=== PATIENT | female | born 1945 | race Two or more races ===

== ENCOUNTER 2019-12-07 18:10 | Outpatient (REF) | payer MEDICARE, SELFPAY | END 2019-12-07 18:11 | disposition home or self-care (01) | LOC: HO.LAB 18:10 | PROVIDERS: PCP Internal Medicine; Visit Provider Internal Medicine | DX: Z20.828 Contact with and (suspected) exposure to other viral communicable diseases (principal) | CPT/HCPCS: 87635 ==

== ENCOUNTER → 2019-12-21 09:29 | Outpatient (BNVA) | payer MEDICARE, SELFPAY | PROVIDERS: PCP Internal Medicine; Referring Provider Internal Medicine; Visit Provider Student in an Organized Health Care Education/Training Program | DX: M65.341 Trigger finger, right ring finger (principal) | CPT/HCPCS: 20552; 99213 ==

== ENCOUNTER 2019-12-22 13:10 | Outpatient (REF) | payer MEDICARE, SELFPAY | END 2019-12-22 13:11 | disposition home or self-care (01) | LOC: HO.LAB 13:10 | PROVIDERS: PCP Internal Medicine; Visit Provider Internal Medicine | DX: Z20.828 Contact with and (suspected) exposure to other viral communicable diseases (principal) | CPT/HCPCS: 87635 ==

== ENCOUNTER 2020-01-01 11:49 | Emergency (ER) | payer MEDICARE, SELFPAY ==
[2020-01-01 11:56] VITALS: BP 151/71; PULSE 91; RESP 20; TEMP 36.9; O2SAT 98; BMI 24.2
--- NOTE | 2020-01-01 12:09 | CT_ITS ---
EXAMINATION: CT FACIAL BONES WITHOUT CONTRAST CLINICAL INFORMATION: Fall with right periorbital soft tissue swelling. Evaluate for fracture. COMPARISON: None TECHNIQUE: Multidetector CT imaging of the facial bones was performed without the use of intravenous contrast. Coronal and sagittal reformats are reviewed. This CT examination was performed using dose optimization techniques as appropriate, variously including the following: *Automated exposure control *Adjustment of mA and/or kV according to patient size (this includes techniques or standardized protocols for targeted exams where dose is matched to indication/reason for exam; i.e. extremities or head) *Use of iterative reconstruction technique DLP: 266 mGy-cm FINDINGS: Right periorbital soft tissue swelling. No post septal involvement. No retrobulbar hematoma. Orbits and globes are intact. There is no acute maxillofacial fracture. The pterygoid plates are intact. The zygomatic arches are intact. The lamina papyracea are intact. The orbital rims are intact. Small mucous retention cyst present within the inferior alveolar recess of the left maxillary sinus. Minimal mucosal thickening within the right maxillary inferior alveolar recess. Paranasal sinuses are otherwise well aerated. There is no deviation of the nasal septum. The ostiomeatal complexes are clear. The lamina papyracea are intact. The ethmoid roofs are symmetric. The carotid canals are normally covered by bone. No maxillary periapical disease is seen. The mastoid air cells and visualized middle ear cavities are well-aerated. The TMJs are unremarkable. The imaged portions of the brain demonstrate no acute abnormality. CT/CT facial bones wo con IMPRESSION: No acute facial bone fractures. Right periorbital soft tissue swelling.
--- NOTE | 2020-01-01 12:11 | ED_ITS ---
HPI - Fall General Chief Complaint: Eye Problems Stated Complaint: eye swelling, fall Time Seen by Provider: 01/01/20 12:01 Source: patient Mode of arrival: ambulatory Limitations: no limitations History of Present Illness HPI Narrative: 74 years old female who is in good health condition, was walking in the street yesterday tripped and fell forward could not catch her fall and fell landed on her face patient sustained black and blue around her right eye swelling, the falll has been 24 hours ago, no LOC, no headache, no nausea, no vomiting, no photophobia, no blurry vision, no vision change, Onset (ago): day(s) (1) Fall from: standing Fall witnessed: no Place fall occurred: street Loss of consciousness: none Symptoms prior to fall: none Context: tripped/slipped Location of injury: face Related Data Home Medications Medication Instructions Recorded Confirmed acetaminophen 325 mg capsule 325 mg PO QID PRN 12/21/19 atorvastatin 40 mg tablet 40 mg PO DAILY 12/21/19 cholecalciferol (vitamin D3) 25 25 mcg PO DAILY 12/21/19 mcg (1,000 unit) capsule hydroxyzine HCl 50 mg tablet 50 mg PO BID PRN 12/21/19 lisinopril 5 mg tablet 5 mg PO DAILY 12/21/19 metformin 500 mg tablet 500 mg PO BID 12/21/19 multivitamin 1 tab PO DAILY 12/21/19 Previous Rx's Medication Instructions Recorded metoprolol succinate 25 mg 25 mg PO DAILY #90 cap 12/30/19 tablet,extended release 24 hr Allergies Allergy/AdvReac Type Severity Reaction Status Date / Time Penicillins Allergy Mild NUMBNESS Verified 12/21/19 09:41 Review of Systems Review of Systems: All other systems are reviewed and are negative Constitutional: Reports as per HPI and Reports no additional constitutional complaints Eyes: Reports as per HPI and Reports no additional eye complaints Reports system reviewed and no additional complaints, except as documented Cardiovascular: Reports as per HPI and Reports no additional cardiovascular complaints Respiratory: Reports as per HPI and Reports no additional respiratory complaints Gastrointestinal: Reports as per HPI and Reports no additional gastrointestinal complaints Genitourinary: Reports no additional female genitourinary complaints Musculoskeletal: Reports no additional musculoskeletal complaints Skin/Breast: Reports system reviewed and no additional complaints, except as docu Psychiatric: Reports no additional psychiatric complaints Endocrine: Reports no additional endocrine complaints Hematologic/Lymphatic: Reports no additional hematologic/lymphatic complaints Allergic/Immunologic: Reports no additional allergic/immunologic complaints Reports system reviewed and no additional complaints, except as documented and Reports Abnormal speech present REPLACED BY [facility] Past Medical History Medical History Arthritis Diabetes mellitus, type 2 Hypertension Trigger finger Trigger ring finger of right hand Social History Social History Household Members: None Housing: Apartment Alcohol intake: never Smoking Status: Never smoker Smoked in Last 30 Days: No Use of substances other than those prescribed or required for medical reasons: No Advance Directives: No Advance Directives Information Provided: No Physical Exam Vital Signs: Vital Signs: Vital Signs Temp Pulse Resp BP Pulse Ox 01/01/20 11:56 98.4 F 91 20 151/71 H 98 Body Mass Index 24.2 vital signs have been reviewed as normal and appeared to be correct. Blood pressure In the high range. Heart rate normal. Respiration rate normal. Temperature normal. Oxygen saturation normal. Appearance: Alert. Oriented X3. No acute distress. Head: Normal external exam. Normocephalic. Atraumatic. No [place] signs noted. No raccoon eyes noted Eyes: PERRLA. EOMI. Conjunctiva and sclera normal. Eyelids normal. right periorbital swelling and ecchymosis. ENT: EAC normal. TM's Normal. Pharynx normal. Uvula midline. Moist mucous membranes. No trismus noted. No drooling noted. No muffled voice noted. Neck: Normal inspection. Neck supple. FROM. No adenopathy. Thyroid Normal. No meningeal signs. No neck mass noted. CVS: Normal heart rate and rhythm. Heart sound normal. No murmurs noted. Pulses normal throughout. Respiratory: No respiratory distress. Painless inspiration. Breath sounds normal. No wheezes/rales/rhonchi noted. Chest nontender. No accessory muscle usage noted or decreased air movement noted. Abdomen: Soft and nontender. Bowel sounds normal in all 4 quadrants. No distention noted. No organomegaly noted. No visible injury noted. Back: No CVA tenderness. Full range of motion noted. Skin: Skin warm and dry. Normal skin color. Normal skin turgor. No rashes/lesions/lacerations noted. Extremities: No lower extremity edema. Extremities exhibit normal range of motion. Extremities nontender. Neuro: Oriented X 3. No motor deficit. No sensory deficit. Reflexes normal. GCS 15 MDM - Fall MDM Narrative Medical decision making narrative: Assessment and plan. 74-year-old female tripped and fell yesterday hurt her right periorbital area, CT was unremarkable for acute fracture, GCS of 15, neuro exam is normal. Will discharge the patient. Imaging Data Facial CT: Radiologist's impression: No acute facial bone fractures. Right periorbital soft tissue swelling. Discharge Plan Discharge Clinical Impression: Accident due to mechanical fall without injury Qualifiers: Encounter type: initial encounter Qualified Code(s): W19.XXXA - Unspecified fall, initial encounter Facial contusion Qualifiers: Encounter type: initial encounter Qualified Code(s): S00.83XA - Contusion of other part of head, initial encounter Patient Disposition: Home, Self-Care Instructions: Facial Contusion (ED) Prescriptions: No Action metoprolol succinate 25 mg tablet extended release 24 hr 25 mg PO DAILY Qty: 90 RF: 3 lisinopril 5 mg tablet 5 mg PO DAILY RF: 0 metformin 500 mg tablet 500 mg PO BID RF: 0 atorvastatin 40 mg tablet 40 mg PO DAILY RF: 0 cholecalciferol (vitamin D3) 25 mcg (1,000 unit) capsule 25 mcg PO DAILY RF: 0 acetaminophen 325 mg capsule 325 mg PO QID PRNRF: 0 hydroxyzine HCl 50 mg tablet 50 mg PO BID PRNRF: 0 multivitamin [One Daily Multivitamin] Tablet 1 tab PO DAILY RF: 0 Referrals: Maxx Prieto MD [Primary Care Provider] - 2 days
[2020-01-01 14:08] VITALS: BP 142/65; PULSE 70; RESP 18; TEMP 36.9; O2SAT 98
== END 2020-01-01 19:37 | disposition home or self-care (01) ==
PROVIDERS: Emergency Provider Emergency Medicine; PCP Internal Medicine
DX: S00.93XA Contusion of unspecified part of head, initial encounter (principal); G44.309 Post-traumatic headache, unspecified, not intractable; W01.10XA Fall on same level from slipping, tripping and stumbling with subsequent striking against unspecified object, initial encounter; Y93.01 Activity, walking, marching and hiking; Y92.480 Sidewalk as the place of occurrence of the external cause; Y99.9 Unspecified external cause status; Z79.899 Other long term (current) drug therapy
CPT/HCPCS: 70486; 99284

== ENCOUNTER 2020-01-30 09:01 | Outpatient (REF) | payer MEDICARE, SELFPAY ==
[2020-01-30 10:21] LABS: MANUAL DIFF FLAG NO
[2020-01-30 10:33] LABS: Basophils Percent Auto 0.3 % (0-2); Eosinophils Absolute Auto 0.1 X10*3/uL (0.0-0.4); Eosinophils Percent Auto 0.8 % (0-4); Hematocrit 37.7 % (37-47); Hemoglobin 12.3 g/dl (12.0-16.0); Imm Gran Abs Auto 0.01 X10*3/uL (0.00-0.03); Imm Gran Pct Auto 0.2 % (0.0-0.4); Lymphocytes Absolute Auto 1.6 X10*3/uL (1.2-4.9); Lymphocytes Percent Auto 24.5 % (20-40); Mean Corpuscular HGB Conc 32.6 g/dl (31.0-35.0); Mean Corpuscular Hemoglobin 29.8 pg (27.0-33.0); Mean Corpuscular Volume 91.3 fL (80-98); Mean Platelet Volume 10.3 fL (9.4-12.3); Monocytes Absolute Auto 0.4 X10*3/uL (0.1-1.2); Monocytes Percent Auto 6.2 % (2-11); Neutrophils Absolute Auto 4.4 X10*3/uL (2.0-8.3); Platelet Count 280 X10*3/uL (160-400); Red Blood Count 4.13 X10*6/uL (4.20-5.50); Red Cell Distribution Width 13.8 % (11.0-16.0); White Blood Count 6.4 X10*3/uL (4.8-10.8)
[2020-01-30 10:49] LABS: Glucose Urine UA NEG (NEG); Leukocyte Esterase Urine 2+ (NEG); Nitrite Urine NEG (NEG); Specific Gravity - Urine <= 1.005 (1.005-1.025); Urine Blood NEG (NEG); Urine Ketones NEG (NEG); Urine Protein NEG (NEG-TRACE)
[2020-01-30 10:50] LABS: Estimated Average Glucose 117 mg/dL; Hemoglobin A1c % 5.7 %
[2020-01-30 10:51] LABS: Appearance Urine CLEAR; Color Urine YELLOW
[2020-01-30 11:06] LABS: Bacteria Urine TRACE /LPF; RBC Urine 0 /HPF (0); Renal Epithelial Cells Urine 1+ /LPF; Squamous Epithelial Cell Urine 1+ /LPF
[2020-01-30 11:08] LABS: Alanine Aminotransferase 33 U/L (0-31); Alkaline Phosphatase 67 U/L (39-117); Anion Gap 10 (12-20); Aspartate Amino Transferase 28 U/L (5-31); Bilirubin Total 0.6 mg/dL (0.0-1.0); Blood Urea Nitrogen 11 mg/dL (9-16); Calcium 9.1 mg/dL (8.4-10.2); Carbon Dioxide 31 mmol/L (22-29); Chloride 101 mmol/L (96-108); Cholesterol 166 mg/dL; Estimated Glomerular Filt Rate > 60; Glucose Fasting 96 mg/dL (60-99); HDL Cholesterol 63 mg/dL; LDL Cholesterol Calculated 88 mg/dl; Potassium 4.1 mmol/l (3.3-5.1); Sodium 138 mmol/L (135-145); Total Protein 7.1 g/dL (6.5-8.0); Triglycerides 78 mg/dL
[2020-01-30 11:30] LABS: TSH reflex Free T4 1.88 mIU/mL (0.32-4.0); Vitamin D 25-OH Total 28.4 ng/mL (>30)
[2020-01-30 11:41] LABS: Folate 14.7 ng/mL (> or = 4.0); Vitamin B12 490 pg/mL (200-900)
[2020-01-30 12:38] LABS: Creatinine Urine 28.18 mg/dL; Microalbum/Creatinine Ratio Ur 56.7 ug/mg cr
== END 2020-01-30 09:02 | disposition home or self-care (01) ==
LOC: HO.LAB 09:01
PROVIDERS: PCP Internal Medicine; Visit Provider Nurse Practitioner Family
DX: E11.9 Type 2 diabetes mellitus without complications (principal); E78.00 Pure hypercholesterolemia, unspecified; I10 Essential (primary) hypertension; E53.8 Deficiency of other specified B group vitamins; K21.9 Gastro-esophageal reflux disease without esophagitis; E55.9 Vitamin D deficiency, unspecified; E66.3 Overweight
CPT/HCPCS: 36415; 80053; 80061; 81001; 82043; 82306; 82607; 82746; 83036; 84443; 85025; 87086

== ENCOUNTER 2020-03-08 10:28 | Outpatient (REF) | payer MEDICARE, SELFPAY ==
--- NOTE | 2020-03-08 10:32 | MM_ITS ---
EXAMINATION: MM SCREENING DIGITAL BREAST TOMOSYNTHESIS, BILATERAL CLINICAL INFORMATION: Screening. Asymptomatic. The lifetime risk of breast cancer based on the Tyrer-Cuzick Model is 3%. COMPARISON: Mammography: 02/17/2019, 02/11/2018, 01/19/2017 TECHNIQUE: Digital breast tomosynthesis is performed in both the craniocaudal and mediolateral oblique views along with computer-aided detection (CAD). Synthesized 2D images are generated from the tomosynthesis. FINDINGS: There are scattered areas of fibroglandular density (ACR BI-RADS breast composition Category b). Breast tissue composition borders on predominantly fatty. There is no significant mass or architectural abnormality. There are scattered bilateral benign coarse calcifications again seen including small oil cyst with peripheral calcification anterior medial left breast. There are some grouped coarse calcifications mid 3:00 right breast and posterior 9:00 right breast. No significant changes. MM/MM tomosynthesis screening BI IMPRESSION: No significant changes from prior studies. ASSESSMENT: BI-RADS 2: Benign RECOMMENDATION: Routine annual mammography screening. This patient's information was entered into a reminder system with a target due date for their next mammogram.
== END 2020-03-08 10:29 | disposition home or self-care (01) ==
LOC: HO.MAMMO 10:28
PROVIDERS: Visit Provider Internal Medicine
DX: Z12.31 Encounter for screening mammogram for malignant neoplasm of breast (principal)
CPT/HCPCS: 77063; 77067

== ENCOUNTER 2020-04-26 08:45 | Outpatient (REF) | payer MEDICARE, SELFPAY ==
[2020-04-26 09:49] LABS: MANUAL DIFF FLAG NO
[2020-04-26 09:59] LABS: Glucose Urine UA NEG (NEG); Leukocyte Esterase Urine 1+ (NEG); Nitrite Urine NEG (NEG); PH 5.5 (5.0-8.0); Specific Gravity - Urine 1.025 (1.005-1.025); UACC Culture Trigger YES; Urine Blood NEG (NEG); Urine Ketones NEG (NEG); Urine Protein NEG (NEG-TRACE)
[2020-04-26 10:00] LABS: Basophils Percent Auto 0.4 % (0-2); Eosinophils Absolute Auto 0.1 X10*3/uL (0.0-0.4); Eosinophils Percent Auto 1.8 % (0-4); Hematocrit 40.2 % (37-47); Hemoglobin 13.1 g/dl (12.0-16.0); Imm Gran Abs Auto 0.01 X10*3/uL (0.00-0.03); Imm Gran Pct Auto 0.2 % (0.0-0.4); Lymphocytes Absolute Auto 1.8 X10*3/uL (1.2-4.9); Lymphocytes Percent Auto 31.5 % (20-40); Mean Corpuscular HGB Conc 32.6 g/dl (31.0-35.0); Mean Corpuscular Hemoglobin 29.7 pg (27.0-33.0); Mean Corpuscular Volume 91.2 fL (80-98); Mean Platelet Volume 10.3 fL (9.4-12.3); Monocytes Absolute Auto 0.4 X10*3/uL (0.1-1.2); Monocytes Percent Auto 6.3 % (2-11); Neutrophils Absolute Auto 3.4 X10*3/uL (2.0-8.3); Neutrophils Percent Auto 59.8 % (45-73); Platelet Count 286 X10*3/uL (160-400); Red Blood Count 4.41 X10*6/uL (4.20-5.50); Red Cell Distribution Width 12.8 % (11.0-16.0); White Blood Count 5.6 X10*3/uL (4.8-10.8)
[2020-04-26 10:07] LABS: Appearance Urine CLEAR; Color Urine YELLOW
[2020-04-26 10:21] LABS: Alanine Aminotransferase 42 U/L (0-31); Albumin Level 4.1 g/dL (3.5-5.0); Alkaline Phosphatase 71 U/L (39-117); Anion Gap 13 (12-20); Aspartate Amino Transferase 32 U/L (5-31); Bilirubin Total 0.5 mg/dL (0.0-1.0); Blood Urea Nitrogen 13 mg/dL (9-16); Calcium 9.6 mg/dL (8.4-10.2); Carbon Dioxide 30 mmol/L (22-29); Chloride 104 mmol/L (96-108); Cholesterol 186 mg/dL; Estimated Glomerular Filt Rate > 60; Glucose Fasting 108 mg/dL (60-99); HDL Cholesterol 72 mg/dL; LDL Cholesterol Calculated 99 mg/dl; Sodium 142 mmol/L (135-145); Total Protein 7.3 g/dL (6.5-8.0); Triglycerides 75 mg/dL
[2020-04-26 10:22] LABS: Mucus Urine 1+ /LPF; RBC Urine 0 /HPF (0); Squamous Epithelial Cell Urine 1+ /LPF
[2020-04-26 10:24] LABS: Estimated Average Glucose 120 mg/dL; Hemoglobin A1c % 5.8 %
[2020-04-26 10:26] LABS: Creatinine Urine 106.18 mg/dL; Microalbum/Creatinine Ratio Ur 13.1 ug/mg cr
[2020-04-26 10:45] LABS: TSH reflex Free T4 2.56 uIU/mL (0.32-4.0); Vitamin D 25-OH Total 29.3 ng/mL (>30)
[2020-04-26 17:48] LABS: Folate 15.1 ng/mL (> or = 4.0); Vitamin B12 561 pg/mL (200-900)
== END 2020-04-26 08:46 | disposition home or self-care (01) ==
LOC: HO.LAB 08:45
PROVIDERS: Visit Provider Internal Medicine
DX: I10 Essential (primary) hypertension (principal); K21.9 Gastro-esophageal reflux disease without esophagitis; E53.8 Deficiency of other specified B group vitamins; E78.00 Pure hypercholesterolemia, unspecified; E11.9 Type 2 diabetes mellitus without complications; R00.2 Palpitations; E66.3 Overweight; E55.9 Vitamin D deficiency, unspecified
CPT/HCPCS: 36415; 80053; 80061; 81001; 81003; 82043; 82306; 82607; 82746; 83036; 84443; 85025; 87086

== ENCOUNTER 2020-06-20 08:24 | Outpatient (REF) | payer MEDICARE, SELFPAY ==
--- NOTE | ~2020-06-20 | MM_ITS ---
EXAMINATION: BONE DENSITOMETRY CLINICAL INDICATION: Asymptomatic menopausal state. COMPARISON: Previous BD dated 08/24/2015 and baseline BD dated 01/25/2007. TECHNIQUE: Using a flux - neutrinity DXA System (software version: 13.1) manufactured by [employer], dual-energy x-ray absorptiometry was performed of the lumbar spine and left hip. The images are of good technical quality. Summary results are attached. FINDINGS: AP SPINE L1-L4: Current: BMD 1.193 g/cm2, Z-score 1.9, T-score 0.1, normal, 0.4% increase from previous, 3.0% decrease from baseline (<5% change is not significant). Prior: BMD 1.188 g/cm2. Baseline: BMD 1.230 g/cm2. LEFT FEMUR, NECK: Current: BMD 0.968 g/cm2, Z-score 1.4, T-score -0.5, normal. Prior: BMD 0.959 g/cm2. Baseline: BMD 1.058 g/cm2. LEFT FEMUR, TOTAL: Current: BMD 1.003 g/cm2, Z-score 1.6, T-score 0.0, normal, 2.1% decrease from previous, 11.1% decrease from baseline (<5% change is not significant). Prior: BMD 1.025 g/cm2. Baseline: BMD 1.128 g/cm2. IDENTIFIED RISK FACTORS: Rheumatoid arthritis, recurrent falls, menopause. HISTORY OF FRACTURE: None listed. MEDICATIONS: Calcium supplements or multivitamin, vitamin D. MM/XR DEXA axial skeleton IMPRESSION: 1. DIAGNOSIS: Normal bone density based on the lowest T-score value of -0.5 in the femoral neck applying World Health Organization criteria. 2. 10-YEAR FRACTURE RISK PREDICTION, FRAX: Major osteoporotic fracture (clinical spine, forearm, hip or shoulder) 6.1%. Hip fracture 0.7%. 3. Treatment Recommendations: NOF guidelines recommend consideration for treatment in postmenopausal women and men age 50 and older presenting with the following: -A hip or vertebral (clinical or morphometric) fracture. -T-score less than or equal to -2.5 at the femoral neck or spine after appropriate evaluation to exclude secondary causes. -Low bone mass at the hip or spine and a 10-year fracture probability by FRAX of greater than or equal to 3% for hip fracture or greater than or equal to 20% for major osteoporotic fracture based on the [place] adapted WHO algorithm. 4. Other Recommendations: All treatment decisions require clinical judgment and consideration of individual patient factors, including patient preferences, comorbidities, previous drug use, risk factors not captured in the FRAX model (e.g. frailty, falls, vitamin D deficiency, increased bone turnover, interval significant decline in bone density) and possible under or overestimation of fracture risk by FRAX. FUTURE SCAN RECOMMENDATION: People with diagnosed cases of osteoporosis or at high risk for fracture should have regular bone mineral density tests. For patients eligible for Medicare, routine testing is allowed once every 2 years. The testing frequency can be increased to one year for patients who have rapidly progressing disease, those who are receiving or discontinuing medical therapy to restore bone mass, or have additional risk factors.
== END 2020-06-20 08:25 | disposition home or self-care (01) ==
LOC: HO.MAMMO 08:24
PROVIDERS: Visit Provider Internal Medicine
DX: Z13.820 Encounter for screening for osteoporosis (principal); M06.9 Rheumatoid arthritis, unspecified; Z78.0 Asymptomatic menopausal state; Z91.81 History of falling
CPT/HCPCS: 77080

== ENCOUNTER → 2020-09-04 08:25 | Outpatient (BNVA) | payer MEDICARE, SELFPAY | PROVIDERS: PCP Internal Medicine; Visit Provider Surgery Vascular Surgery | DX: I83.12 Varicose veins of left lower extremity with inflammation (principal) | CPT/HCPCS: 99202 ==

== ENCOUNTER 2020-09-25 12:39 | Outpatient (REF) | payer MEDICARE, SELFPAY ==
--- NOTE | ~2020-09-25 | US_ITS ---
EXAMINATION: RIGHT AND LEFT LOWER EXTREMITY VENOUS ULTRASOUND (REFLUX EXAM) CLINICAL INDICATION: Varicose veins of left lower extremity with inflammation. Patient gives history of bilateral lower extremity venous procedures but she does not remember what type. COMPARISON: None. TECHNIQUE: Color flow triplex imaging and compression Doppler was performed to evaluate both the deep and the superficial systems bilaterally. To evaluate the superficial system, the examination was performed in the upright position. Color-flow Doppler ultrasound and compression ultrasound were utilized. In addition, maneuvers were utilized to demonstrate reflux. FINDINGS: 1. DEEP VENOUS ULTRASOUND OF THE RIGHT LOWER EXTREMITY: Respiratory variation, normal compression and augmented flow are noted in the right common femoral vein as well as the right popliteal vein and there is no evidence of deep venous thrombosis at these locations. There is no reflux of contrast within the common femoral vein or at the greater saphenous vein junction. There is reflux of contrast within the mid superficial femoral vein of 1.2 seconds and in the popliteal vein at 1.6 seconds. There is no evidence of a popliteal fossa cyst. 2. SUPERFICIAL ULTRASOUND WITH DOPPLER OF RIGHT LOWER EXTREMITY: The right great saphenous vein remnant at the saphenofemoral junction measures 6 mm. There is no reflux seen at this level. The superficial femoral vein in the proximal thigh and midthigh as well as above the knee is not identified. The popliteal vein at the knee is not identified. Below the knee vein is not identified. Within the midcalf it measures 3 mm without reflux and at the ankle it measures 1 mm without reflux. The small saphenous vein at the saphenofemoral junction measures 7 mm in diameter and there is no reflux within the small saphenous vein down to the distal calf. There is a midcalf button riveter measuring 4 mm in diameter without reflux. There are varicosities seen off the greater saphenous vein remnant in the midthigh measuring 4 mm with reflux of 3 seconds duration and at the knee measuring 4 mm with reflux at 3.3 seconds duration. 3. DEEP VENOUS ULTRASOUND OF THE LEFT LOWER EXTREMITY: Respiratory variation, normal compression and augmented flow are noted in the left common femoral vein as well as the left popliteal vein and there is no evidence of deep venous thrombosis at these locations. There is no evidence of reflux in the deep system in either the common femoral vein or the popliteal vein. No popliteal fossa cyst is identified. There appears to be a small knee effusion. 4. SUPERFICIAL ULTRASOUND WITH DOPPLER OF LEFT LOWER EXTREMITY: Greater saphenous vein is not well identified to the level above the knee. There appears to be a few varices, studies present without reflux. At the level of the knee the vein measures 2 mm in diameter without reflux. At the level below the knee vessel measures 2 mm in diameter and has reflux up to 1.5 seconds. At the midcalf it measures 2 mm without reflux and at the left ankle it measures 1 mm without reflux. The small saphenous vein measures 4 mm in diameter at the saphenofemoral junction. No reflux is identified within the small saphenous vein down to the distal calf. US/US venous duplex LE BI IMPRESSION: No evidence of acute deep venous thrombosis within the deep system of the right and right lower extremity deep venous insufficiency from the mid femoral vein to the popliteal vein. Status post bilateral lower extremity venous procedures with appearance of ablation. No reflux is identified at either the right or left saphenofemoral junctions at the remnants. There is left lower extremity venous insufficiency below the knee up to 1.5 seconds in duration within greater saphenous vein. There are varicosities off the remnant within the right lower extremity at the distal thigh and knee.
== END 2020-09-25 12:40 | disposition home or self-care (01) ==
LOC: HO.US 12:39
PROVIDERS: Visit Provider Surgery Vascular Surgery
DX: I83.893 Varicose veins of bilateral lower extremities with other complications (principal); I83.12 Varicose veins of left lower extremity with inflammation
CPT/HCPCS: 93970

== ENCOUNTER → 2020-10-04 09:40 | Outpatient (BNVA) | payer MEDICARE, SELFPAY | PROVIDERS: PCP Internal Medicine; Visit Provider Surgery Vascular Surgery | DX: I83.12 Varicose veins of left lower extremity with inflammation (principal) | CPT/HCPCS: 99212 ==

== ENCOUNTER → 2020-11-02 09:22 | Outpatient (BNVA) | payer MEDICARE, SELFPAY | PROVIDERS: PCP Internal Medicine; Referring Provider Internal Medicine; Visit Provider Surgery Vascular Surgery | DX: I83.12 Varicose veins of left lower extremity with inflammation (principal); I87.8 Other specified disorders of veins | CPT/HCPCS: 36475 ==

== ENCOUNTER 2020-11-07 08:32 | Outpatient (REF) | payer MEDICARE, SELFPAY ==
[2020-11-07 09:27] LABS: MANUAL DIFF FLAG NO
[2020-11-07 09:39] LABS: Basophils Percent Auto 0.4 % (0-2); Eosinophils Absolute Auto 0.1 X10*3/uL (0.0-0.4); Eosinophils Percent Auto 1.6 % (0-4); Hematocrit 39.2 % (37-47); Hemoglobin 12.6 g/dl (12.0-16.0); Imm Gran Abs Auto 0.01 X10*3/uL (0.00-0.03); Imm Gran Pct Auto 0.2 % (0.0-0.4); Lymphocytes Absolute Auto 1.6 X10*3/uL (1.2-4.9); Lymphocytes Percent Auto 32.9 % (20-40); Mean Corpuscular HGB Conc 32.1 g/dl (31.0-35.0); Mean Corpuscular Hemoglobin 29.2 pg (27.0-33.0); Mean Corpuscular Volume 90.7 fL (80-98); Mean Platelet Volume 10.2 fL (9.4-12.3); Monocytes Absolute Auto 0.4 X10*3/uL (0.1-1.2); Monocytes Percent Auto 8.7 % (2-11); Neutrophils Absolute Auto 2.8 X10*3/uL (2.0-8.3); Neutrophils Percent Auto 56.2 % (45-73); Platelet Count 291 X10*3/uL (160-400); Red Blood Count 4.32 X10*6/uL (4.20-5.50); Red Cell Distribution Width 13.2 % (11.0-16.0); White Blood Count 4.9 X10*3/uL (4.8-10.8)
[2020-11-07 09:54] LABS: Appearance Urine CLEAR; Color Urine YELLOW; Glucose Urine UA NEG (NEG); Leukocyte Esterase Urine TRACE (NEG); Nitrite Urine NEG (NEG); UACC Culture Trigger YES; Urine Blood NEG (NEG); Urine Ketones NEG (NEG); Urine Protein NEG (NEG-TRACE)
[2020-11-07 10:13] LABS: Alanine Aminotransferase 23 U/L (0-31); Albumin Level 3.9 g/dL (3.5-5.0); Alkaline Phosphatase 69 U/L (39-117); Anion Gap 14 (12-20); Aspartate Amino Transferase 27 U/L (5-31); Bilirubin Total 0.4 mg/dL (0.0-1.0); Blood Urea Nitrogen 11 mg/dL (9-16); Calcium 9.9 mg/dL (8.4-10.2); Carbon Dioxide 29 mmol/L (22-29); Chloride 103 mmol/L (96-108); Cholesterol 157 mg/dL; Estimated Glomerular Filt Rate > 60; Glucose Fasting 101 mg/dL (60-99); HDL Cholesterol 60 mg/dL; LDL Cholesterol Calculated 84 mg/dl; Potassium 5.1 mmol/L (3.3-5.1); Sodium 141 mmol/L (135-145); Total Protein 6.8 g/dL (6.5-8.0); Triglycerides 69 mg/dL
[2020-11-07 10:32] LABS: Estimated Average Glucose 120 mg/dL; Hemoglobin A1c % 5.8 %
[2020-11-07 10:37] LABS: TSH reflex Free T4 2.78 uIU/mL (0.32-4.0); Vitamin D 25-OH Total 33.9 ng/mL (>30)
[2020-11-07 10:46] LABS: RBC Urine 0 /HPF (0); Squamous Epithelial Cell Urine 1+ /LPF; WBC Urine 0-2 /HPF (0-4)
[2020-11-07 10:51] LABS: Folate 19.5 ng/mL (> or = 4.0); Vitamin B12 405 pg/mL (200-900)
[2020-11-07 11:07] LABS: Creatinine Urine 53.63 mg/dL; Microalbum/Creatinine Ratio Ur 11.1 ug/mg cr
== END 2020-11-07 08:33 | disposition home or self-care (01) ==
LOC: HO.LAB 08:32
PROVIDERS: PCP Internal Medicine; Visit Provider Internal Medicine
DX: E11.9 Type 2 diabetes mellitus without complications (principal); E78.00 Pure hypercholesterolemia, unspecified; I10 Essential (primary) hypertension; E53.8 Deficiency of other specified B group vitamins; E55.9 Vitamin D deficiency, unspecified; K21.9 Gastro-esophageal reflux disease without esophagitis; E66.3 Overweight; R00.2 Palpitations
CPT/HCPCS: 36415; 80053; 80061; 81001; 81003; 82043; 82306; 82607; 82746; 83036; 84443; 85025; 87086

== ENCOUNTER 2020-11-15 09:25 | Outpatient (REF) | payer MEDICARE, SELFPAY ==
--- NOTE | ~2020-11-15 | XR_ITS ---
EXAMINATION: XR KNEE, LEFT CLINICAL INFORMATION: Left knee pain. History of fall last year. COMPARISON: None TECHNIQUE: Four views of the left knee. FINDINGS: There is tricompartmental osteophyte formation. The joint spaces are maintained. No acute fracture or subluxation. No overt knee joint effusion. No chondrocalcinosis. 0.3 cm osteochondral body is present within the posterior knee joint. XR/XR knee LT 4V IMPRESSION: * No acute fracture or malalignment at the left knee. * Mild tricompartment osteoarthritis. A small intra-articular osteochondral body is present within the posterior knee joint.
== END 2020-11-15 09:26 | disposition home or self-care (01) ==
LOC: HO.XRAY 09:25
PROVIDERS: PCP Internal Medicine; Visit Provider Internal Medicine
DX: M25.562 Pain in left knee (principal)
CPT/HCPCS: 73564

== ENCOUNTER → 2021-01-18 10:36 | Outpatient (BNVA) | payer MEDICARE, SELFPAY | PROVIDERS: PCP Internal Medicine; Visit Provider Physician Assistant | DX: M17.12 Unilateral primary osteoarthritis, left knee (principal) | CPT/HCPCS: 20610; 99212; J1040 ==

== ENCOUNTER 2021-02-12 08:28 | Outpatient (REF) | payer MEDICARE, SELFPAY ==
[2021-02-12 08:57] LABS: MANUAL DIFF FLAG NO
[2021-02-12 09:31] LABS: Basophils Percent Auto 0.3 % (0-2); Eosinophils Absolute Auto 0.1 X10*3/uL (0.0-0.4); Eosinophils Percent Auto 1.2 % (0-4); Hematocrit 38.5 % (37.0-47.0); Hemoglobin 12.5 g/dl (12.0-16.0); Imm Gran Abs Auto 0.02 X10*3/uL (0.00-0.03); Imm Gran Pct Auto 0.3 % (0.0-0.4); Lymphocytes Absolute Auto 2.1 X10*3/uL (1.2-4.9); Mean Corpuscular HGB Conc 32.5 g/dl (31.0-35.0); Mean Corpuscular Hemoglobin 29.6 pg (27.0-33.0); Mean Platelet Volume 10.1 fL (9.4-12.3); Monocytes Absolute Auto 0.4 X10*3/uL (0.1-1.2); Monocytes Percent Auto 6.9 % (2-11); Neutrophils Absolute Auto 3.3 x10*3/uL (2.0-8.3); Neutrophils Percent Auto 56.3 % (45-73); Platelet Count 316 X10*3/uL (160-400); Red Blood Count 4.23 X10*6/uL (4.20-5.50); Red Cell Distribution Width 13.3 % (11.0-16.0); White Blood Count 5.9 X10*3/uL (4.8-10.8)
[2021-02-12 09:40] LABS: Estimated Average Glucose 123 mg/dL; Hemoglobin A1c % 5.9 %
[2021-02-12 10:06] LABS: Alanine Aminotransferase 26 U/L (0-31); Alkaline Phosphatase 69 U/L (39-117); Anion Gap 13 (12-20); Aspartate Amino Transferase 26 U/L (5-31); Bilirubin Total 0.4 mg/dL (0.0-1.0); Blood Urea Nitrogen 10 mg/dL (9-16); Carbon Dioxide 28 mmol/L (22-29); Chloride 104 mmol/L (96-108); Cholesterol 178 mg/dL; Estimated Glomerular Filt Rate > 60; Glucose Fasting 101 mg/dL (60-99); HDL Cholesterol 64 mg/dL; LDL Cholesterol Calculated 100 mg/dl; Potassium 4.6 mmol/L (3.3-5.1); Sodium 140 mmol/L (135-145); Triglycerides 70 mg/dL
[2021-02-12 10:08] LABS: Appearance Urine CLEAR; Color Urine YELLOW; Glucose Urine UA NEG (NEG); Leukocyte Esterase Urine 1+ (NEG); Nitrite Urine NEG (NEG); PH 5.5 (5.0-8.0); Specific Gravity - Urine 1.015 (1.005-1.025); UACC Culture Trigger YES; Urine Blood NEG (NEG); Urine Ketones NEG (NEG); Urine Protein NEG (NEG-TRACE)
[2021-02-12 10:15] LABS: TSH reflex Free T4 3.09 uIU/mL (0.32-4.0)
[2021-02-12 10:32] LABS: Creatinine Urine 79.05 mg/dL; Microalbum/Creatinine Ratio Ur 10.1 ug/mg cr
[2021-02-12 10:41] LABS: RBC Urine 0 /HPF (0)
[2021-02-12 10:42] LABS: Mucus Urine 2+ /LPF; Renal Epithelial Cells Urine TRACE /LPF; Squamous Epithelial Cell Urine 1+ /LPF
[2021-02-12 11:23] LABS: Folate 19.5 ng/mL (> or = 4.0); Vitamin B12 480 pg/mL (200-900)
== END 2021-02-12 08:29 | disposition home or self-care (01) ==
LOC: HO.LAB 08:28
PROVIDERS: PCP Internal Medicine; Visit Provider Internal Medicine
DX: E53.8 Deficiency of other specified B group vitamins (principal); I10 Essential (primary) hypertension; E55.9 Vitamin D deficiency, unspecified; E11.9 Type 2 diabetes mellitus without complications; E78.00 Pure hypercholesterolemia, unspecified
CPT/HCPCS: 36415; 80053; 80061; 81001; 81003; 82043; 82306; 82607; 82746; 83036; 84443; 85025; 87086

== ENCOUNTER 2021-03-21 08:24 | Outpatient (REF) | payer MEDICARE, SELFPAY ==
--- NOTE | ~2021-03-21 | MM_ITS ---
EXAMINATION: MM SCREENING DIGITAL BREAST TOMOSYNTHESIS, BILATERAL CLINICAL INFORMATION: Screening. Asymptomatic. The lifetime risk of breast cancer based on the Tyrer-Cuzick Model is 3%. COMPARISON: Mammography: 03/08/2020, 02/17/2019, 02/11/2018 TECHNIQUE: Digital breast tomosynthesis is performed in both the craniocaudal and mediolateral oblique views along with computer-aided detection (CAD). Synthesized 2D images are generated from the tomosynthesis. FINDINGS: There are scattered areas of fibroglandular density (ACR BI-RADS breast composition Category b). There are no significant masses, abnormal calcifications, or other abnormalities. Breast tissue composition borders on predominantly fatty. There is no developing density or interval architectural abnormality. No significant changes from prior studies. MM/MM tomosynthesis screening BI IMPRESSION: No mammographic evidence of malignancy. ASSESSMENT: BI-RADS 2: Benign RECOMMENDATION: Routine annual mammography screening. This patient's information was entered into a reminder system with a target due date for their next mammogram.
== END 2021-03-21 08:25 | disposition home or self-care (01) ==
LOC: HO.MAMMO 08:24
PROVIDERS: Visit Provider Internal Medicine
DX: Z12.31 Encounter for screening mammogram for malignant neoplasm of breast (principal)
CPT/HCPCS: 77063; 77067

== ENCOUNTER 2021-10-30 09:24 | Outpatient (REF) | payer MEDICARE, SELFPAY ==
--- NOTE | ~2021-10-30 | XR_ITS ---
EXAMINATION: XR HIP, RIGHT CLINICAL INFORMATION: Right hip pain COMPARISON: None TECHNIQUE: Two views of the right hip. FINDINGS: No fracture or dislocation. The right hip is well aligned. The joint space is maintained. Mild subchondral sclerosis. The right hemipelvis is intact. Soft tissues appear unremarkable. XR/XR hip RT min 2V IMPRESSION: Mild degenerative change of the right hip.
== END 2021-10-30 09:25 | disposition home or self-care (01) ==
LOC: HO.XRAY 09:24
PROVIDERS: PCP Internal Medicine; Visit Provider Internal Medicine
DX: M25.551 Pain in right hip (principal)
CPT/HCPCS: 73502

== ENCOUNTER 2021-11-13 09:55 | Outpatient (REF) | payer MEDICARE, SELFPAY ==
[2021-11-13 10:28] LABS: MANUAL DIFF FLAG NO
[2021-11-13 11:23] LABS: Appearance Urine Clear; Color Urine Yellow; Glucose Urine UA Negative (Negative); Leukocyte Esterase Urine Moderate (2+) (Negative); Nitrite Urine Negative (Negative); Specific Gravity - Urine 1.015 (1.005-1.025); UMIC TRIGGER UACC YES; Urine Blood Negative (Negative); Urine Ketones Negative (Negative); Urine Protein Negative (Neg-Trace)
[2021-11-13 11:27] LABS: Basophils Percent Auto 0.3 % (0-2); Eosinophils Absolute Auto 0.1 X10*3/uL (0.0-0.4); Eosinophils Percent Auto 1.1 % (0-4); Hematocrit 40.3 % (37.0-47.0); Hemoglobin 12.9 g/dl (12.0-16.0); Imm Gran Abs Auto 0.02 X10*3/uL (0.00-0.03); Imm Gran Pct Auto 0.3 % (0.0-0.4); Lymphocytes Absolute Auto 2.1 X10*3/uL (1.2-4.9); Lymphocytes Percent Auto 31.7 % (20-40); Mean Corpuscular Hemoglobin 28.7 pg (27.0-33.0); Mean Corpuscular Volume 89.8 fL (80.0-98.0); Mean Platelet Volume 10.2 fL (9.4-12.3); Monocytes Absolute Auto 0.4 X10*3/uL (0.1-1.2); Monocytes Percent Auto 5.6 % (2-11); Platelet Count 328 X10*3/uL (160-400); Red Blood Count 4.49 X10*6/uL (4.20-5.50); Red Cell Distribution Width 13.3 % (11.0-16.0); White Blood Count 6.6 X10*3/uL (4.8-10.8)
[2021-11-13 11:43] LABS: Bacteria Urine None Seen (None Seen); Hyaline Casts Urine 0-2 /LPF (0-2); RBC Urine 0-2 /HPF (0-2); Squamous Epithelial Cell Urine 0-2 /HPF (0-2); WBC Urine 0-5 /HPF (0-5)
[2021-11-13 11:45] LABS: Estimated Average Glucose 117 mg/dL; Hemoglobin A1c % 5.7 %
[2021-11-13 11:46] LABS: Creatinine Urine 128.14 mg/dL; Microalbum/Creatinine Ratio Ur 10.1 ug/mg cr
[2021-11-13 11:57] LABS: UACC Culture Trigger YES
[2021-11-13 12:08] LABS: Alanine Aminotransferase 25 U/L (0-31); Albumin Level 4.2 g/dL (3.5-5.0); Alkaline Phosphatase 78 U/L (39-117); Anion Gap 14 (12-20); Aspartate Amino Transferase 25 U/L (5-31); Bilirubin Total 0.5 mg/dL (0.0-1.0); Blood Urea Nitrogen 11 mg/dL (9-16); Carbon Dioxide 30 mmol/L (22-29); Chloride 101 mmol/L (96-108); Cholesterol 157 mg/dL; Estimated Glomerular Filt Rate > 60; Glucose Fasting 96 mg/dL (60-99); HDL Cholesterol 62 mg/dL; LDL Cholesterol Calculated 83 mg/dl; Potassium 4.7 mmol/L (3.3-5.1); Sodium 140 mmol/L (135-145); Total Protein 7.3 g/dL (6.5-8.0); Triglycerides 64 mg/dL
== END 2021-11-13 09:56 | disposition home or self-care (01) ==
LOC: HO.LAB 09:55
PROVIDERS: PCP Internal Medicine; Visit Provider Internal Medicine
DX: E78.00 Pure hypercholesterolemia, unspecified (principal); E11.9 Type 2 diabetes mellitus without complications; E55.9 Vitamin D deficiency, unspecified; N18.30 Chronic kidney disease, stage 3 unspecified
CPT/HCPCS: 36415; 80053; 80061; 81001; 82043; 82306; 83036; 84443; 85025; 87086

== ENCOUNTER 2022-02-04 09:20 | Outpatient (REF) | payer MEDICARE, SELFPAY ==
[2022-02-04 09:32] LABS: MANUAL DIFF FLAG NO
[2022-02-04 09:58] LABS: Basophils Percent Auto 0.6 % (0-2); Eosinophils Absolute Auto 0.1 X10*3/uL (0.0-0.4); Eosinophils Percent Auto 0.9 % (0-4); Hematocrit 39.4 % (37.0-47.0); Hemoglobin 12.8 g/dl (12.0-16.0); Imm Gran Abs Auto 0.01 X10*3/uL (0.00-0.03); Imm Gran Pct Auto 0.2 % (0.0-0.4); Lymphocytes Absolute Auto 2.1 X10*3/uL (1.2-4.9); Lymphocytes Percent Auto 32.2 % (20-40); Mean Corpuscular HGB Conc 32.5 g/dl (31.0-35.0); Mean Corpuscular Hemoglobin 29.4 pg (27.0-33.0); Mean Corpuscular Volume 90.4 fL (80.0-98.0); Mean Platelet Volume 10.2 fL (9.4-12.3); Monocytes Absolute Auto 0.4 X10*3/uL (0.1-1.2); Monocytes Percent Auto 6.4 % (2-11); Neutrophils Absolute Auto 3.8 x10*3/uL (2.0-8.3); Neutrophils Percent Auto 59.7 % (45-73); Platelet Count 270 X10*3/uL (160-400); Red Blood Count 4.36 X10*6/uL (4.20-5.50); Red Cell Distribution Width 13.2 % (11.0-16.0); White Blood Count 6.4 X10*3/uL (4.8-10.8)
[2022-02-04 10:34] LABS: Estimated Average Glucose 120 mg/dL; Hemoglobin A1c % 5.8 %
[2022-02-04 11:41] LABS: Appearance Urine Clear; Color Urine Yellow; Glucose Urine UA Negative (Negative); Leukocyte Esterase Urine Trace (Negative); Nitrite Urine Negative (Negative); PH 5.5 (5.0-9.0); UMIC TRIGGER UACC YES; Urine Blood Negative (Negative); Urine Ketones Negative (Negative); Urine Protein Negative (Neg-Trace)
[2022-02-04 11:45] LABS: Bacteria Urine None Seen (None Seen); Hyaline Casts Urine 0-2 /LPF (0-2); RBC Urine 0-2 /HPF (0-2); Squamous Epithelial Cell Urine 0-2 /HPF (0-2); WBC Urine 0-5 /HPF (0-5)
[2022-02-04 12:09] LABS: Creatinine Urine 83.95 mg/dL; Microalbum/Creatinine Ratio Ur 8.3 ug/mg cr
[2022-02-04 13:45] LABS: Alanine Aminotransferase 19 U/L (0-31); Albumin Level 4.2 g/dL (3.5-5.0); Alkaline Phosphatase 76 U/L (39-117); Anion Gap 10 (12-20); Aspartate Amino Transferase 23 U/L (5-31); Bilirubin Total 0.5 mg/dL (0.0-1.0); Blood Urea Nitrogen 10 mg/dL (9-16); Calcium 9.5 mg/dL (8.4-10.2); Carbon Dioxide 32 mmol/L (22-29); Chloride 102 mmol/L (96-108); Cholesterol 149 mg/dL; Estimated Glomerular Filt Rate > 60; Glucose Fasting 102 mg/dL (60-99); HDL Cholesterol 63 mg/dL; LDL Cholesterol Calculated 74 mg/dl; Potassium 4.5 mmol/L (3.3-5.1); Sodium 139 mmol/L (135-145); Total Protein 7.2 g/dL (6.5-8.0); Triglycerides 60 mg/dL; Vitamin D 25-OH Total 45.8 ng/mL (>30)
== END 2022-02-04 09:21 | disposition home or self-care (01) ==
LOC: HO.LAB 09:20
PROVIDERS: PCP Internal Medicine; Visit Provider Internal Medicine
DX: E78.00 Pure hypercholesterolemia, unspecified (principal); E55.9 Vitamin D deficiency, unspecified; E11.9 Type 2 diabetes mellitus without complications; I10 Essential (primary) hypertension
CPT/HCPCS: 36415; 80053; 80061; 81001; 81003; 82043; 82306; 83036; 84443; 85025

== ENCOUNTER 2022-03-27 08:25 | Outpatient (REF) | payer MEDICARE, SELFPAY ==
--- NOTE | ~2022-03-27 | MM_ITS ---
EXAMINATION: MM SCREENING DIGITAL BREAST TOMOSYNTHESIS, BILATERAL CLINICAL INFORMATION: Screening. Asymptomatic. Prior reduction mammoplasty, 2007. The lifetime risk of breast cancer based on the Tyrer-Cuzick Model is 2%. COMPARISON: Mammography: 03/21/2021, 03/08/2020, 02/17/2019 TECHNIQUE: Digital breast tomosynthesis is performed in both the craniocaudal and mediolateral oblique views along with computer-aided detection (CAD). Synthesized 2D images are generated from the tomosynthesis. FINDINGS: There are scattered areas of fibroglandular density (ACR BI-RADS breast composition Category b). No significant changes from prior exams. There is minor scarring consistent with the remote reduction mammoplasty. There are no significant masses, abnormal calcifications, or other abnormalities. No developing density or architectural abnormality. There are scattered bilateral benign round and coarse calcifications. Incidental small oil cyst with rim calcification again seen anterior medial left breast. The axilla are unremarkable. MM/MM tomosynthesis screening BI IMPRESSION: No mammographic evidence of malignancy. ASSESSMENT: BI-RADS 2: Benign RECOMMENDATION: Routine annual mammography screening. This patient's information was entered into a reminder system with a target due date for their next mammogram.
== END 2022-03-27 08:26 | disposition home or self-care (01) ==
LOC: HO.MAMMO 08:25
PROVIDERS: PCP Internal Medicine; Visit Provider Internal Medicine
DX: Z12.31 Encounter for screening mammogram for malignant neoplasm of breast (principal)
CPT/HCPCS: 77063; 77067

== ENCOUNTER 2022-06-02 08:06 | Outpatient (REF) | payer OTHER, SELFPAY ==
[2022-06-02 08:21] LABS: MANUAL DIFF FLAG NO
[2022-06-02 09:05] LABS: Basophils Percent Auto 0.5 % (0-2); Eosinophils Absolute Auto 0.1 X10*3/uL (0.0-0.4); Eosinophils Percent Auto 1.1 % (0-4); Hemoglobin 12.1 g/dl (12.0-16.0); Imm Gran Abs Auto 0.01 X10*3/uL (0.00-0.03); Imm Gran Pct Auto 0.2 % (0.0-0.4); Lymphocytes Absolute Auto 2.5 X10*3/uL (1.2-4.9); Mean Corpuscular HGB Conc 31.8 g/dl (31.0-35.0); Mean Corpuscular Hemoglobin 29.2 pg (27.0-33.0); Mean Corpuscular Volume 91.6 fL (80.0-98.0); Mean Platelet Volume 10.5 fL (9.4-12.3); Monocytes Absolute Auto 0.5 X10*3/uL (0.1-1.2); Monocytes Percent Auto 7.2 % (2-11); Neutrophils Absolute Auto 3.3 x10*3/uL (2.0-8.3); Platelet Count 259 X10*3/uL (160-400); Red Blood Count 4.15 X10*6/uL (4.20-5.50); Red Cell Distribution Width 13.4 % (11.0-16.0); White Blood Count 6.3 X10*3/uL (4.8-10.8)
[2022-06-02 09:06] LABS: Appearance Urine Clear; Color Urine Yellow; Glucose Urine UA Negative (Negative); Leukocyte Esterase Urine Small (1+) (Negative); Nitrite Urine Negative (Negative); PH 5.5 (5.0-9.0); UMIC TRIGGER UACC YES; Urine Blood Negative (Negative); Urine Ketones Negative (Negative); Urine Protein Negative (Neg-Trace)
[2022-06-02 09:15] LABS: Bacteria Urine None Seen (None Seen); Hyaline Casts Urine 0-2 /LPF (0-2); RBC Urine 0-2 /HPF (0-2); Squamous Epithelial Cell Urine 0-2 /HPF (0-2); UACC Culture Trigger YES; WBC Urine 0-5 /HPF (0-5)
[2022-06-02 09:19] LABS: Estimated Average Glucose 117 mg/dL; Hemoglobin A1c % 5.7 %
[2022-06-02 09:57] LABS: Creatinine Urine 58.22 mg/dL; Microalbum/Creatinine Ratio Ur 10.3 ug/mg cr
[2022-06-02 09:58] LABS: Alanine Aminotransferase 22 U/L (0-31); Alkaline Phosphatase 69 U/L (39-117); Anion Gap 11 (12-20); Aspartate Amino Transferase 25 U/L (5-31); Bilirubin Total 0.8 mg/dL (0.0-1.0); Blood Urea Nitrogen 13 mg/dL (9-16); Calcium 9.4 mg/dL (8.4-10.2); Carbon Dioxide 29 mmol/L (22-29); Chloride 100 mmol/L (96-108); Cholesterol 161 mg/dL; Estimated Glomerular Filt Rate > 60; Glucose Fasting 103 mg/dL (60-99); HDL Cholesterol 67 mg/dL; LDL Cholesterol Calculated 84 mg/dl; Potassium 4.1 mmol/L (3.3-5.1); Sodium 136 mmol/L (135-145); Total Protein 6.7 g/dL (6.5-8.0); Triglycerides 51 mg/dL
[2022-06-02 10:15] LABS: Folate 17.4 ng/mL (> or = 4.0); TSH reflex Free T4 3.11 uIU/mL (0.32-4.0); Vitamin B12 387 pg/mL (200-900); Vitamin D 25-OH Total 43.1 ng/mL (>30)
== END 2022-06-02 08:07 | disposition home or self-care (01) ==
LOC: HO.LAB 08:06
PROVIDERS: PCP Internal Medicine; Visit Provider Internal Medicine
DX: E11.9 Type 2 diabetes mellitus without complications (principal); E55.9 Vitamin D deficiency, unspecified; I10 Essential (primary) hypertension; E53.8 Deficiency of other specified B group vitamins; E78.00 Pure hypercholesterolemia, unspecified; R82.90 Unspecified abnormal findings in urine
CPT/HCPCS: 36415; 80053; 80061; 81001; 81003; 82043; 82306; 82607; 82746; 83036; 84443; 85025; 87086

== ENCOUNTER 2022-06-11 11:12 | Outpatient (REF) | payer OTHER, SELFPAY ==
--- NOTE | ~2022-06-11 | XR_ITS ---
EXAMINATION: XR HAND, RIGHT CLINICAL INFORMATION: Pain COMPARISON: Hand radiographs 10/18/2018 TECHNIQUE: Three views of the right hand. FINDINGS: Osteopenia. Soft tissues are unremarkable.. No acute fracture or dislocation. Mild degenerative changes of the carpophalangeal, proximal and distal interphalangeal joints. XR/XR hand RT min 3V IMPRESSION: Mild degenerative changes of the hands. Osteopenia.
== END 2022-06-11 11:13 | disposition home or self-care (01) ==
LOC: HO.XRAY 11:12
PROVIDERS: PCP Internal Medicine; Visit Provider Internal Medicine
DX: M79.644 Pain in right finger(s) (principal)
CPT/HCPCS: 73130

== ENCOUNTER 2022-08-13 11:00 | Outpatient (RCR) | payer OTHER, SELFPAY ==
--- NOTE | 2022-07-16 09:56 | MHC.OT.EP ---
[address] [phone] Occupational Therapy Plan of Care Patient Name: Sophie Yuen Date of Evaluation: 07/16/22 Diagnosis: B/L hand pain and OA Pain Location: Pain free at rest 3/10 ache in base of right thumb/hand Pain Score: 3 Pain Scale Used: Numeric (0 - 10) Aggravating Factors: Opening a can or jar, hand writing Alleviating Factors: Ibuprophen Assessment: 76 yo female presents from PCP w/ c/o B/L hand pain and arthritis. She has hx of right trigger finger but received cortisone injection >5 years ago w/ good relief. On assessment today, she continues to report pain but primarily in right thumb base and at time radiating down radial wrist. 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 She will benefit from cont'd therapy services for joint protection, activity modification, HEP and use of modalities for comfort. 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 Thank you once again for your referral.
--- NOTE | 2022-08-13 11:35 | MHC.OT.DC ---
[address] [phone] F: [phone] Occupational Therapy Discharge Note Patient Name: Sophie Yuen Provider: Dr Maxx Prieto Diagnosis: B/L hand pain and OA Date of Evaluation: 07/16/22 Date of Discharge: 08/13/22 Treatments to Date: 6 Discharge Status: Achieved Goals Improved Function Independent with HEP Discharge Summary: Good follow through w/ joint protection and orthosis wear, now has glove for daytime and reports comfort. Pain free at rest during the daytime, some increased pain at night. Therapy goals met and pt Ind w/ HEP. Still with some pain over right radial wrist and may benefit from ortho assessment and possible cortisone injection for De Quervain's tendinopathy. Electronically Signed By: ROSLYN Huber/María CANDELARIOT Reviewed/agree with student documentation: Therapist: Please Sign and return to therapist, thank you for your referral.
== END 2022-08-13 11:36 | disposition home or self-care (01) ==
LOC: HO.OT 11:00
PROVIDERS: PCP Internal Medicine; Visit Provider Internal Medicine
DX: M19.041 Primary osteoarthritis, right hand (principal); M19.042 Primary osteoarthritis, left hand
CPT/HCPCS: 29125; 97110; 97140; 97165; 97760

== ENCOUNTER 2022-10-06 08:24 | Outpatient (REF) | payer OTHER, SELFPAY ==
[2022-10-06 08:50] LABS: MANUAL DIFF FLAG NO
[2022-10-06 09:17] LABS: Basophils Percent Auto 0.5 % (0-2); Eosinophils Absolute Auto 0.1 X10*3/uL (0.0-0.4); Eosinophils Percent Auto 1.2 % (0-4); Hematocrit 39.2 % (37.0-47.0); Hemoglobin 12.7 g/dl (12.0-16.0); Imm Gran Abs Auto 0.01 X10*3/uL (0.00-0.03); Imm Gran Pct Auto 0.2 % (0.0-0.4); Lymphocytes Absolute Auto 2.3 X10*3/uL (1.2-4.9); Lymphocytes Percent Auto 40.7 % (20-40); Mean Corpuscular HGB Conc 32.4 g/dl (31.0-35.0); Mean Corpuscular Hemoglobin 29.7 pg (27.0-33.0); Mean Corpuscular Volume 91.6 fL (80.0-98.0); Mean Platelet Volume 10.5 fL (9.4-12.3); Monocytes Absolute Auto 0.4 X10*3/uL (0.1-1.2); Monocytes Percent Auto 6.1 % (2-11); Neutrophils Absolute Auto 2.9 x10*3/uL (2.0-8.3); Neutrophils Percent Auto 51.3 % (45-73); Platelet Count 255 X10*3/uL (160-400); Red Blood Count 4.28 X10*6/uL (4.20-5.50); Red Cell Distribution Width 13.2 % (11.0-16.0); White Blood Count 5.7 X10*3/uL (4.8-10.8)
[2022-10-06 09:21] LABS: Appearance Urine Clear; Color Urine Yellow; Glucose Urine UA Negative (Negative); Leukocyte Esterase Urine Small (1+) (Negative); Nitrite Urine Negative (Negative); UMIC TRIGGER UACC YES; Urine Blood Negative (Negative); Urine Ketones Negative (Negative); Urine Protein Negative (Neg-Trace)
[2022-10-06 09:29] LABS: Bacteria Urine None Seen (None Seen); Hyaline Casts Urine 0-2 /LPF (0-2); RBC Urine 0-2 /HPF (0-2); Squamous Epithelial Cell Urine 0-2 /HPF (0-2); UACC Culture Trigger YES; WBC Urine 0-5 /HPF (0-5)
[2022-10-06 09:38] LABS: Estimated Average Glucose 114 mg/dL; Hemoglobin A1c % 5.6 %
[2022-10-06 10:38] LABS: Creatinine Urine 42.21 mg/dL; Microalbumin Urine < 5.0 mg/L
[2022-10-06 10:45] LABS: Alanine Aminotransferase 20 U/L (0-31); Albumin Level 4.1 g/dL (3.5-5.0); Alkaline Phosphatase 66 U/L (39-117); Anion Gap 15 (12-20); Aspartate Amino Transferase 25 U/L (5-31); Bilirubin Total 0.5 mg/dL (0.0-1.0); Blood Urea Nitrogen 13 mg/dL (9-16); Calcium 9.9 mg/dL (8.4-10.2); Carbon Dioxide 26 mmol/L (22-29); Chloride 102 mmol/L (96-108); Cholesterol 164 mg/dL; Estimated Glomerular Filt Rate > 60; Glucose Fasting 86 mg/dL (60-99); HDL Cholesterol 60 mg/dL; LDL Cholesterol Calculated 94 mg/dl; Potassium 3.7 mmol/L (3.3-5.1); Sodium 139 mmol/L (135-145); Total Protein 7.5 g/dL (6.5-8.0); Triglycerides 54 mg/dL
[2022-10-06 11:00] LABS: TSH reflex Free T4 3.13 uIU/mL (0.32-4.0); Vitamin D 25-OH Total 47.4 ng/mL (>30)
[2022-10-06 11:10] LABS: Folate 15.1 ng/mL (> or = 4.0); Vitamin B12 578 pg/mL (200-900)
== END 2022-10-06 08:25 | disposition home or self-care (01) ==
LOC: HO.LAB 08:24
PROVIDERS: PCP Internal Medicine; Visit Provider Internal Medicine
DX: E11.9 Type 2 diabetes mellitus without complications (principal); E55.9 Vitamin D deficiency, unspecified; E53.8 Deficiency of other specified B group vitamins; I10 Essential (primary) hypertension; E78.00 Pure hypercholesterolemia, unspecified; R30.0 Dysuria
CPT/HCPCS: 36415; 80053; 80061; 81001; 82043; 82306; 82607; 82746; 83036; 84443; 85025; 87086

== ENCOUNTER 2022-10-13 10:30 | Outpatient (AMB) | payer MEDICARE, SELFPAY ==
[2022-10-13 10:35] VITALS: BP 122/64; PULSE 77; O2SAT 98; BMI 22.6
--- NOTE | 2022-10-13 10:35 | A.OFFPC_ITS ---
Vital Signs 10/13/22 10:35 Height 5 ft 1 in Weight 119 lb 8 oz BMI 22.6 BP 122/64 Blood Pressure Location Lt brachial Position Sitting Pulse 77 Pulse Source Pulse Oximeter Pulse Oximetry (%) 98 Oxygen Delivery Method Room Air Intake Visit Reasons: hyperlipidemia, DM, HTN Compound Specialist Required: No Accompanied by: Self / Same As Patient Allergies Penicillins Allergy (Mild, Verified 10/13/22 11:33) NUMBNESS Medication List - Last Reconciled 10/13/22 by Maxx Prieto MD acetaminophen 650 mg (2 x 325 mg) PO BID-TID PRN atorvastatin 40 mg PO DAILY 90 days blood sugar diagnostic As directed blood sugar diagnostic (Accu-Chek Genie Plus test strips) As directed-In vitro twice a day blood sugar diagnostic (Accu-Chek Guide test strips) As directed- in vitro twice a day. blood-glucose meter Accu-Chek Genie Plus blood-glucose meter (Accu-Chek Genie Plus Meter) TEST 2 TIMES DAILY cholecalciferol (vitamin D3) (Vitamin D3) 50 mcg PO DAILY hydroxyzine HCl 50 mg PO BID PRN 30 days ibuprofen 600 mg PO Q6-8H PRN 30 days lancets (Accu-Chek Softclix Lancets) 1 ea topical BID losartan 25 mg PO DAILY metformin 500 mg PO BID multivitamin (One Daily Multivitamin tablet) 1 tab PO DAILY Tobacco use date assessed: 10/13/22 Fall risk assessment: No Falls in past year Last assessed Fall Risk: 10/13/22 Dental Screening Dental Screen Date: 10/13/22 Did you have a dental visit in the last 12 months?: No Did you have a dental problem in the last 6 months where you did not have access to dental care?: No Was dental information given to patient?: No HPI hyperlipidemia, DM, HTN HPI Details Patient comes in today for her follow up visit States that she feels okay She denies any headaches or dizziness Denies any chest pains, no SOB Reports that she was watching television at home yesterday when she suddenly experienced sensation of her heart racing States that her symptoms lasted for about 3 minutes and she did not experience any associated chest pains, headaches or dizziness then although she was very anxious States that she drank some cold water and her symptoms gradually subsided with no further recurrence No nausea/vomiting, no abdominal pain No change in bowel habits noted Had her follow up labs done last week - to discuss her results [facility] Medical History Anxiety Arthritis Benign essential hypertension Depression Diabetes Diabetes mellitus Diabetes mellitus, type 2 Fall GERD without esophagitis High cholesterol Hypertension Hypertension Intermittent palpitations Osteoarthritis Overweight (BMI 25.0-29.9) Pure hypercholesterolemia Trigger finger Trigger ring finger of right hand Varicose veins of bilateral lower extremities with pain Vitamin B12 deficiency Vitamin D deficiency Surgical History History of colonoscopy History of uterine prolapse Family History Father Hypertension Mother Stroke Son Hypertension Son Hypertension Sister No problems noted. Brother No problems noted. Social History Household Members: None Housing: Apartment Alcohol intake: never Patient Tobacco Use Status: Never used Tobacco e-Cigarette/Vaping Use: Never Used Second Hand Smoke Exposure: No service: No Current occupational status: disabled Cognitive needs: No Hearing needs: No Vision needs: Yes Questionnaire PHQ-9 Over the last 2 weeks, how often have you been bothered by any of the following problems? 1. Little interest or pleasure in doing things: not at all 2. Feeling down, depressed, or hopeless: not at all 3. Trouble falling or staying asleep, or sleeping too much: not at all 4. Feeling tired or having little energy: not at all 5. Poor appetite or overeating: not at all 6. Feeling bad about yourself - or that you are a failure or have let yourself or your family down: not at all 7. Trouble concentrating on things, such as reading the newspaper or watching television: not at all 8. Moving or speaking so slowly that other people could have noticed. Or the opposite - being so fidgety or restless that you have been moving around a lot more than usual: not at all 9. Thoughts that you would be better off or of hurting yourself in some way: not at all Total score: 0 Depression Screening Interpretation: Negative 79171 - PHQ-9 Billing: Yes Source: Developed by Drs. Krzysztof Phelps, Ketty Wong, Florentino Aiken and colleagues, with an educational kat from [employer]. Thrive Questionnaire Date Thrive assessed: 10/13/22 I am a: Patient What is your living situation today?: I have a steady place to live Within the past 12 months, did the food you bought not last and you didn't have the money to get more?: Never true Within the past 12 months, did you worry whether your food would run out before you got money to buy more?: Never true Do you have trouble paying for medicines?: No Do you have trouble getting transportation to medical appointments?: No Do you have trouble paying your heating and electricity bill?: No Do you have trouble taking care of your child, family member or friend?: No Do you have trouble with day-to-day activities such as bathing, preparing meals, shopping, managing finances, etc.?: No Are you currently unemployed and looking for a job?: No Are you interested in more education?: No Please select the resources that you would like help with: None Currently or been in a relationship where the following occur: no concerns reported AUDIT C Alcohol Use Questionnaire (AUDIT-C) 1. How often do you have a drink containing alcohol?: Never 3. How often do you have six or more drinks on one occasion?: Never Total Score: 0 Score Reviewed/Action Taken: Yes TALI-7 AMB Questionnaire TALI-7 Date TALI - 7 assessed: 10/13/22 Feeling nervous, anxious, or on edge: 0 = Not at all Not being able to stop or control worryin = Not at all Worrying too much about different things: 0 = Not at all Trouble relaxin = Not at all Being so restless that it is hard to sit still: 0 = Not at all Becoming easily annoyed or irritable: 0 = Not at all Feeling afraid as if something awful might happen: 0 = Not at all Total TALI-7 score (0-4 normal; 5-9 mild; 10-14 moderate; 15-21 severe): 0 Source: Developed by Drs. Krzysztof Phelps, Ketty Wong, Florentino Aiken and colleagues, with an educational kat from [employer]. Review of Systems Const Denies chills, Denies fatigue, Denies fever(s) and Denies headache(s) ENT Denies dysphagia, Denies dizziness, Denies otalgia, Denies headache(s), Reports hearing loss (now has hearing aids), Denies odynophagia and Denies sore throat Card Denies chest pain, Reports palpitations (occurred yesterday, lasting for about 3 minutes; no recurrence since) and Denies dyspnea Resp Denies cough and Denies dyspnea GI Denies abdominal pain, Denies constipation, Denies dysphagia, Denies heartburn, Denies diarrhea, Denies nausea, Denies odynophagia and Denies vomiting Denies difficulty voiding, Denies nocturia and Denies dysuria Musc Reports arthralgias (in the right hip, on and off; base of right thumb recently) Skin/Breast Denies rash Neuro Denies dizziness and Denies headache(s) Endo Denies fatigue and Reports palpitations (occurred yesterday, lasting for about 3 minutes; no recurrence since) Physical exam (Primary Care) Vital Signs: Last Vital Signs Pulse 77 10/13/22 10:35 BP 122/64 10/13/22 10:35 Pulse Ox 98 10/13/22 10:35 Oxygen Delivery Method Room Air 10/13/22 10:35 BMI result Body Mass Index 22.6 Tobacco/Smoking Status: Tobacco use Status Tobacco use date assessed 10/13/22 10/13/22 10:38 Patient Tobacco Use Status Never used Tobacco 10/13/22 10:38 e-Cigarette/Vaping Use Never Used 10/13/22 10:38 PHQ-9: PHQ-9 Score PHQ-9: Total score 0 10/13/22 11:01 Depression Screening Interpretation: Negative Thrive Assessment: Date of Thrive Assessment Date Thrive assessed 10/13/22 10/13/22 10:38 Currently or been in a relationship where the following occur: no concerns reported Const General: no acute distress and alert HENMT Ears: TM's normal bilaterally and EAC's normal Throat: Yes posterior oropharynx normal and Yes tonsils normal (no TP congestion noted) Neck Neck: Yes no lymphadenopathy and Yes supple Resp Auscultation: clear to auscultation bilaterally, no rales and no wheezes Cardio Rate: regular rate Rhythm: regular rhythm Heart sounds: no murmurs GI Palpation (GI): Soft to palpation and nontender Auscultation: normal bowel sounds Extrem Other: (+) scattered prominent varicose veins on both lower extremities that are tender on palpation General: Yes no clubbing, cyanosis or edema Right upper extremity: Extremity exam: right hand Details: tenderness Location: of the thumb Location: at the MCP joint and no swelling Results Reviewed Results Reviewed: Laboratory Tests 10/06/22 10/06/22 10/06/22 08:41 08:46 08:46 WBC 5.7 Hgb 12.7 Hct 39.2 Plt Count 255 Sodium 139 Potassium 3.7 Creatinine 0.70 Estimated GFR > 60 Fasting Glucose 86 Hemoglobin A1c % Calcium 9.9 AST 25 ALT 20 Triglycerides 54 Cholesterol 164 LDL Cholesterol, Calc 94 HDL Cholesterol 60 Vitamin B12 25-OH Vitamin D Total 47.4 TSH 3.13 Ur Specific [place] 1.010 Urine Protein Negative Urine Glucose (UA) Negative Urine Blood Negative 10/06/22 10/06/22 08:46 08:46 WBC Hgb Hct Plt Count Sodium Potassium Creatinine Estimated GFR Fasting Glucose Hemoglobin A1c % 5.6 Calcium AST ALT Triglycerides Cholesterol LDL Cholesterol, Calc HDL Cholesterol Vitamin B12 578 25-OH Vitamin D Total TSH Ur Specific [place] Urine Protein Urine Glucose (UA) Urine Blood Assessment and Plan Assessment & Plan (1) Pure hypercholesterolemia: Code(s): E78.00 - Pure hypercholesterolemia, unspecified Plan: Results of her labs done last week reviewed and discussed with patient Reinforced low cholesterol diet Continue Atorvastatin 40 mg QD Will recheck her labs in 4 months for follow up (2) Diabetes mellitus: Code(s): E11.9 - Type 2 diabetes mellitus without complications Qualifiers: Diabetes mellitus type: type 2 Diabetes mellitus senior care insulin use: without intermediate designer use Diabetes mellitus complication status: without complication Qualified Code(s): E11.9 - Type 2 diabetes mellitus without complications Plan: HgbA1c was at 5.6% on her labs done last week (was at 5.7% a few months ago) - goal is <7.0% Reinforced diabetic diet Continue Metformin 500 mg BID (3) Benign essential hypertension: Code(s): I10 - Essential (primary) hypertension Plan: Reinforced low sodium diet - goal is systolic BP of at least 130 to 140 mm or less Continue Losartan 25 mg QD (4) Intermittent palpitations: Code(s): R00.2 - Palpitations Plan: Holter monitor done a couple of years ago showed sinus rhythm with occasional PACs; echocardiogram done back in July 2017 came out normal Symptoms have since resolved; patient states that she rarely experiences any palpitations now although she reports experiencing an episode yesterday for about 3 minutes Was taking Metoprolol ER 25 mg QD previously for rate control but patient self- discontinued her Rx several months ago as she did not feel that she needed to continue on it - states that she has not had any recurrence of symptoms since stopping Metoprolol ER until yesterday Is advised to call [facility] if this occurs again - may need to reevaluate her and consider starting her back on low dose Metoprolol then (5) GERD without esophagitis: Code(s): K21.9 - Gastro-esophageal reflux disease without esophagitis Plan: Dietary restrictions reinforced (6) Osteoarthritis: Code(s): M19.90 - Unspecified osteoarthritis, unspecified site Qualifiers: Osteoarthritis location: unspecified site Osteoarthritis type: primary Qualified Code(s): M19.91 - Primary osteoarthritis, unspecified site Plan: Continue Acetaminophen 325 mg 2 tablets 2 to 3 times a day as needed for joint pain Her left knee pain has improved a lot with cortisone injection and physical therapy X-rays of the right hip done a few months ago revealed (+) mild OA changes; states that her right hip pain has subsided a lot since Have recommended to go to physical therapy if her hip pain flares up again; patient will call for referral if needed Follow-up with rheumatology and orthopedics as scheduled (7) Pain of right thumb: Code(s): M79.644 - Pain in right finger(s) Plan: X-rays of the right hand done in May 2022 revealed (+) mild degenerative changes of the hands Follow up with orthopedics as scheduled (8) Vitamin D deficiency: Code(s): E55.9 - Vitamin D deficiency, unspecified Plan: Corrected - continue Vitamin D3 1000 units QD (9) Vitamin B12 deficiency: Code(s): E53.8 - Deficiency of other specified B group vitamins Plan: Corrected - continue Vitamin B12 tablets 1000 mcg QD (10) Varicose veins of bilateral lower extremities with pain: Code(s): I83.813 - Varicose veins of bilateral lower extremities with pain Plan: S/P EVLT of the left lower extremity with (+) symptomatic improvement Follow up with Dr. Ricardo Yip for vascular surgery management as scheduled (11) Anxiety: Code(s): F41.9 - Anxiety disorder, unspecified Plan: Continue Hydroxyzine 50 mg Q HS PRN and Buspirone 10 mg BID (12) Depression: Code(s): F32.9 - Major depressive disorder, single episode, unspecified Qualifiers: Depression Type: major depressive disorder Major depression recurrence: recurrent Active/Remission status: currently active Major depression episode severity: unspecified Qualified Code(s): F33.9 - Major depressive disorder, recurrent, unspecified Plan: Continue Fluoxetine 10 mg QD Follow-up with Psychiatry as scheduled Plan Follow up in 4 months Orders: Orders Vitamin B12 and Folate 4 Months E53.8 - Deficiency of other specified B group vitamins Comprehensive Carman. Panel Fast 4 Months E78.00 - Pure hypercholesterolemia, unspecified Hemoglobin A1c 4 Months E11.9 - Type 2 diabetes mellitus without complications Lipid Panel 4 Months E78.00 - Pure hypercholesterolemia, unspecified TSH reflex Free T4 4 Months E78.00 - Pure hypercholesterolemia, unspecified Vitamin D 25-OH Total 4 Months E55.9 - Vitamin D deficiency, unspecified Microalbumin, Random (w Creat) 4 Months E11.9 - Type 2 diabetes mellitus without complications Complete Blood Count Auto Diff 4 Months I10 - Essential (primary) hypertension UA CC w/rflx Micro + Cult 4 Months R30.0 - Dysuria Coding Level of Care Code Est Pt Level 4 (41427) Diagnoses Pure hypercholesterolemia E78.00 Diabetes mellitus E11.9 Diabetes mellitus type: type 2 Diabetes mellitus intermediate designer insulin use: without senior care use Diabetes mellitus complication status: without complication Benign essential hypertension I10 Intermittent palpitations R00.2 GERD without esophagitis K21.9 Osteoarthritis M19.91 Osteoarthritis location: unspecified site Osteoarthritis type: primary Pain of right thumb M79.644 Vitamin D deficiency E55.9 Vitamin B12 deficiency E53.8 Varicose veins of bilateral lower extremities with pain I83.813 Anxiety F41.9 Depression F33.9 Depression Type: major depressive disorder Major depression recurrence: recurrent Active/Remission status: currently active Major depression episode severity: unspecified
== END 2022-10-13 11:53 | disposition home or self-care (01) ==
PROVIDERS: Visit Provider Internal Medicine
DX: E11.9 Type 2 diabetes mellitus without complications (principal); I10 Essential (primary) hypertension; K21.9 Gastro-esophageal reflux disease without esophagitis; E55.9 Vitamin D deficiency, unspecified; E78.00 Pure hypercholesterolemia, unspecified; R00.2 Palpitations; M19.91 Primary osteoarthritis, unspecified site; M79.644 Pain in right finger(s); E53.8 Deficiency of other specified B group vitamins; I83.813 Varicose veins of bilateral lower extremities with pain; F41.9 Anxiety disorder, unspecified; F33.9 Major depressive disorder, recurrent, unspecified
CPT/HCPCS: 99214

== ENCOUNTER 2022-10-30 01:09 | Emergency (ER) | payer OTHER, SELFPAY ==
--- NOTE | 2022-10-30 01:10 | ECG_ITS ---
Test Reason : palpations Blood Pressure : / mmHG Vent. Rate : 119 BPM Atrial Rate : 119 BPM P-R Int : 118 ms QRS Dur : 100 ms QT Int : 316 ms P-R-T Axes : 000 -21 017 degrees QTc Int : 444 ms Sinus tachycardia Incomplete right bundle branch block Borderline ECG When compared with ECG of 01-JAN-2015 09:02, Incomplete right bundle branch block is now Present Heart rate has increased Referred By: Generic ED Physician Electronically Signed By:PETER HILL
[2022-10-30 01:20] VITALS: BP 173/81; PULSE 117; RESP 18; TEMP 36.9; O2SAT 98; BMI 23.2
--- NOTE | 2022-10-30 01:48 | ED.ARRPALP ---
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 never had Holter monitoring past patient also complain loss patient's last bowel movement was 3 days ago no abdominal pain no nausea no vomiting no fever on arrival patient heart rate was 117 beats per minute regular Related Data Home Medications Medication Instructions Recorded Confirmed multivitamin (One Daily 1 tab PO DAILY 12/21/19 10/13/22 Multivitamin tablet) blood sugar diagnostic #10 ea 02/03/20 10/13/22 Previous Rx's Medication Instructions Recorded acetaminophen 325 mg tablet 650 mg PO BID-TID PRN fever or 07/17/20 pain #180 caps blood-glucose meter #1 ea 08/31/20 blood-glucose meter (Accu-Chek #1 ea 09/04/20 Genie Plus Meter) blood sugar diagnostic (Accu-Chek #100 ea 09/13/20 Genie Plus test strips) ibuprofen 600 mg tablet 600 mg PO Q6-8H PRN pain 30 days 09/27/20 #90 tabs hydroxyzine HCl 50 mg tablet 50 mg PO BID PRN anxiety 30 days 03/14/22 #60 tabs lancets (Accu-Chek Softclix 1 ea topical BID #100 ea 06/07/22 Lancets) blood sugar diagnostic (Accu-Chek #50 ea 06/13/22 Guide test strips) atorvastatin 40 mg tablet 40 mg PO DAILY 90 days #90 caps 07/06/22 metformin 500 mg tablet 500 mg PO BID #180 tabs 07/06/22 cholecalciferol (vitamin D3) 50 50 mcg PO DAILY #90 caps 10/07/22 mcg (2,000 unit) capsule (Vitamin D3) losartan 25 mg tablet 25 mg PO DAILY #90 tabs 10/07/22 docusate sodium 100 mg capsule 200 mg PO DAILY PRN constipation 10/30/22 (Colace) #60 caps Allergies Allergy/AdvReac Type Severity Reaction Status Date / Time Penicillins Allergy Mild NUMBNESS Verified 10/30/22 01:15 Review of Systems Review of Systems: Yes all other systems are reviewed and are negative [facility] Past Medical History Medical History Anxiety Arthritis Benign essential hypertension Depression Diabetes Diabetes mellitus Diabetes mellitus, type 2 Fall GERD without esophagitis High cholesterol Hypertension Hypertension Intermittent palpitations Osteoarthritis Overweight (BMI 25.0-29.9) Pure hypercholesterolemia Trigger finger Trigger ring finger of right hand Varicose veins of bilateral lower extremities with pain Vitamin B12 deficiency Vitamin D deficiency Surgical History History of colonoscopy History of uterine prolapse Family History Family History Father Hypertension Mother Stroke Son Hypertension Son Hypertension Sister No problems noted. Brother No problems noted. Social History Social History Household Members: None Housing: Apartment Alcohol intake: never Patient Tobacco Use Status: Never used Tobacco e-Cigarette/Vaping Use: Never Used Second Hand Smoke Exposure: No Advance Directives: No Advance Directives Information Provided: No service: No Current occupational status: disabled Cognitive needs: No Hearing needs: No Vision needs: Yes Physical Exam Vital Signs: Vital Signs: Last Vital Signs Temp 97.8 F 10/30/22 02:36 Pulse 100 10/30/22 02:36 Resp 12 10/30/22 02:36 BP 135/60 10/30/22 02:36 Pulse Ox 98 10/30/22 02:36 O2 Del Method Room Air 10/30/22 02:36 BMI result Body Mass Index 23.2 Appearance: Alert. Oriented X3. No acute distress. Eyes: PERRLA, No Nystagmus ENT: Pharynx normal. Oral Mucosa moist Neck: Normal inspection. Neck supple. CVS: Normal heart rate and rhythm. Pulses normal. Respiratory: No respiratory distress. Equal air entry bilateral, no wheezing/rales/rhonchi Abdomen: Soft and nontender. Bowel sounds are present, no mass palpable, no CVA tenderness Skin: Skin warm and dry. Normal skin color. Normal skin turgor. Extremities: No lower extremity edema. No calf tenderness Neuro: Oriented X 3. No motor deficit. 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 10/30/22 02:03 10/30/22 02:03 Labs: Lab Results 10/30/22 10/30/22 10/30/22 Range/Units 02:03 02:03 02:03 WBC 11.0 H (4.8-10.8) X10*3/uL RBC 4.17 L (4.20-5.50) X10*6/uL Hgb 12.3 (12.0-16.0) g/dl Hct 36.7 L (37.0-47.0) % MCV 88.0 (80.0-98.0) fL MCH 29.5 (27.0-33.0) pg MCHC 33.5 (31.0-35.0) g/dl RDW 13.1 (11.0-16.0) % Plt Count 258 (160-400) X10*3/uL MPV 9.3 L (9.4-12.3) fL Immature Gran % (Auto) 0.4 (0.0-0.4) % Neut % (Auto) 81.3 H (45-73) % Lymph % (Auto) 10.7 L (20-40) % [place]range % (Auto) 7.2 (2-11) % Eos % (Auto) 0.2 (0-4) % Baso % (Auto) 0.2 (0-2) % Lymph # (Auto) 1.2 (1.2-4.9) X10*3/uL [place] # (Auto) 0.8 (0.1-1.2) X10*3/uL Eos # (Auto) 0.0 (0.0-0.4) X10*3/uL Baso # (Auto) 0.0 (0.0-0.2) X10*3/uL Abs Immat Gran (auto) 0.04 H (0.00-0.03) X10*3/uL Absolute Neuts (auto) 8.9 H (2.0-8.3) x10*3/uL Absolute Nucleated RBC 0.000 (0.0-0.012) X10*3/uL Nucleated RBC % (auto) 0.0 (0.0-0.2) /100WBC Sodium 135 (135-145) mmol/L Potassium 3.5 (3.3-5.1) mmol/L Chloride 101 (96-108) mmol/L Carbon Dioxide 24 (22-29) mmol/L Anion Gap 14 (12-20) BUN 12 (9-16) mg/dL Creatinine 0.73 (0.5-1.4) mg/dL Estim Creat Clear Calc 47.8 Estimated GFR > 60 Random Glucose 129 H (60-115) mg/dL Calcium 9.9 (8.4-10.2) mg/dL Total Bilirubin 0.4 (0.0-1.0) mg/dL AST 22 (5-31) U/L ALT 19 (0-31) U/L Alkaline Phosphatase 77 (39-117) U/L Troponin I High Sens 7.1 (<3.5-17.0) ng/L Total Protein 7.3 (6.5-8.0) g/dL Albumin 3.9 (3.5-5.0) g/dL TSH 3.58 (0.32-4.0) uIU/mL Urine Color Urine Appearance Urine pH (5.0-9.0) Ur Specific Duncan (1.005-1.025) Urine Protein (Neg-Trace) mg/dL Urine Glucose (UA) (Negative) mg/dL Urine Ketones (Negative) mg/dL Urine Blood (Negative) Urine Nitrite (Negative) Ur Leukocyte Esterase (Negative) Urine RBC (0-2) /HPF Urine WBC (0-5) /HPF Ur Squamous Epith Cells (0-2) /HPF Urine Bacteria (None Seen) Hyaline Casts (0-2) /LPF 10/30/22 Range/Units 02:05 WBC (4.8-10.8) X10*3/uL RBC (4.20-5.50) X10*6/uL Hgb (12.0-16.0) g/dl Hct (37.0-47.0) % MCV (80.0-98.0) fL MCH (27.0-33.0) pg MCHC (31.0-35.0) g/dl RDW (11.0-16.0) % Plt Count (160-400) X10*3/uL MPV (9.4-12.3) fL Immature Gran % (Auto) (0.0-0.4) % Neut % (Auto) (45-73) % Lymph % (Auto) (20-40) % Lagrange % (Auto) (2-11) % Eos % (Auto) (0-4) % Baso % (Auto) (0-2) % Lymph # (Auto) (1.2-4.9) X10*3/uL [place] # (Auto) (0.1-1.2) X10*3/uL Eos # (Auto) (0.0-0.4) X10*3/uL Baso # (Auto) (0.0-0.2) X10*3/uL Abs Immat Gran (auto) (0.00-0.03) X10*3/uL Absolute Neuts (auto) (2.0-8.3) x10*3/uL Absolute Nucleated RBC (0.0-0.012) X10*3/uL Nucleated RBC % (auto) (0.0-0.2) /100WBC Sodium (135-145) mmol/L Potassium (3.3-5.1) mmol/L Chloride (96-108) mmol/L Carbon Dioxide (22-29) mmol/L Anion Gap (12-20) BUN (9-16) mg/dL Creatinine (0.5-1.4) mg/dL Estim Creat Clear Calc Estimated GFR Random Glucose (60-115) mg/dL Calcium (8.4-10.2) mg/dL Total Bilirubin (0.0-1.0) mg/dL AST (5-31) U/L ALT (0-31) U/L Alkaline Phosphatase (39-117) U/L Troponin I High Sens (<3.5-17.0) ng/L Total Protein (6.5-8.0) g/dL Albumin (3.5-5.0) g/dL TSH (0.32-4.0) uIU/mL Urine Color Yellow Urine Appearance Clear Urine pH 5.5 (5.0-9.0) Ur Specific Duncan 1.010 (1.005-1.025) Urine Protein Trace (Neg-Trace) mg/dL Urine Glucose (UA) Negative (Negative) mg/dL Urine Ketones Trace (Negative) mg/dL Urine Blood Negative (Negative) Urine Nitrite Negative (Negative) Ur Leukocyte Esterase Moderate (2+) H (Negative) Urine RBC 3-5 H (0-2) /HPF Urine WBC 21-50 H (0-5) /HPF Ur Squamous Epith Cells 3-5 (0-2) /HPF Urine Bacteria None Seen (None Seen) Hyaline Casts 0-2 (0-2) /LPF Independent Interpretation I performed an independent interpretation of an: EKG Interpretation: Sinus tachycardia heart rate 119 beats per minute incomplete right bundle branch block no acute ST T wave changes no acute ischemia Discharge Plan Discharge Clinical Impression: Heart palpitations, Anxiety Patient Disposition: Home, Self-Care Instructions: Heart Palpitations (ED), Anxiety (ED) Additional Instructions: Drink plenty of fluid Take medication for anxiety as prescribed Avoid caffeine drinks Follow-up with PCP if not better for further management including Holter monitoring Medicine for constipation as prescribed Prescriptions: New docusate sodium [Colace] 100 mg capsule 200 mg PO DAILY PRN (Reason: constipation) Qty: 60 0RF No Action acetaminophen 325 mg tablet 650 mg PO BID-TID PRN (Reason: fever or pain) Qty: 180 5RF (DME) blood-glucose meter Misc See Rx Instructions .ROUTE .MEDSUPPLY Qty: 1 0RF Rx Instructions: Accu-Chek Genie Plus (DME) blood-glucose meter [Accu-Chek Genie Plus Meter] Misc See Rx Instructions .ROUTE .MEDSUPPLY Qty: 1 0RF Rx Instructions: TEST 2 TIMES DAILY (DME) Accu-Chek Genie Plus test strp Strip See Rx Instructions .ROUTE .MEDSUPPLY Qty: 100 12RF Rx Instructions: As directed-In vitro twice a day ibuprofen 600 mg tablet 600 mg PO Q6-8H PRN (Reason: pain) 30 Days Qty: 90 0RF hydroxyzine HCl 50 mg tablet 50 mg PO BID PRN (Reason: anxiety) 30 Days Qty: 60 3RF lancets [Accu-Chek Softclix Lancets] Misc 1 ea topical BID Qty: 100 5RF (DME) Accu-Chek Guide test strips Strip See Rx Instructions .ROUTE .MEDSUPPLY Qty: 50 3RF Rx Instructions: As directed- in vitro twice a day. atorvastatin 40 mg tablet 40 mg PO DAILY 90 Days Qty: 90 1RF metformin 500 mg tablet 500 mg PO BID Qty: 180 1RF losartan 25 mg tablet 25 mg PO DAILY Qty: 90 3RF cholecalciferol (vitamin D3) [Vitamin D3] 50 mcg (2,000 unit) capsule 50 mcg PO DAILY Qty: 90 3RF (DME) Accu-Chek Genie Plus test strp Strip See Rx Instructions Not Applicable BID Qty: 10 Rx Instructions: As directed multivitamin [One Daily Multivitamin] Tablet 1 tab PO DAILY
[2022-10-30 02:07] LABS: MANUAL DIFF FLAG NO
[2022-10-30 02:08] LABS: Basophils Percent Auto 0.2 % (0-2); Eosinophils Percent Auto 0.2 % (0-4); Hematocrit 36.7 % (37.0-47.0); Hemoglobin 12.3 g/dl (12.0-16.0); Imm Gran Abs Auto 0.04 X10*3/uL (0.00-0.03); Imm Gran Pct Auto 0.4 % (0.0-0.4); Lymphocytes Absolute Auto 1.2 X10*3/uL (1.2-4.9); Lymphocytes Percent Auto 10.7 % (20-40); Mean Corpuscular HGB Conc 33.5 g/dl (31.0-35.0); Mean Corpuscular Hemoglobin 29.5 pg (27.0-33.0); Mean Platelet Volume 9.3 fL (9.4-12.3); Monocytes Absolute Auto 0.8 X10*3/uL (0.1-1.2); Monocytes Percent Auto 7.2 % (2-11); Neutrophils Absolute Auto 8.9 x10*3/uL (2.0-8.3); Neutrophils Percent Auto 81.3 % (45-73); Platelet Count 258 X10*3/uL (160-400); Red Blood Count 4.17 X10*6/uL (4.20-5.50); Red Cell Distribution Width 13.1 % (11.0-16.0)
[2022-10-30 02:16] LABS: Appearance Urine Clear; Color Urine Yellow; Glucose Urine UA Negative (Negative); Leukocyte Esterase Urine Moderate (2+) (Negative); Nitrite Urine Negative (Negative); PH 5.5 (5.0-9.0); UMIC TRIGGER UACC YES; Urine Blood Negative (Negative); Urine Ketones Trace mg/dL (Negative); Urine Protein Trace mg/dL (Neg-Trace)
[2022-10-30] MEDS: Milk of Magnesia 30 ML ORAL.SUSP PO (02:30)
[2022-10-30 02:35] LABS: Troponin-I High Sensitivity 7.1 ng/L (<3.5-17.0)
[2022-10-30 02:36] VITALS: BP 135/60; PULSE 100; RESP 12; TEMP 36.6; O2SAT 98
[2022-10-30 02:38] LABS: Alanine Aminotransferase 19 U/L (0-31); Albumin Level 3.9 g/dL (3.5-5.0); Alkaline Phosphatase 77 U/L (39-117); Anion Gap 14 (12-20); Aspartate Amino Transferase 22 U/L (5-31); Bilirubin Total 0.4 mg/dL (0.0-1.0); Blood Urea Nitrogen 12 mg/dL (9-16); Calcium 9.9 mg/dL (8.4-10.2); Carbon Dioxide 24 mmol/L (22-29); Chloride 101 mmol/L (96-108); Creatinine Clr Calc Pharmacy 47.8; Estimated Glomerular Filt Rate > 60; Glucose Random 129 mg/dL (60-115); Potassium 3.5 mmol/L (3.3-5.1); Sodium 135 mmol/L (135-145); Total Protein 7.3 g/dL (6.5-8.0)
[2022-10-30 02:48] LABS: Bacteria Urine None Seen (None Seen); Hyaline Casts Urine 0-2 /LPF (0-2); UACC Culture Trigger YES; WBC Urine 21-50 /HPF (0-5)
[2022-10-30 02:52] LABS: Thyroid Stimulating Hormone 3.58 uIU/mL (0.32-4.0)
--- NOTE | 2022-10-30 03:26 | PC.NURSE ---
Pt reports constipation, given MOM, up to BR at this time.
== END 2022-10-30 03:47 | disposition home or self-care (01) ==
PROVIDERS: Emergency Provider Internal Medicine; PCP Internal Medicine
DX: R00.2 Palpitations (principal); F41.9 Anxiety disorder, unspecified; E11.9 Type 2 diabetes mellitus without complications; I10 Essential (primary) hypertension; E78.00 Pure hypercholesterolemia, unspecified; Z79.899 Other long term (current) drug therapy; Z79.84 Long term (current) use of oral hypoglycemic drugs
CPT/HCPCS: 36415; 80053; 81001; 84443; 84484; 85025; 87086; 93005; 99283; 99284

== ENCOUNTER 2022-12-03 12:06 | Outpatient (AMB) | payer OTHER, SELFPAY ==
[2022-12-03 12:34] VITALS: BP 126/72; PULSE 89; O2SAT 99; BMI 22.5
--- NOTE | 2022-12-03 12:34 | MHC.PC.OV ---
Vital Signs 12/03/22 12:34 Height 5 ft Weight 115 lb 2 oz BMI 22.5 BP 126/72 Blood Pressure Location Lt brachial Position Sitting Pulse 89 Pulse Source Pulse Oximeter Pulse Oximetry (%) 99 Oxygen Delivery Method Room Air Intake Visit Reasons: [facility] [place] Panic attack Patent Leather Sorter Required: No Accompanied by: Self / Same As Patient Allergies Penicillins Allergy (Mild, Verified 12/03/22 13:16) NUMBNESS Medication List - Last Reconciled 12/03/22 by Maxx Prieto MD [Wipes As directed] acetaminophen 650 mg (2 x 325 mg) PO BID-TID PRN atorvastatin 40 mg PO DAILY 90 days blood pressure test kit-large As directed blood sugar diagnostic As directed blood sugar diagnostic (Accu-Chek Genie Plus test strips) As directed-In vitro twice a day blood sugar diagnostic (Accu-Chek Guide test strips) As directed- in vitro twice a day. blood-glucose meter Accu-Chek Genie Plus blood-glucose meter (Accu-Chek Genie Plus Meter) TEST 2 TIMES DAILY cholecalciferol (vitamin D3) (Vitamin D3) 50 mcg PO DAILY docusate sodium (Colace) 200 mg (2 x 100 mg) PO DAILY PRN hydroxyzine HCl 50 mg PO BID PRN 30 days ibuprofen 600 mg PO Q6-8H PRN 30 days lancets (Accu-Chek Softclix Lancets) 1 ea topical BID [Long Panty Liners As directed] losartan 25 mg PO DAILY metformin 500 mg PO BID multivitamin (One Daily Multivitamin tablet) 1 tab PO DAILY Tobacco use date assessed: 12/03/22 Fall risk assessment: No Falls in past year Last assessed Fall Risk: 12/03/22 Dental Screening Dental Screen Date: 12/03/22 Did you have a dental visit in the last 12 months?: No Did you have a dental problem in the last 6 months where you did not have access to dental care?: No Was dental information given to patient?: No HPI [facility] [place] Panic attack HPI Details Patient comes in today for her HDF follow up visit States that she went to the ER about a month ago (10/28/22) with multiple symptoms but primarily because of dizziness, palpitations and chest pains that were determined to be mostly due to anxiety / panic attack States that her work ups done in the ER (labs and EKG) were mostly normal/negative and she was sent home with instructions to continue on all of her current Rx and to follow up with her PCP JHONY States that she still has some anxiety but has not had any recurrence of her symptoms and panic attack since - feels that her anxiety is now much better controlled than it was about a month ago She denies any headaches or dizziness Denies any chest pains lately and no SOB noted No nausea/vomiting, no abdominal pain No change in bowel habits noted [facility] Medical History Varicose veins of bilateral lower extremities with pain Overweight (BMI 25.0-29.9) Depression Anxiety Vitamin B12 deficiency Vitamin D deficiency Osteoarthritis GERD without esophagitis Intermittent palpitations Benign essential hypertension Pure hypercholesterolemia Diabetes mellitus High cholesterol Hypertension Diabetes Fall Arthritis Hypertension Diabetes mellitus, type 2 Trigger ring finger of right hand Trigger finger Surgical History History of colonoscopy History of uterine prolapse Family History Father Hypertension Mother Stroke Son Hypertension Son Hypertension Sister No problems noted. Brother No problems noted. Social History Household Members: None Housing: Apartment Alcohol intake: never Patient Tobacco Use Status: Never used Tobacco e-Cigarette/Vaping Use: Never Used Second Hand Smoke Exposure: No service: No Current occupational status: disabled Cognitive needs: No Hearing needs: No Vision needs: Yes Questionnaire PHQ-9 Over the last 2 weeks, how often have you been bothered by any of the following problems? 1. Little interest or pleasure in doing things: not at all 2. Feeling down, depressed, or hopeless: not at all 3. Trouble falling or staying asleep, or sleeping too much: not at all 4. Feeling tired or having little energy: not at all 5. Poor appetite or overeating: not at all 6. Feeling bad about yourself - or that you are a failure or have let yourself or your family down: not at all 7. Trouble concentrating on things, such as reading the newspaper or watching television: not at all 8. Moving or speaking so slowly that other people could have noticed. Or the opposite - being so fidgety or restless that you have been moving around a lot more than usual: not at all 9. Thoughts that you would be better off or of hurting yourself in some way: not at all Total score: 0 Depression Screening Interpretation: Negative Depression Screening Done: Yes 00228 - PHQ-9 Billing: Yes Source: Developed by Drs. Krzysztof Phelps, Ketty Wong, Florentino Aiken and colleagues, with an educational kat from [employer]. Thrive Questionnaire Date Thrive assessed: 12/03/22 I am a: Patient What is your living situation today?: I have a steady place to live Within the past 12 months, did the food you bought not last and you didn't have the money to get more?: Never true Within the past 12 months, did you worry whether your food would run out before you got money to buy more?: Never true Do you have trouble paying for medicines?: No Do you have trouble getting transportation to medical appointments?: No Do you have trouble paying your heating and electricity bill?: No Do you have trouble taking care of your child, family member or friend?: No Do you have trouble with day-to-day activities such as bathing, preparing meals, shopping, managing finances, etc.?: No Are you currently unemployed and looking for a job?: No Are you interested in more education?: No Please select the resources that you would like help with: None Currently or been in a relationship where the following occur: no concerns reported AUDIT C Alcohol Use Questionnaire (AUDIT-C) 1. How often do you have a drink containing alcohol?: Never 3. How often do you have six or more drinks on one occasion?: Never Total Score: 0 Score Reviewed/Action Taken: Yes TALI-7 AMB Questionnaire TALI-7 Date TALI - 7 assessed: 12/03/22 Feeling nervous, anxious, or on edge: 0 = Not at all Not being able to stop or control worryin = Not at all Worrying too much about different things: 0 = Not at all Trouble relaxin = Not at all Being so restless that it is hard to sit still: 0 = Not at all Becoming easily annoyed or irritable: 0 = Not at all Feeling afraid as if something awful might happen: 0 = Not at all Total TALI-7 score (0-4 normal; 5-9 mild; 10-14 moderate; 15-21 severe): 0 Source: Developed by Drs. Krzysztof Phelps, Ketty Wong, Florentino Aiken and colleagues, with an educational kat from [employer]. Review of Systems Const Denies fatigue, Denies fever(s) and Denies headache(s) ENT Denies dysphagia, Denies dizziness, Denies otalgia, Denies headache(s), Reports hearing loss (now has hearing aids), Denies odynophagia and Denies sore throat Card Denies chest pain, Denies palpitations and Denies dyspnea Resp Denies cough and Denies dyspnea GI Denies abdominal pain, Denies constipation, Denies dysphagia, Denies heartburn, Denies diarrhea, Denies nausea, Denies odynophagia and Denies vomiting Denies difficulty voiding, Denies nocturia and Denies dysuria Musc Reports arthralgias (in the right hip, on and off; base of right thumb ) Skin/Breast Denies rash Neuro Denies dizziness and Denies headache(s) Psych Reports anxiety (better controlled) Endo Denies fatigue and Denies palpitations Physical exam (Primary Care) Vital Signs: Last Vital Signs Pulse 89 12/03/22 12:34 BP 126/72 12/03/22 12:34 Pulse Ox 99 12/03/22 12:34 Oxygen Delivery Method Room Air 12/03/22 12:34 BMI result Body Mass Index 22.5 Tobacco/Smoking Status: Tobacco use Status Tobacco use date assessed 12/03/22 12/03/22 12:43 Patient Tobacco Use Status Never used Tobacco 12/03/22 12:43 e-Cigarette/Vaping Use Never Used 12/03/22 12:43 PHQ-9: PHQ-9 Score PHQ-9: Total score 0 12/03/22 13:21 Depression Screening Interpretation: Negative Thrive Assessment: Date of Thrive Assessment Date Thrive assessed 12/03/22 12/03/22 12:43 Currently or been in a relationship where the following occur: no concerns reported Const General: no acute distress and alert HENMT Ears: TM's normal bilaterally and EAC's normal Throat: Yes posterior oropharynx normal and Yes tonsils normal (no TP congestion noted) Neck Neck: Yes no lymphadenopathy and Yes supple Resp Auscultation: clear to auscultation bilaterally, no rales and no wheezes Cardio Rate: regular rate Rhythm: regular rhythm Heart sounds: no murmurs GI Palpation (GI): Soft to palpation and nontender Auscultation: normal bowel sounds Extrem Other: (+) scattered prominent varicose veins on both lower extremities that are tender on palpation General: Yes no clubbing, cyanosis or edema Right upper extremity: Extremity exam: right hand Details: tenderness Location: of the thumb Location: at the MCP joint and no swelling Assessment and Plan Assessment & Plan (1) Intermittent palpitations: Code(s): R00.2 - Palpitations Plan: Patient had again what appeared to have been an anxiety or panic attack last month, with palpitations, but states that her symptoms have subsided and have not bothered her since Holter monitor done a couple of years ago showed sinus rhythm with occasional PACs; echocardiogram done back in July 2017 came out normal Patient states that she rarely experiences any palpitations nowadays although she had the abovementioned episode last month Was taking Metoprolol ER 25 mg QD previously for rate control but patient self-discontinued her Rx several months ago as she did not feel that she needed to continue on it - states that she has not had any recurrence of symptoms since stopping Metoprolol ER until last month Is again advised that we may need to reevaluate her and consider starting her back on low dose Metoprolol if she keeps getting these episodes or symptoms again going forward (2) Anxiety: Code(s): F41.9 - Anxiety disorder, unspecified Plan: Continue Hydroxyzine 50 mg Q HS PRN and Buspirone 10 mg BID (3) Depression: Code(s): F32.9 - Major depressive disorder, single episode, unspecified Qualifiers: Active/Remission status: currently active Depression Type: major depressive disorder Major depression episode severity: unspecified Major depression recurrence: recurrent Qualified Code(s): F33.9 - Major depressive disorder, recurrent, unspecified Plan: Continue Fluoxetine 10 mg QD Follow-up with Psychiatry as scheduled Plan Follow up as scheduled in January 2023 Coding Level of Care Code Est Pt Level 3 (93700) Diagnoses Intermittent palpitations R00.2 Anxiety F41.9 Episode of recurrent major depressive disorder, unspecified depression episode severity F33.9 Active/Remission status: currently active Depression Type: major depressive disorder Major depression episode severity: unspecified Major depression recurrence: recurrent
== END 2022-12-03 13:17 | disposition home or self-care (01) ==
PROVIDERS: PCP Internal Medicine; Visit Provider Internal Medicine
DX: R00.2 Palpitations (principal); F41.9 Anxiety disorder, unspecified; F33.9 Major depressive disorder, recurrent, unspecified
CPT/HCPCS: 99213

== ENCOUNTER 2023-01-06 10:00 | Outpatient (REF) | payer OTHER, SELFPAY ==
--- NOTE | ~2023-01-06 | XR_ITS ---
EXAMINATION: XR WRIST, RIGHT CLINICAL INFORMATION: Pain in unspecified wrist COMPARISON: 06/11/2022 TECHNIQUE: Three views of the right wrist. FINDINGS: The bones are diffusely demineralized. Moderate degenerative changes in the first carpometacarpal joint with joint space narrowing and hypertrophic change. Degenerative changes in the imaged MCP joints. XR/XR wrist RT min 3V IMPRESSION: Moderate degenerative changes. No displaced fracture. Recommend follow-up imaging in 10-14 days if fracture is suspected.
== END 2023-01-06 10:01 | disposition home or self-care (01) ==
LOC: HO.HOSX 10:00
PROVIDERS: Visit Provider Physician Assistant
DX: M65.4 Radial styloid tenosynovitis [de Quervain] (principal)
CPT/HCPCS: 73110; 99212

== ENCOUNTER 2023-01-06 12:27 | Outpatient (AMB) | payer OTHER, SELFPAY ==
[2023-01-06 12:30] VITALS: BMI 22.5
--- NOTE | 2023-01-06 12:30 | A.OFFVIS_ITS ---
Intake Vital Signs 01/06/23 12:30 Height 5 ft Weight 115 lb BMI 22.5 Intake Visit Reasons: New prob - right wrist pain Intake Note: Sophie is a 77 year old right hand dominant female who presents today for a evaluation for her right hand pain. Patient reports having several years with a lot of pain. She states her pain is on the dorsal aspect of the wrist and on the base of the thumb. No hx of injections. Allergies Penicillins Allergy (Mild, Verified 01/06/23 12:31) NUMBNESS HPI New prob - right wrist pain HPI Details 77-year-old female, who is Turkish speak ing, presents in the office today for an evaluation of bilateral hand pain. The patient reports having several years of severe pain. She states the pain is on the dorsal aspect of the bilateral wrist and in the base of her thumb. Patient has no prior history of cortisone injections. [facility] Medical History Varicose veins of bilateral lower extremities with pain Overweight (BMI 25.0-29.9) Depression Anxiety Vitamin B12 deficiency Vitamin D deficiency Osteoarthritis GERD without esophagitis Intermittent palpitations Benign essential hypertension Pure hypercholesterolemia Diabetes mellitus High cholesterol Hypertension Diabetes Fall Arthritis Hypertension Diabetes mellitus, type 2 Trigger ring finger of right hand Trigger finger Surgical History History of colonoscopy History of uterine prolapse Family History Father Hypertension Mother Stroke Son Hypertension Son Hypertension Sister No problems noted. Brother No problems noted. Social History Household Members: None Housing: Apartment Alcohol intake: never Patient Tobacco Use Status: Never used Tobacco e-Cigarette/Vaping Use: Never Used Second Hand Smoke Exposure: No service: No Current occupational status: disabled Cognitive needs: No Hearing needs: No Vision needs: Yes Review of Systems Const All systems reviewed & are unremarkable except as noted in HPI and below Physical Exam Vital Signs: BMI result Body Mass Index 22.5 Const General: cooperative and no acute distress Orientation/consciousness: patient oriented x3 Resp Effort & Inspection: normal respiratory effort and able to speak in complete sentences Cardio Peripheral pulses: Peripheral pulses 2+ throughout Skin General skin exam: no rashes or lesions noted Neuro General: patient oriented x3 Extrem Other: Right hand: Normal to inspection. No ecchymosis, erythema, or edema. Tenderness to palpation over the dorsal compartment. Able to perform full finger flexion, extension, abduction, adduction, finger cross, okay sign, and thumbs up without deficit. Able to make a closed fist. Positive Liseth. Sensation intact. Capillary refill is brisk. Radial pulse intact. Assessment & Plan Assessment & Plan (1) De Quervain's tenosynovitis, right: Code(s): M65.4 - Radial styloid tenosynovitis [de Quervain] Plan Ms. Yuen is a 77-year-old female, who is Turkish speaking, presents in the office today for an evaluation of bilateral hand pain. The patient reports having several years of severe pain. She states the pain is on the dorsal aspect of the bilateral wrist and in the base of her thumb. Patient has no prior history of cortisone injections. The patient was given a comfort cool brace, off the shelf, while in the office today. She was educated on activity modifications like pinch activities. She will be referred to occupational therapy. If her pain persist after attending occupational therapy then she will call the office and we will consider moving forward with cortisone injection. Follow up will be PRN, or sooner if needed. X-rays of the bilateral hands which were obtained while in the office today and were reviewed by me, Lizzeth Burgos PA-C, revealed no evidence of acute fracture or dislocation. Mild degenerative changes. Orders: Orders OT Evaluation and Treatment Today M65.4 - Radial styloid tenosynovitis [de Quervain] Patient Instructions: Scribed for Lizzeth Burgos PA-C by Matilde Gonzalez medical records coder, on 01/06/2023 at 12:28 pm, EST. Coding Level of Care Code Est Pt Level 4 (39855) Diagnoses De Quervain's tenosynovitis, right M65.4
== END 2023-01-06 13:20 | disposition home or self-care (01) ==
PROVIDERS: PCP Internal Medicine; Visit Provider Physician Assistant
DX: M65.4 Radial styloid tenosynovitis [de Quervain] (principal)
CPT/HCPCS: 99214

== ENCOUNTER 2023-02-12 08:28 | Outpatient (REF) | payer OTHER, SELFPAY ==
[2023-02-12 08:57] LABS: MANUAL DIFF FLAG NO
[2023-02-12 09:05] LABS: Basophils Percent Auto 0.6 % (0-2); Eosinophils Absolute Auto 0.1 X10*3/uL (0.0-0.4); Eosinophils Percent Auto 1.9 % (0-4); Hematocrit 36.3 % (37.0-47.0); Hemoglobin 12.2 g/dl (12.0-16.0); Lymphocytes Absolute Auto 1.9 X10*3/uL (1.2-4.9); Lymphocytes Percent Auto 41.5 % (20-40); Mean Corpuscular HGB Conc 33.6 g/dl (31.0-35.0); Mean Corpuscular Volume 89.4 fL (80.0-98.0); Mean Platelet Volume 9.9 fL (9.4-12.3); Monocytes Absolute Auto 0.3 X10*3/uL (0.1-1.2); Monocytes Percent Auto 7.3 % (2-11); Neutrophils Absolute Auto 2.3 x10*3/uL (2.0-8.3); Neutrophils Percent Auto 48.7 % (45-73); Platelet Count 249 X10*3/uL (160-400); Red Blood Count 4.06 X10*6/uL (4.20-5.50); Red Cell Distribution Width 13.2 % (11.0-16.0); White Blood Count 4.7 X10*3/uL (4.8-10.8)
[2023-02-12 09:26] LABS: Estimated Average Glucose 108 mg/dL; Hemoglobin A1c % 5.4 % (<6.0)
[2023-02-12 09:42] LABS: Alanine Aminotransferase 19 U/L (0-31); Albumin Level 3.9 g/dL (3.5-5.0); Alkaline Phosphatase 68 U/L (39-117); Anion Gap 9 (12-20); Aspartate Amino Transferase 26 U/L (5-31); Bilirubin Total 0.4 mg/dL (0.0-1.0); Blood Urea Nitrogen 14 mg/dL (9-16); Calcium 9.5 mg/dL (8.4-10.2); Carbon Dioxide 29 mmol/L (22-29); Chloride 104 mmol/L (96-108); Cholesterol 146 mg/dL (<200); Estimated Glomerular Filt Rate > 60; Glucose Fasting 91 mg/dL (60-99); HDL Cholesterol 61 mg/dL (>40); LDL Cholesterol Calculated 74 mg/dL (<100); Potassium 4.1 mmol/L (3.3-5.1); Sodium 138 mmol/L (135-145); Triglycerides 58 mg/dL (<150)
[2023-02-12 09:50] LABS: TSH reflex Free T4 3.18 uIU/mL (0.32-4.0); Vitamin D 25-OH Total 48.8 ng/mL (>30)
[2023-02-12 09:56] LABS: Appearance Urine Clear; Color Urine Yellow; Glucose Urine UA Negative (Negative); Leukocyte Esterase Urine Negative (Negative); Nitrite Urine Negative (Negative); Specific Gravity - Urine <= 1.005 (1.005-1.025); Urine Blood Negative (Negative); Urine Ketones Negative (Negative); Urine Protein Negative (Neg-Trace)
[2023-02-12 10:03] LABS: Folate 13.8 ng/mL (> or = 4.0); Vitamin B12 371 pg/mL (200-900)
[2023-02-12 10:50] LABS: Creatinine Urine 30.11 mg/dL; Microalbumin Urine < 5.0 mg/L
== END 2023-02-12 08:29 | disposition home or self-care (01) ==
LOC: HO.LAB 08:28
PROVIDERS: PCP Internal Medicine; Visit Provider Internal Medicine
DX: R30.0 Dysuria (principal); I10 Essential (primary) hypertension; E11.9 Type 2 diabetes mellitus without complications; E55.9 Vitamin D deficiency, unspecified; E78.00 Pure hypercholesterolemia, unspecified; E53.8 Deficiency of other specified B group vitamins
CPT/HCPCS: 36415; 80053; 80061; 81003; 82043; 82306; 82570; 82607; 82746; 83036; 84443; 85025

== ENCOUNTER 2023-02-12 11:28 | Outpatient (AMB) | payer OTHER, SELFPAY ==
[2023-02-12 11:29] VITALS: BP 120/78; PULSE 94; O2SAT 98; BMI 23.1
--- NOTE | 2023-02-12 11:29 | MHC.PC.OV ---
Vital Signs 02/12/23 11:29 Height 5 ft Weight 118 lb 6 oz BMI 23.1 BP 120/78 Blood Pressure Location Lt brachial Position Sitting Pulse 94 Pulse Source Pulse Oximeter Pulse Oximetry (%) 98 Oxygen Delivery Method Room Air Intake Visit Reasons: hyperlipidemia, DM, HTN, OA Window Maker Required: No Accompanied by: Self / Same As Patient Allergies Penicillins Allergy (Mild, Verified 02/12/23 12:11) NUMBNESS Medication List - Last Reconciled 02/12/23 by Maxx Prieto MD [Wipes As directed] acetaminophen 650 mg (2 x 325 mg) PO BID-TID PRN atorvastatin 40 mg PO DAILY 90 days blood pressure test kit-large As directed blood sugar diagnostic As directed blood sugar diagnostic (Accu-Chek Genie Plus test strips) As directed-In vitro twice a day blood sugar diagnostic (Accu-Chek Guide test strips) As directed- in vitro twice a day. blood-glucose meter Accu-Chek Genie Plus blood-glucose meter (Accu-Chek Genie Plus Meter) TEST 2 TIMES DAILY cholecalciferol (vitamin D3) (Vitamin D3) 50 mcg PO DAILY docusate sodium (Colace) 200 mg (2 x 100 mg) PO DAILY PRN hydroxyzine HCl 50 mg PO BID PRN 30 days ibuprofen 600 mg PO Q6-8H PRN 30 days lancets (Accu-Chek Softclix Lancets) 1 ea topical BID [Long Panty Liners As directed] losartan 25 mg PO DAILY metformin 500 mg PO BID multivitamin (One Daily Multivitamin tablet) 1 tab PO DAILY Tobacco use date assessed: 02/12/23 Fall risk assessment: No Falls in past year Last assessed Fall Risk: 02/12/23 Dental Screening Dental Screen Date: 02/12/23 Did you have a dental visit in the last 12 months?: No Did you have a dental problem in the last 6 months where you did not have access to dental care?: No Was dental information given to patient?: Patient has dentist HPI hyperlipidemia, DM, HTN, OA HPI Details Patient comes in today for her follow up visit States that she is still experiencing increased pain over her right wrist, base of the right thumb and over the upper forearm area - was seen by orthopedics last month and recommended that she go see OT States that she just scheduled this and will be starting therapy soon Also reports (+) left shoulder pain lately, mostly when she raises her left arm Will be seeing orthopedics again next Thursday for follow up She denies any headaches or dizziness Denies any chest pains, no SOB No nausea/vomiting, no abdominal pain No change in bowel habits noted Had her follow up labs done earlier this morning - to discuss her results [facility] Medical History Varicose veins of bilateral lower extremities with pain Overweight (BMI 25.0-29.9) Depression Anxiety Vitamin B12 deficiency Vitamin D deficiency Osteoarthritis GERD without esophagitis Intermittent palpitations Benign essential hypertension Pure hypercholesterolemia Diabetes mellitus High cholesterol Hypertension Diabetes Fall Arthritis Hypertension Diabetes mellitus, type 2 Trigger ring finger of right hand Trigger finger Surgical History History of colonoscopy History of uterine prolapse Family History Father Hypertension Mother Stroke Son Hypertension Son Hypertension Sister No problems noted. Brother No problems noted. Social History Household Members: None Housing: Apartment Alcohol intake: never Patient Tobacco Use Status: Never used Tobacco e-Cigarette/Vaping Use: Never Used Second Hand Smoke Exposure: No service: No Current occupational status: disabled Cognitive needs: No Hearing needs: No Vision needs: Yes Questionnaire PHQ-9 Over the last 2 weeks, how often have you been bothered by any of the following problems? 1. Little interest or pleasure in doing things: not at all 2. Feeling down, depressed, or hopeless: not at all 3. Trouble falling or staying asleep, or sleeping too much: not at all 4. Feeling tired or having little energy: not at all 5. Poor appetite or overeating: not at all 6. Feeling bad about yourself - or that you are a failure or have let yourself or your family down: not at all 7. Trouble concentrating on things, such as reading the newspaper or watching television: not at all 8. Moving or speaking so slowly that other people could have noticed. Or the opposite - being so fidgety or restless that you have been moving around a lot more than usual: not at all 9. Thoughts that you would be better off or of hurting yourself in some way: not at all Total score: 0 Depression Screening Interpretation: Negative Depression Screening Done: Yes 66973 - PHQ-9 Billing: Yes Source: Developed by Drs. Krzysztof Phelps, Ketty Wong, Florentino Aiken and colleagues, with an educational kat from [employer]. Thrive Questionnaire Date Thrive assessed: 02/12/23 I am a: Patient What is your living situation today?: I have a steady place to live Within the past 12 months, did the food you bought not last and you didn't have the money to get more?: Never true Within the past 12 months, did you worry whether your food would run out before you got money to buy more?: Never true Do you have trouble paying for medicines?: No Do you have trouble getting transportation to medical appointments?: No Do you have trouble paying your heating and electricity bill?: No Do you have trouble taking care of your child, family member or friend?: No Do you have trouble with day-to-day activities such as bathing, preparing meals, shopping, managing finances, etc.?: No Are you currently unemployed and looking for a job?: No Are you interested in more education?: No Please select the resources that you would like help with: None Currently or been in a relationship where the following occur: no concerns reported AUDIT C Alcohol Use Questionnaire (AUDIT-C) 1. How often do you have a drink containing alcohol?: Never 3. How often do you have six or more drinks on one occasion?: Never Total Score: 0 Score Reviewed/Action Taken: Yes TALI-7 AMB Questionnaire TALI-7 Date TALI - 7 assessed: 02/12/23 Feeling nervous, anxious, or on edge: 0 = Not at all Not being able to stop or control worryin = Not at all Worrying too much about different things: 0 = Not at all Trouble relaxin = Not at all Being so restless that it is hard to sit still: 0 = Not at all Becoming easily annoyed or irritable: 0 = Not at all Feeling afraid as if something awful might happen: 0 = Not at all Total TALI-7 score (0-4 normal; 5-9 mild; 10-14 moderate; 15-21 severe): 0 Source: Developed by Drs. Krzysztof Phelps, Ketty Wong, Florentino Aiken and colleagues, with an educational kat from [employer]. Review of Systems Const Denies chills, Denies fatigue, Denies fever(s) and Denies headache(s) ENT Denies dysphagia, Denies dizziness, Denies otalgia, Denies headache(s), Reports hearing loss (now has hearing aids), Denies odynophagia and Denies sore throat Card Denies chest pain, Reports palpitations (occurred yesterday, lasting for about 3 minutes; no recurrence since) and Denies dyspnea Resp Denies cough and Denies dyspnea GI Denies abdominal pain, Denies constipation, Denies dysphagia, Denies heartburn, Denies diarrhea, Denies nausea, Denies odynophagia and Denies vomiting Denies difficulty voiding, Denies nocturia, Denies dysuria and Denies urinary urgency Musc Reports arthralgias (in the right hip, on and off; base of right thumb/wrist; left shoulder) and Denies joint swelling Skin/Breast Denies rash Neuro Denies dizziness and Denies headache(s) Endo Denies fatigue and Reports palpitations (occurred yesterday, lasting for about 3 minutes; no recurrence since) Physical exam (Primary Care) Vital Signs: Last Vital Signs Pulse 94 02/12/23 11:29 BP 120/78 02/12/23 11:29 Pulse Ox 98 02/12/23 11:29 Oxygen Delivery Method Room Air 02/12/23 11:29 BMI result Body Mass Index 23.1 Tobacco/Smoking Status: Tobacco use Status Tobacco use date assessed 02/12/23 12 11:31 Patient Tobacco Use Status Never used Tobacco 02/12/23 11:31 e-Cigarette/Vaping Use Never Used 02/12/23 11:31 PHQ-9: PHQ-9 Score PHQ-9: Total score 0 02/12/23 12:14 Depression Screening Interpretation: Negative Thrive Assessment: Date of Thrive Assessment Date Thrive assessed 02/12/23 12 11:31 Currently or been in a relationship where the following occur: no concerns reported Const General: no acute distress and alert HENMT Ears: TM's normal bilaterally and EAC's normal Throat: Yes posterior oropharynx normal and Yes tonsils normal (no TP congestion noted) Neck Neck: Yes no lymphadenopathy and Yes supple Resp Auscultation: clear to auscultation bilaterally, no rales and no wheezes Cardio Rate: regular rate Rhythm: regular rhythm Heart sounds: no murmurs GI Palpation (GI): Soft to palpation and nontender Auscultation: normal bowel sounds Skin Rashes: no rashes Extrem Other: (+) scattered prominent varicose veins on both lower extremities that are tender on palpation General: Yes no clubbing, cyanosis or edema Right upper extremity: elbow/forearm Details: tenderness (over the muscles on the radial side of the forearm), wrist Details: tenderness; no swelling and Extremity exam: right hand Details: tenderness Location: of the thumb Location: at the MCP joint and no swelling Results Reviewed Results Reviewed: Laboratory Tests 02/12/23 08:55 WBC 4.7 L Hgb 12.2 Hct 36.3 L Plt Count 249 Sodium 138 Potassium 4.1 Creatinine 0.70 Estimated GFR > 60 Fasting Glucose 91 Hemoglobin A1c % 5.4 Calcium 9.5 AST 26 ALT 19 Albumin 3.9 Triglycerides 58 Cholesterol 146 LDL Cholesterol, Calc 74 HDL Cholesterol 61 Vitamin B12 371 25-OH Vitamin D Total 48.8 TSH 3.18 Ur Specific [place] <= 1.005 Urine Protein Negative Urine Glucose (UA) Negative Urine Blood Negative Assessment and Plan Assessment & Plan (1) Pure hypercholesterolemia: Code(s): E78.00 - Pure hypercholesterolemia, unspecified Plan: Results of her labs done earlier this morning reviewed and discussed with patient Reinforced low cholesterol diet Continue Atorvastatin 40 mg QD Will recheck her labs and fasting lipids in 4 months for follow up (2) Diabetes mellitus: Code(s): E11.9 - Type 2 diabetes mellitus without complications Qualifiers: Diabetes mellitus complication status: without complication Diabetes mellitus fdc insulin use: without longshore equipment 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 use Diabetes mellitus type: type 2 Qualified Code(s): E11.9 - Type 2 diabetes mellitus without complications Plan: HgbA1c was at 5.4% on her labs done this morning (was at 5.6% a few months ago) - goal is <7.0% Reinforced diabetic diet Continue Metformin 500 mg BID (3) Benign essential hypertension: Code(s): I10 - Essential (primary) hypertension Plan: Reinforced low sodium diet - goal is systolic BP of at least 130 to 140 mm or less Continue Losartan 25 mg QD (4) Intermittent palpitations: Code(s): R00.2 - Palpitations Plan: Holter monitor done a couple of years ago showed sinus rhythm with occasional PACs; echocardiogram done back in July 2017 came out normal Symptoms have since resolved; patient states that she rarely experiences any palpitations now although she reports experiencing an episode yesterday for about 3 minutes Was taking Metoprolol ER 25 mg QD previously for rate control but patient self-discontinued her Rx several months ago as she did not feel that she needed to continue on it - states that she has not had any recurrence of symptoms since stopping Metoprolol ER until yesterday Is advised to call right away if this occurs again - may need to reevaluate her and consider starting her back on low dose Metoprolol then (5) GERD without esophagitis: Code(s): K21.9 - Gastro-esophageal reflux disease without esophagitis Plan: Dietary restrictions reinforced (6) Osteoarthritis: Code(s): M19.90 - Unspecified osteoarthritis, unspecified site Qualifiers: Osteoarthritis location: unspecified site Osteoarthritis type: primary Qualified Code(s): M19.91 - Primary osteoarthritis, unspecified site Plan: Continue Acetaminophen 325 mg 2 tablets 2 to 3 times a day as needed for joint pain Her left knee pain has improved a lot with cortisone injection and physical therapy X-rays of the right hip done a few months ago revealed (+) mild OA changes; states that her right hip pain has subsided a lot since Have recommended to go to physical therapy if her hip pain flares up again; patient will call for referral if needed Follow-up with rheumatology and orthopedics as scheduled (7) Pain of right thumb: Code(s): M79.644 - Pain in right finger(s) Plan: X-rays of the right hand done in May 2022 revealed (+) mild degenerative changes of the hands Follow up with orthopedics as scheduled (8) Vitamin D deficiency: Code(s): E55.9 - Vitamin D deficiency, unspecified Plan: Corrected - continue Vitamin D3 1000 units QD (9) Vitamin B12 deficiency: Code(s): E53.8 - Deficiency of other specified B group vitamins Plan: Corrected - continue Vitamin B12 tablets 1000 mcg QD (10) Varicose veins of bilateral lower extremities with pain: Code(s): I83.813 - Varicose veins of bilateral lower extremities with pain Plan: S/P EVLT of the left lower extremity with (+) symptomatic improvement Follow up with Dr. Ricardo Yip for vascular surgery management as scheduled (11) Anxiety: Code(s): F41.9 - Anxiety disorder, unspecified Plan: Continue Hydroxyzine 50 mg Q HS PRN and Buspirone 10 mg BID (12) Depression: Code(s): F32.9 - Major depressive disorder, single episode, unspecified Qualifiers: Active/Remission status: currently active Depression Type: major depressive disorder Major depression episode severity: unspecified Major depression recurrence: recurrent Qualified Code(s): F33.9 - Major depressive disorder, recurrent, unspecified Plan: Continue Fluoxetine 10 mg QD Follow-up with Psychiatry as scheduled Plan Follow up in 4 months Orders: Orders Complete Blood Count Auto Diff 4 Months I10 - Essential (primary) hypertension Lipid Panel 4 Months E78.00 - Pure hypercholesterolemia, unspecified Vitamin B12 and Folate 4 Months E53.8 - Deficiency of other specified B group vitamins Vitamin D 25-OH Total 4 Months E55.9 - Vitamin D deficiency, unspecified Hemoglobin A1c 4 Months E11.9 - Type 2 diabetes mellitus without complications Comprehensive [place]. 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 longshore equipment 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 use Diabetes mellitus type: type 2 Benign essential hypertension I10 Intermittent palpitations R00.2 GERD without esophagitis K21.9 Primary osteoarthritis, unspecified site M19.91 Osteoarthritis location: unspecified site Osteoarthritis type: primary Pain of right thumb M79.644 Vitamin D deficiency E55.9 Vitamin B12 deficiency E53.8 Varicose veins of bilateral lower extremities with pain I83.813 Anxiety F41.9 Episode of recurrent major depressive disorder, unspecified depression episode severity F33.9 Active/Remission status: currently active Depression Type: major depressive disorder Major depression episode severity: unspecified Major depression recurrence: recurrent
== END 2023-02-12 12:27 | disposition home or self-care (01) ==
PROVIDERS: PCP Internal Medicine; Visit Provider Internal Medicine
DX: E11.9 Type 2 diabetes mellitus without complications (principal); F33.9 Major depressive disorder, recurrent, unspecified; E78.00 Pure hypercholesterolemia, unspecified; I10 Essential (primary) hypertension; R00.2 Palpitations; K21.9 Gastro-esophageal reflux disease without esophagitis; M19.91 Primary osteoarthritis, unspecified site; M79.644 Pain in right finger(s); E55.9 Vitamin D deficiency, unspecified; E53.8 Deficiency of other specified B group vitamins; I83.813 Varicose veins of bilateral lower extremities with pain; F41.9 Anxiety disorder, unspecified
CPT/HCPCS: 99214

== ENCOUNTER 2023-04-03 09:00 | Outpatient (RCR) | payer OTHER, SELFPAY ==
--- NOTE | 2023-04-03 12:15 | MHC.OT.DC ---
[address] [phone] F: [phone] Occupational Therapy Discharge Note Patient Name: Sophie Washington Yuen Provider: Lizzeth Burgos Diagnosis: DeQuervains tenosynovitis, right Date of Surgery: Date of Evaluation: 02/16/23 Date of Discharge: Treatments to Date: 11 Cancellations to Date: No Shows to Date: Discharge Status: Improved Function Discharge Summary: Patient reports 2/10 pain on radial side of arm upon arrival. HEP was reviewed and K-tape was applied from thumb to forearm for support. Electronically Signed By: ROSLYN Ruelas/María, CLT Reviewed/agree with student documentation: Therapist: Please Sign and return to therapist, thank you for your referral.
== END 2023-04-21 16:17 | disposition home or self-care (01) ==
LOC: HO.OT 09:00
PROVIDERS: PCP Internal Medicine; Visit Provider Physician Assistant
DX: M65.4 Radial styloid tenosynovitis [de Quervain] (principal)
CPT/HCPCS: 97035; 97110; 97140; 97165

== ENCOUNTER → 2023-04-06 08:15 | Outpatient (BNV) | payer OTHER, SELFPAY | PROVIDERS: PCP Internal Medicine; Visit Provider Radiology Diagnostic Radiology | DX: Z12.31 Encounter for screening mammogram for malignant neoplasm of breast (principal) | CPT/HCPCS: 77063; 77067 ==

== ENCOUNTER 2023-04-06 08:27 | Outpatient (REF) | payer OTHER, SELFPAY ==
--- NOTE | ~2023-04-06 | MM_ITS ---
EXAMINATION: MM SCREENING DIGITAL BREAST TOMOSYNTHESIS, BILATERAL CLINICAL INFORMATION: Screening. Asymptomatic. The patient is status post bilateral breast reduction. COMPARISON: Mammography: This study is compared with prior exams dating back to TECHNIQUE: Digital breast tomosynthesis is performed in both the craniocaudal and mediolateral oblique views along with computer-aided detection (CAD). Synthesized 2D images are generated from the tomosynthesis. FINDINGS: There are scattered areas of fibroglandular density (ACR BI-RADS breast composition Category b). There are no significant masses, abnormal calcifications, or other abnormalities. There are bilateral benign calcifications. Post reduction changes are present. MM/MM tomosynthesis screening BI IMPRESSION: No mammographic evidence of malignancy. ASSESSMENT: BI-RADS BI-RADS 2 - Benign Findings RECOMMENDATION: Routine annual mammography screening. 1 year F/U This examination should not preclude the clinical evaluation of a suspicious palpable abnormality. This patient's information was entered into a reminder system with a target due date for their next mammogram.
== END 2023-04-06 08:28 | disposition home or self-care (01) ==
LOC: HO.MAMMO 08:27
PROVIDERS: PCP Internal Medicine; Visit Provider Internal Medicine
DX: Z12.31 Encounter for screening mammogram for malignant neoplasm of breast (principal)
CPT/HCPCS: 77063; 77067

== ENCOUNTER 2023-04-27 08:26 | Outpatient (REF) | payer OTHER, SELFPAY | END 2023-04-27 08:27 | disposition home or self-care (01) | LOC: HO.XRAY 08:26 | PROVIDERS: PCP Internal Medicine; Visit Provider Internal Medicine | DX: Z13.89 Encounter for screening for other disorder (principal) ==

== ENCOUNTER 2023-04-28 09:23 | Outpatient (REF) | payer OTHER, SELFPAY ==
--- NOTE | ~2023-04-28 | XR_ITS ---
EXAMINATION: XR ELBOW, LEFT XR SHOULDER, LEFT CLINICAL INFORMATION: Pain in left shoulder. Pain in left elbow. COMPARISON: None available. TECHNIQUE: 3 views of the left shoulder. 3 views of the left elbow. FINDINGS: LEFT SHOULDER: Bones are diffusely demineralized, limiting sensitivity for detection of fracture or other pathology. Degenerative changes in the imaged upper thoracic spine. Advanced degenerative changes with hypertrophic change in the acromioclavicular joint. Glenohumeral alignment preserved. Mild hypertrophic change along the inferior aspect of the glenoid. LEFT ELBOW: The bones are diffusely demineralized, limiting the sensitivity for detection of fracture. Small calcifications in the soft tissues superficially, particularly along the dorsal aspect of the elbow. Hypertrophic change along the medial epicondyle greater than the lateral epicondyle. Adjacent soft tissue calcification identified on oblique view may possibly correspond to superficial soft tissue calcification seen dorsally on the lateral view. XR/XR elbow LT min 3V IMPRESSION: 1. Advanced degenerative changes left acromioclavicular joint. 2. Mild degenerative changes left glenohumeral joint. 3. Hypertrophic change along the medial greater than lateral epicondyles. 4. Small calcifications in the soft tissues superficially, particularly along the dorsal aspect of the elbow. Additional imaging with CT scan should be considered for further evaluation if there is clinical concern for fracture or other pathology.
--- NOTE | ~2023-04-28 | XR_ITS ---
EXAMINATION: XR ELBOW, LEFT XR SHOULDER, LEFT CLINICAL INFORMATION: Pain in left shoulder. Pain in left elbow. COMPARISON: None available. TECHNIQUE: 3 views of the left shoulder. 3 views of the left elbow. FINDINGS: LEFT SHOULDER: Bones are diffusely demineralized, limiting sensitivity for detection of fracture or other pathology. Degenerative changes in the imaged upper thoracic spine. Advanced degenerative changes with hypertrophic change in the acromioclavicular joint. Glenohumeral alignment preserved. Mild hypertrophic change along the inferior aspect of the glenoid. LEFT ELBOW: The bones are diffusely demineralized, limiting the sensitivity for detection of fracture. Small calcifications in the soft tissues superficially, particularly along the dorsal aspect of the elbow. Hypertrophic change along the medial epicondyle greater than the lateral epicondyle. Adjacent soft tissue calcification identified on oblique view may possibly correspond to superficial soft tissue calcification seen dorsally on the lateral view. XR/XR shoulder LT min 2V IMPRESSION: 1. Advanced degenerative changes left acromioclavicular joint. 2. Mild degenerative changes left glenohumeral joint. 3. Hypertrophic change along the medial greater than lateral epicondyles. 4. Small calcifications in the soft tissues superficially, particularly along the dorsal aspect of the elbow. Additional imaging with CT scan should be considered for further evaluation if there is clinical concern for fracture or other pathology.
== END 2023-04-28 09:24 | disposition home or self-care (01) ==
LOC: HO.XRAY 09:23
PROVIDERS: PCP Internal Medicine; Visit Provider Internal Medicine
DX: M25.522 Pain in left elbow (principal); M25.512 Pain in left shoulder
CPT/HCPCS: 73030; 73080

== ENCOUNTER 2023-05-26 09:28 | Outpatient (AMB) | payer OTHER, SELFPAY ==
--- NOTE | 2023-05-26 09:41 | MHC.OFFVIS ---
Intake Vital Signs 05/26/23 09:49 Height 5 ft Weight 118 lb BMI 23.0 Handedness Right Intake Visit Reasons: Newprob-Left shoulder/elbow pain Intake Note: Sophie is a 77 year old right hand dominant female who presents today for a evaluation of her left shoulder pain. Patient reports ongoing pain for about a month. Patient had a fall a couple years ago which she thinks is the cause of her pain. Her pain starts on the posterior aspect of the shoulder and it radiates up to her neck and it sometimes goes down to her elbow. She finds relief when taking ibuprofen per patient. Allergies Penicillins Allergy (Mild, Verified 05/26/23 09:46) NUMBNESS HPI Newprob-Left shoulder/elbow pain HPI Details 77-year-old right hand dominant female, who is Georgian speaking, presents in the office today for an evaluation of left shoulder pain. Patient reports her left shoulder pain has been ongoing since 04/2023. She claims she fell a few years ago, which she thinks is the cause of her pain. She states the pain starts on the posterior aspect of the shoulder and radiates up to her neck. She also reports intermittent radiation of pain to the left elbow. She confirms the use of Ibuprofen, which give her relief. [facility] Medical History Varicose veins of bilateral lower extremities with pain Overweight (BMI 25.0-29.9) Depression Anxiety Vitamin B12 deficiency Vitamin D deficiency Osteoarthritis GERD without esophagitis Intermittent palpitations Benign essential hypertension Pure hypercholesterolemia Diabetes mellitus High cholesterol Hypertension Diabetes Fall Arthritis Hypertension Diabetes mellitus, type 2 Trigger ring finger of right hand Trigger finger Surgical History History of colonoscopy History of uterine prolapse Family History Father Hypertension Mother Stroke Son Hypertension Son Hypertension Sister No problems noted. Brother No problems noted. Social History Household Members: None Housing: Apartment Alcohol intake: never Patient Tobacco Use Status: Never used Tobacco e-Cigarette/Vaping Use: Never Used Second Hand Smoke Exposure: No service: No Current occupational status: disabled Cognitive needs: No Hearing needs: No Vision needs: Yes Review of Systems Const All systems reviewed & are unremarkable except as noted in HPI and below Physical Exam Vital Signs: BMI result Body Mass Index 23.0 Const General: cooperative and no acute distress Orientation/consciousness: patient oriented x3 Resp Effort & Inspection: normal respiratory effort and able to speak in complete sentences Cardio Peripheral pulses: Peripheral pulses 2+ throughout Skin General skin exam: no rashes or lesions noted Neuro General: patient oriented x3 Extrem Other: Left shoulder: Normal to inspection. No ecchymosis, erythema, or edema. Full shoulder ROM in all planes. Pain along the impingement arc. Tenderness to palpation along the spine of the scapula. Negative cross-body reach. Negative empty can. 3/5 strength with drop arm. NVI. Office Procedures Joint Injection/Drain Joint Injection/Drain Primary Site: left shoulder Prep: site was prepped using aseptic technique, ethochloride spray was applied and injection warnings given Injected: 40 mg of, DepoMedrol, with 8 mL of and in the subcromial space Procedure: The patient tolerated the procedure well and there was some relief with the local anesthesia Coding 90007 - Large joint Procedure code (CPT) selection complete Assessment & Plan Assessment & Plan (1) Myofascial pain on left side: Code(s): M79.18 - Myalgia, other site (2) Painful arc syndrome of left shoulder: Code(s): M75.102 - Unspecified rotator cuff tear or rupture of left shoulder, not specified as traumatic (3) Diabetes mellitus: Code(s): E11.9 - Type 2 diabetes mellitus without complications Qualifiers: Diabetes mellitus complication status: without complication Diabetes mellitus care home insulin use: without care home use Diabetes mellitus type: type 2 Qualified Code(s): E11.9 - Type 2 diabetes mellitus without complications Plan Ms. Yuen is a 77-year-old right hand dominant female, who is Georgian speaking, presents in the office today for an evaluation of left shoulder pain. Patient reports her left shoulder pain has been ongoing since 04/2023. She claims she fell a few years ago, which she thinks is the cause of her pain. She states the pain starts on the posterior aspect of the shoulder and radiates up to her neck. She also reports intermittent radiation of pain to the left elbow. She confirms the use of Ibuprofen, which give her relief. The patient was offered a cortisone injection in the left shoulder with 40 mg of DepoMedrol. The patient was explained the risk, benefits, and alternatives to receiving this injection. After receiving consent for the injection, the patient had the procedure done while in office today. The patient tolerated the procedure well with no complications. Due to the patient?s history of diabetes, they were instructed to monitor her blood glucose level. The patient was informed that they could see a rise in their numbers and if the numbers became too high, they were instructed to call their PCP. The patient was also informed that they could have facial flushing as a side effect of the injection but this will pass. In the event the patient?s pain continues I feel she should be further evaluated by Physiatry for possible trigger point injections. Follow up will be PRN, or sooner if needed. X-rays of the left shoulder, obtained on 04/28/2023, revealed: 1. Advanced degenerative changes left acromioclavicular joint. 2. Mild degenerative changes left glenohumeral joint. 3. Hypertrophic change along the medial greater than lateral epicondyles. 4. Small calcifications in the soft tissues superficially, particularly along the dorsal aspect of the elbow. Patient Instructions: Scribed by Matilde Gonzalez medical technologist prn, for Lizzeth Burgos PA-C on 05/26/2023 at 9:30 am, EST. 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
[2023-05-26 09:49] VITALS: BMI 23.0
== END 2023-05-26 11:27 | disposition home or self-care (01) ==
PROVIDERS: PCP Internal Medicine; Visit Provider Physician Assistant
DX: M79.18 Myalgia, other site (principal); M75.102 Unspecified rotator cuff tear or rupture of left shoulder, not specified as traumatic; E11.9 Type 2 diabetes mellitus without complications
CPT/HCPCS: 20610; 99214

== ENCOUNTER → 2023-05-26 09:28 | Outpatient (BNVA) | payer OTHER, SELFPAY | PROVIDERS: PCP Internal Medicine; Visit Provider Physician Assistant ==

== ENCOUNTER 2023-05-26 10:43 | Emergency (ER) | payer OTHER, SELFPAY ==
[2023-05-26 10:51] VITALS: BP 170/87; PULSE 100; RESP 16; TEMP 36.6; O2SAT 100; BMI 22.1
--- NOTE | 2023-05-26 10:58 | ECG_ITS ---
Test Reason : NEAR SYNCOPE Blood Pressure : / mmHG Vent. Rate : 090 BPM Atrial Rate : 090 BPM P-R Int : 140 ms QRS Dur : 114 ms QT Int : 372 ms P-R-T Axes : 057 002 040 degrees QTc Int : 455 ms Normal sinus rhythm Incomplete right bundle branch block Borderline ECG When compared with ECG of 30-OCT-2022 01:13, Non-specific change in ST segment in Anterior leads Referred By: Generic ED Physician Electronically Signed By:Finn Daily
[2023-05-26 11:08] LABS: Glucose, Whole Blood 122 mg/dL (60-115)
[2023-05-26 11:31] VITALS: BP 155/77; PULSE 90; RESP 20; TEMP 36.5; O2SAT 98
--- NOTE | 2023-05-26 11:42 | ED_ITS ---
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 She then started to panic. The outside started to get dark and she was asking people to help her. She had to lay herself down on a sofa in the main lobby and yell for help. No CP/SOB, n/v. She is hungry and needs anxiety medications. 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) Radiation: non-radiation Severity: moderate Quality: other (resolved) Pain Consistency: now resolved Relieving factors: rest Exacerbating factors: movement Associated symptoms: weakness Treatments prior to arrival: none Related Data Home Medications Medication Instructions Recorded Confirmed multivitamin (One Daily 1 tab PO DAILY 12/21/19 02/12/23 Multivitamin tablet) blood sugar diagnostic #10 ea 02/03/20 02/12/23 aspirin 81 mg tablet,delayed 81 mg PO DAILY 05/26/23 release (Adult Low Dose Aspirin) folic acid 400 mcg tablet 0.4 mg PO DAILY 05/26/23 ibuprofen 200 mg capsule 200 mg PO Q6H PRN 05/26/23 Previous Rx's Medication Instructions Recorded acetaminophen 325 mg tablet 650 mg (2 x 325 mg) PO BID-TID PRN 07/17/20 fever or pain #180 caps blood-glucose meter #1 ea 08/31/20 blood-glucose meter (Accu-Chek #1 ea 09/04/20 Genie Plus Meter) blood sugar diagnostic (Accu-Chek #100 ea 09/13/20 Genie Plus test strips) ibuprofen 600 mg tablet 600 mg PO Q6-8H PRN pain 30 days 09/27/20 #90 tabs lancets (Accu-Chek Softclix 1 ea topical BID #100 ea 06/07/22 Lancets) cholecalciferol (vitamin D3) 50 50 mcg PO DAILY #90 caps 10/07/22 mcg (2,000 unit) capsule (Vitamin D3) losartan 25 mg tablet 25 mg PO DAILY #90 tabs 10/07/22 Wipes #2 ea 11/25/22 Long Panty Liners #90 ea 11/25/22 blood pressure test kit-large #1 ea 11/28/22 atorvastatin 40 mg tablet 40 mg PO DAILY 90 days #90 caps 01/05/23 metformin 500 mg tablet 500 mg PO BID #180 tabs 01/05/23 hydroxyzine HCl 50 mg tablet 50 mg PO BID PRN anxiety 30 days 03/23/23 #60 tabs blood sugar diagnostic (Accu-Chek #50 ea 05/14/23 Guide test strips) blood sugar diagnostic (FreeStyle #50 ea 05/18/23 Lite Strips) blood-glucose meter (FreeStyle #1 ea 05/18/23 Lite Meter kit) Allergies Allergy/AdvReac Type Severity Reaction Status Date / Time Penicillins Allergy Mild NUMBNESS Verified 05/26/23 09:46 Review of Systems 2 Review of Systems: Constitutional : No Fever, No Chills ENT/Mouth : No Ear Pain, No Nasal Congestion, No sore throat Eyes: No Eye Pain, No Swelling, No Redness Cardiovascular : No Chest Pain, No SOB Respiratory : No Cough, No Sputum, No Dyspnea Gastrointestinal : No Nausea, No Vomiting, No Diarrhea, No Hematochezia, No Melena Genitourinary : No Dysuria, No Urinary Frequency, No Hematuria Musculoskeletal : No Myalgias Skin : No Skin Lesions, No rash Neuro : No Weakness, No Numbness, No Paresthesias, No Dizziness, No Headache Psych : positive Anxiety, no Depression, no SI/HI Heme/Lymph: No Lymphadenopathy Endocrine : No Polyuria, No Polydipsia All other systems reviewed and are negative [facility] Past Medical History Attestation statement: The following information was validated with the patient. Source: old records reviewed Medical History Varicose veins of bilateral lower extremities with pain Overweight (BMI 25.0-29.9) Depression Anxiety Vitamin B12 deficiency Vitamin D deficiency Osteoarthritis GERD without esophagitis Intermittent palpitations Benign essential hypertension Pure hypercholesterolemia Diabetes mellitus High cholesterol Hypertension Diabetes Fall Arthritis Hypertension Diabetes mellitus, type 2 Trigger ring finger of right hand Trigger finger Surgical History History of colonoscopy History of uterine prolapse Family History Family History Father Hypertension Mother Stroke Son Hypertension Son Hypertension Sister No problems noted. Brother No problems noted. Social History Social History Household Members: None Housing: Apartment Alcohol intake: never Patient Tobacco Use Status: Never used Tobacco Smoked in Last 30 Days: No e-Cigarette/Vaping Use: Never Used Second Hand Smoke Exposure: No Use of substances other than those prescribed or required for medical reasons: No Advance Directives: No Advance Directives Information Provided: Yes service: No Current occupational status: disabled Cognitive needs: No Hearing needs: No Vision needs: Yes Physical Exam ED Vital Signs: Vital Signs - 24 hr 05/26/23 10:51 05/26/23 11:31 Temperature 97.9 F 97.7 F Pulse Rate 100 90 Respiratory Rate 16 20 Blood Pressure 170/87 H 155/77 H Pulse Oximetry 100 98 Oxygen Delivery Method Room Air Room Air BMI result Body Mass Index 22.1 Appearance: Alert. Oriented X3. No acute distress. Eyes: Pupils equal, round and reactive to light. ENT: Pharynx normal. Neck: Normal inspection. Neck supple. CVS: Normal heart rate and rhythm. Pulses normal. Respiratory: No respiratory distress. Breath sounds normal. Abdomen: Soft and nontender. Skin: Skin warm and dry. Normal skin color. Normal skin turgor. Extremities: No lower extremity edema. No calf ttp . injection area of L shoulder c/d/i no hematoma or crepitus noted Neuro: Oriented X 3. No motor deficit. No sensory deficit. Medications Administered Discontinued Medications Generic Name Dose Route Start Last Admin Trade Name Freq PRN Reason Stop Dose Admin Hydroxyzine HCl 25 mg 05/26/23 11:42 05/26/23 11:53 Hydroxyzine Hcl 25 Mg Tablet PO 05/26/23 11:43 25 mg ONCE ONE Administration Medical Decision Making Medical Decision Making MDM Narrative: 77 yo female with PMH of arthritis, anxiety and panic attacks, GERD, HTN, HLD, DM here with c/o feeling weak and dizzy along with anxiety and panic attack after leaving orthopedic office. No CP/SOB at her baseline now asking for food and anxiety medications. She will get baseline labs and EKG doubt ACS or VTE. Has had same in past. Differential Diagnosis Differential Diagnoses: The differential diagnosis associated with the presentation includes panic attack, anemia, dehydration Admission/Observation Consideration of admission/observation: Escalation of care including admission/observation considered negative work up eating feels much better stable for DC Lab Data MDM Lab Attestation statement: I reviewed the patient's lab results. 05/26/23 11:50 05/26/23 11:50 Labs: Lab Results 05/26/23 05/26/23 Range/Units 11:02 11:50 WBC 5.7 (4.8-10.8) X10*3/uL RBC 4.24 (4.20-5.50) X10*6/uL Hgb 12.5 (12.0-16.0) g/dl Hct 37.5 (37.0-47.0) % MCV 88.4 (80.0-98.0) fL MCH 29.5 (27.0-33.0) pg MCHC 33.3 (31.0-35.0) g/dl RDW 13.8 (11.0-16.0) % Plt Count 255 (160-400) X10*3/uL MPV 9.4 (9.4-12.3) fL Immature Gran % (Auto) 0.3 (0.0-0.4) % Neut % (Auto) 69.6 (45-73) % Lymph % (Auto) 24.6 (20-40) % [place] % (Auto) 4.7 (2-11) % Eos % (Auto) 0.5 (0-4) % Baso % (Auto) 0.3 (0-2) % Lymph # (Auto) 1.4 (1.2-4.9) X10*3/uL [place] # (Auto) 0.3 (0.1-1.2) X10*3/uL Eos # (Auto) 0.0 (0.0-0.4) X10*3/uL Baso # (Auto) 0.0 (0.0-0.2) X10*3/uL Abs Immat Gran (auto) 0.02 (0.00-0.03) X10*3/uL Absolute Neuts (auto) 4.0 (2.0-8.3) x10*3/uL Absolute Nucleated RBC 0.000 (0.0-0.012) X10*3/uL Nucleated RBC % (auto) 0.0 (0.0-0.2) /100WBC Sodium 139 (135-145) mmol/L Potassium 4.2 (3.3-5.1) mmol/L Chloride 103 (96-108) mmol/L Carbon Dioxide 27 (22-29) mmol/L Anion Gap 13 (12-20) BUN 14 (9-16) mg/dL Creatinine 0.68 (0.5-1.4) mg/dL Estim Creat Clear Calc 50.5 Estimated GFR > 60 POC Glucose 122 H (60-115) mg/dL Random Glucose 113 (60-115) mg/dL Calcium 9.5 (8.4-10.2) mg/dL Magnesium 1.7 (1.6-2.6) mg/dL Total Bilirubin 0.3 (0.0-1.0) mg/dL Direct Bilirubin 0.1 (0.0-0.5) mg/dL AST 22 (5-31) U/L ALT 19 (0-31) U/L Alkaline Phosphatase 76 (39-117) U/L Total Protein 7.1 (6.5-8.0) g/dL Albumin 4.0 (3.5-5.0) g/dL Independent Interpretation I performed an independent interpretation of an: EKG Interpretation: Rate: 90 Rhythm: NSR [place]: normal Normal P waves. Normal CAMRYN. imcomplete RBBB ST T wave : no PEYMAN, inverted t wave V1 qTC: 455 prior studies: no acute change The study has been interpreted contemporaneously by me. . Radiology Impression Discussion of test interpretation with radiology: I have reviewed the radiologist's reading. External Record Review External record reviewed: Inpatient record Discharge Plan Discharge Clinical Impression: Anxiety, Weakness Patient Disposition: Home, Self-Care Instructions: Anxiety (ED), Weakness (ED) Additional Instructions: return for any worsening symptoms or concerns. Prescriptions: No Action acetaminophen 325 mg tablet 650 mg PO BID-TID PRN (Reason: fever or pain) Qty: 180 5RF (DME) blood-glucose meter Misc See Rx Instructions .ROUTE .MEDSUPPLY Qty: 1 0RF Rx Instructions: Accu-Chek Genie Plus (DME) blood-glucose meter [Accu-Chek Genie Plus Meter] Misc See Rx Instructions .ROUTE .MEDSUPPLY Qty: 1 0RF Rx Instructions: TEST 2 TIMES DAILY (DME) Accu-Chek Genie Plus test strp Strip See Rx Instructions .ROUTE .MEDSUPPLY Qty: 100 12RF Rx Instructions: As directed-In vitro twice a day ibuprofen 600 mg tablet 600 mg PO Q6-8H PRN (Reason: pain) 30 Days Qty: 90 0RF lancets [Accu-Chek Softclix Lancets] Misc 1 ea topical BID Qty: 100 5RF losartan 25 mg tablet 25 mg PO DAILY Qty: 90 3RF cholecalciferol (vitamin D3) [Vitamin D3] 50 mcg (2,000 unit) capsule 50 mcg PO DAILY Qty: 90 3RF (DME) Long Panty Liners See Rx Instructions .Route .MEDSUPPLY Qty: 90 12RF Rx Instructions: As directed (DME) Wipes See Rx Instructions .Route .MEDSUPPLY Qty: 2 12RF Rx Instructions: As directed (DME) blood pressure test kit-large Kit See Rx Instructions .Route Qty: 1 0RF Rx Instructions: As directed atorvastatin 40 mg tablet 40 mg PO DAILY 90 Days Qty: 90 1RF metformin 500 mg tablet 500 mg PO BID Qty: 180 1RF hydroxyzine HCl 50 mg tablet 50 mg PO BID PRN (Reason: anxiety) 30 Days Qty: 60 3RF (DME) Accu-Chek Guide test strips Strip See Rx Instructions .ROUTE .MEDSUPPLY Qty: 50 3RF Rx Instructions: As directed- in vitro twice a day. (DME) blood-glucose meter [FreeStyle Lite Meter] Kit See Rx Instructions .Route Qty: 1 0RF Rx Instructions: As directed (DME) FreeStyle Lite Strips Strip See Rx Instructions .Route Qty: 50 3RF Rx Instructions: As directed (DME) Accu-Chek Genie Plus test strp Strip See Rx Instructions Not Applicable BID Qty: 10 Rx Instructions: As directed multivitamin [One Daily Multivitamin] Tablet 1 tab PO DAILY aspirin [Adult Low Dose Aspirin] 81 mg tablet,delayed release (DR/EC) 81 mg PO DAILY folic acid 400 mcg tablet 0.4 mg PO DAILY ibuprofen 200 mg capsule 200 mg PO Q6H PRN Print Language: Mosotho
[2023-05-26] MEDS: hydrOXYzine HCL 25 MG TABLET PO (11:53)
[2023-05-26 12:00] LABS: MANUAL DIFF FLAG NO
[2023-05-26 12:05] LABS: Basophils Percent Auto 0.3 % (0-2); Eosinophils Percent Auto 0.5 % (0-4); Hematocrit 37.5 % (37.0-47.0); Hemoglobin 12.5 g/dl (12.0-16.0); Imm Gran Abs Auto 0.02 X10*3/uL (0.00-0.03); Imm Gran Pct Auto 0.3 % (0.0-0.4); Lymphocytes Absolute Auto 1.4 X10*3/uL (1.2-4.9); Lymphocytes Percent Auto 24.6 % (20-40); Mean Corpuscular HGB Conc 33.3 g/dl (31.0-35.0); Mean Corpuscular Hemoglobin 29.5 pg (27.0-33.0); Mean Corpuscular Volume 88.4 fL (80.0-98.0); Mean Platelet Volume 9.4 fL (9.4-12.3); Monocytes Absolute Auto 0.3 X10*3/uL (0.1-1.2); Monocytes Percent Auto 4.7 % (2-11); Neutrophils Percent Auto 69.6 % (45-73); Platelet Count 255 X10*3/uL (160-400); Red Blood Count 4.24 X10*6/uL (4.20-5.50); Red Cell Distribution Width 13.8 % (11.0-16.0); White Blood Count 5.7 X10*3/uL (4.8-10.8)
[2023-05-26 12:15] LABS: Alanine Aminotransferase 19 U/L (0-31); Alkaline Phosphatase 76 U/L (39-117); Anion Gap 13 (12-20); Aspartate Amino Transferase 22 U/L (5-31); Bilirubin Direct 0.1 mg/dL (0.0-0.5); Bilirubin Total 0.3 mg/dL (0.0-1.0); Blood Urea Nitrogen 14 mg/dL (9-16); Calcium 9.5 mg/dL (8.4-10.2); Carbon Dioxide 27 mmol/L (22-29); Chloride 103 mmol/L (96-108); Creatinine Clr Calc Pharmacy 50.5; Estimated Glomerular Filt Rate > 60; Glucose Random 113 mg/dL (60-115); Magnesium 1.7 mg/dL (1.6-2.6); Potassium 4.2 mmol/L (3.3-5.1); Sodium 139 mmol/L (135-145); Total Protein 7.1 g/dL (6.5-8.0)
[2023-05-26 12:21] LABS: Troponin-I High Sensitivity 7.6 ng/L (<3.5-17.0)
[2023-05-26] MEDS: Acetaminophen 325 MG TABLET 650 MG PO (13:05)
[2023-05-26 13:06] VITALS: BP 155/77; PULSE 90; RESP 20; TEMP 36.5; O2SAT 98
== END 2023-05-26 13:09 | disposition home or self-care (01) ==
PROVIDERS: Emergency Provider Emergency Medicine; PCP Internal Medicine
DX: F41.9 Anxiety disorder, unspecified (principal); M25.512 Pain in left shoulder; R53.1 Weakness; E11.9 Type 2 diabetes mellitus without complications; I10 Essential (primary) hypertension; I45.10 Unspecified right bundle-branch block; Z79.899 Other long term (current) drug therapy; Z79.84 Long term (current) use of oral hypoglycemic drugs
CPT/HCPCS: 20610; 36415; 80048; 80076; 82947; 83735; 84484; 85025; 93005; 99212; 99283; 99284; J1020

== ENCOUNTER → 2023-05-26 10:58 | Outpatient (BNV) | payer OTHER, SELFPAY | PROVIDERS: Emergency Provider Emergency Medicine; PCP Internal Medicine; Visit Provider Internal Medicine Cardiovascular Disease | DX: I45.10 Unspecified right bundle-branch block (principal) | CPT/HCPCS: 93010 ==

== ENCOUNTER 2023-06-13 08:50 | Outpatient (REF) | payer OTHER, SELFPAY ==
[2023-06-13 09:02] LABS: MANUAL DIFF FLAG NO
[2023-06-13 09:34] LABS: Basophils Percent Auto 0.5 % (0-2); Eosinophils Absolute Auto 0.1 X10*3/uL (0.0-0.4); Eosinophils Percent Auto 1.6 % (0-4); Hematocrit 35.9 % (37.0-47.0); Hemoglobin 12.1 g/dl (12.0-16.0); Imm Gran Abs Auto 0.01 X10*3/uL (0.00-0.03); Imm Gran Pct Auto 0.2 % (0.0-0.4); Lymphocytes Absolute Auto 2.1 X10*3/uL (1.2-4.9); Lymphocytes Percent Auto 37.6 % (20-40); Mean Corpuscular HGB Conc 33.7 g/dl (31.0-35.0); Mean Corpuscular Volume 88.9 fL (80.0-98.0); Mean Platelet Volume 9.8 fL (9.4-12.3); Monocytes Absolute Auto 0.4 X10*3/uL (0.1-1.2); Monocytes Percent Auto 6.4 % (2-11); Neutrophils Percent Auto 53.7 % (45-73); Platelet Count 251 X10*3/uL (160-400); Red Blood Count 4.04 X10*6/uL (4.20-5.50); Red Cell Distribution Width 13.8 % (11.0-16.0); White Blood Count 5.5 X10*3/uL (4.8-10.8)
[2023-06-13 09:40] LABS: Estimated Average Glucose 117 mg/dL; Hemoglobin A1c % 5.7 % (<6.0)
[2023-06-13 09:53] LABS: Appearance Urine Clear; Color Urine Yellow; Glucose Urine UA Negative (Negative); Leukocyte Esterase Urine Small (1+) (Negative); Nitrite Urine Negative (Negative); PH 6.5 (5.0-9.0); UMIC TRIGGER UACC YES; Urine Blood Negative (Negative); Urine Ketones Negative (Negative); Urine Protein Negative (Neg-Trace)
[2023-06-13 10:03] LABS: Alanine Aminotransferase 27 U/L (0-31); Albumin Level 3.8 g/dL (3.5-5.0); Alkaline Phosphatase 63 U/L (39-117); Anion Gap 11 (12-20); Aspartate Amino Transferase 23 U/L (5-31); Bilirubin Total 0.5 mg/dL (0.0-1.0); Blood Urea Nitrogen 12 mg/dL (9-16); Calcium 9.5 mg/dL (8.4-10.2); Carbon Dioxide 29 mmol/L (22-29); Chloride 104 mmol/L (96-108); Cholesterol 164 mg/dL (<200); Estimated Glomerular Filt Rate > 60; Glucose Fasting 107 mg/dL (60-99); HDL Cholesterol 74 mg/dL (>40); LDL Cholesterol Calculated 80 mg/dL (<100); Potassium 3.8 mmol/L (3.3-5.1); Sodium 140 mmol/L (135-145); Total Protein 6.9 g/dL (6.5-8.0); Triglycerides 54 mg/dL (<150)
[2023-06-13 10:09] LABS: Bacteria Urine None Seen (None Seen); Hyaline Casts Urine 0-2 /LPF (0-2); RBC Urine 0-2 /HPF (0-2); Squamous Epithelial Cell Urine 0-2 /HPF (0-2); UACC Culture Trigger YES; WBC Urine 0-5 /HPF (0-5)
[2023-06-13 10:19] LABS: TSH reflex Free T4 2.62 uIU/mL (0.32-4.0); Vitamin D 25-OH Total 38.8 ng/mL (>30)
[2023-06-13 10:26] LABS: Creatinine Urine 63.72 mg/dL; Microalbumin Urine < 5.0 mg/L
[2023-06-13 10:34] LABS: Folate 11.1 ng/mL (> or = 4.0); Vitamin B12 459 pg/mL (200-900)
== END 2023-06-13 08:51 | disposition home or self-care (01) ==
LOC: HO.LAB 08:50
PROVIDERS: PCP Internal Medicine; Visit Provider Internal Medicine
DX: I10 Essential (primary) hypertension (principal); E78.00 Pure hypercholesterolemia, unspecified; E53.8 Deficiency of other specified B group vitamins; E55.9 Vitamin D deficiency, unspecified; E11.9 Type 2 diabetes mellitus without complications; R30.0 Dysuria
CPT/HCPCS: 36415; 80053; 80061; 81001; 82043; 82306; 82570; 82607; 82746; 83036; 84443; 85025; 87086

== ENCOUNTER 2023-06-18 11:05 | Outpatient (AMB) | payer OTHER, SELFPAY ==
[2023-06-18 11:06] VITALS: BP 134/68; PULSE 74; O2SAT 98; BMI 23.0
--- NOTE | 2023-06-18 11:06 | MHC.PC.OV ---
Vital Signs 06/18/23 11:06 Height 5 ft Weight 118 lb BMI 23.0 BP 134/68 Blood Pressure Location Lt brachial Position Sitting Pulse 74 Pulse Source Pulse Oximeter Pulse Oximetry (%) 98 Oxygen Delivery Method Room Air Intake Visit Reasons: DM, hyperlipidemia, HTN, OA Intake Note: Patient is here to follow up Slurry Man Required: No Allergies Penicillins Allergy (Mild, Verified 06/18/23 11:34) NUMBNESS Medication List - Last Reconciled 06/18/23 by Maxx Prieto MD [Wipes As directed] acetaminophen 650 mg (2 x 325 mg) PO BID-TID PRN aspirin (Adult Low Dose Aspirin) 81 mg PO DAILY atorvastatin 40 mg PO DAILY 90 days blood pressure test kit-large As directed blood sugar diagnostic As directed blood sugar diagnostic (Accu-Chek Genie Plus test strips) As directed-In vitro twice a day blood sugar diagnostic (Accu-Chek Guide test strips) As directed- in vitro twice a day. blood sugar diagnostic (FreeStyle Lite Strips) As directed blood-glucose meter Accu-Chek Genie Plus blood-glucose meter (Accu-Chek Genie Plus Meter) TEST 2 TIMES DAILY blood-glucose meter (FreeStyle Lite Meter kit) As directed cholecalciferol (vitamin D3) (Vitamin D3) 50 mcg PO DAILY folic acid 0.4 mg PO DAILY hydroxyzine HCl 50 mg PO BID PRN 30 days ibuprofen 600 mg PO Q6-8H PRN 30 days ibuprofen 200 mg PO Q6H PRN lancets (Accu-Chek Softclix Lancets) 1 ea topical BID [Long Panty Liners As directed] losartan 25 mg PO DAILY metformin 500 mg PO BID multivitamin (One Daily Multivitamin tablet) 1 tab PO DAILY Tobacco use date assessed: 06/18/23 Fall risk assessment: No Falls in past year Last assessed Fall Risk: 06/18/23 Dental Screening Dental Screen Date: 06/18/23 HPI DM, hyperlipidemia, HTN, OA HPI Details Patient comes in today for her follow up visit States that she currently feels okay She apparently had a panic attack a few weeks ago on 05/26/2023 after she received some cortisone injection into her left shoulder from orthopedics and later realized that her arms feel more sore and she had a hard time moving her armr Recalls that she was inside her car at the time and started panicking when she could not open the door to get out due to the increased pain and soreness in her arms She was checked out at the ER then and all of her evaluation and work ups came out okay She was feeling better after a while and was eventually discharged back home and instructed to continue on all of her usual Rx She currently denies any headaches or dizziness Denies any chest pains, no SOB No nausea/vomiting, no abdominal pain No change in bowel habits noted Had her follow up labs done a few days ago - to discuss her results [facility] Medical History Varicose veins of bilateral lower extremities with pain Overweight (BMI 25.0-29.9) Depression Anxiety Vitamin B12 deficiency Vitamin D deficiency Osteoarthritis GERD without esophagitis Intermittent palpitations Benign essential hypertension Pure hypercholesterolemia Diabetes mellitus High cholesterol Hypertension Diabetes Fall Arthritis Hypertension Diabetes mellitus, type 2 Trigger ring finger of right hand Trigger finger Surgical History History of colonoscopy History of uterine prolapse Family History Father Hypertension Mother Stroke Son Hypertension Son Hypertension Sister No problems noted. Brother No problems noted. Social History Household Members: None Housing: Apartment Alcohol intake: never Patient Tobacco Use Status: Never used Tobacco e-Cigarette/Vaping Use: Never Used Second Hand Smoke Exposure: No service: No Current occupational status: disabled Cognitive needs: No Hearing needs: No Vision needs: Yes Questionnaire PHQ-9 Over the last 2 weeks, how often have you been bothered by any of the following problems? 1. Little interest or pleasure in doing things: not at all 2. Feeling down, depressed, or hopeless: not at all 3. Trouble falling or staying asleep, or sleeping too much: not at all 4. Feeling tired or having little energy: not at all 5. Poor appetite or overeating: not at all 6. Feeling bad about yourself - or that you are a failure or have let yourself or your family down: not at all 7. Trouble concentrating on things, such as reading the newspaper or watching television: not at all 8. Moving or speaking so slowly that other people could have noticed. Or the opposite - being so fidgety or restless that you have been moving around a lot more than usual: not at all 9. Thoughts that you would be better off or of hurting yourself in some way: not at all Total score: 0 Depression Screening Interpretation: Negative Depression Screening Done: Yes 51370 - PHQ-9 Billing: Yes Source: Developed by Drs. Krzysztof Phelps, Ketty Wong, Florentino Aiken and colleagues, with an educational kat from [employer]. Thrive Questionnaire Date Thrive assessed: 06/18/23 I am a: Patient What is your living situation today?: I have a steady place to live Within the past 12 months, did the food you bought not last and you didn't have the money to get more?: Never true Within the past 12 months, did you worry whether your food would run out before you got money to buy more?: Never true Do you have trouble paying for medicines?: No Do you have trouble getting transportation to medical appointments?: No Do you have trouble paying your heating and electricity bill?: No Do you have trouble taking care of your child, family member or friend?: No Do you have trouble with day-to-day activities such as bathing, preparing meals, shopping, managing finances, etc.?: No Are you currently unemployed and looking for a job?: No Are you interested in more education?: No Please select the resources that you would like help with: None Currently or been in a relationship where the following occur: no concerns reported THRIVE Score: 0 AUDIT C Alcohol Use Questionnaire (AUDIT-C) 1. How often do you have a drink containing alcohol?: Never 3. How often do you have six or more drinks on one occasion?: Never Total Score: 0 Score Reviewed/Action Taken: Yes TALI-7 AMB Questionnaire TALI-7 Date TALI - 7 assessed: 06/18/23 Source: Developed by Drs. Krzysztof Phelps, Ketty Wong, Florentino Aiken and colleagues, with an educational kat from [employer]. Review of Systems Const Denies chills, Denies fatigue, Denies fever(s) and Denies headache(s) ENT Denies dysphagia, Denies dizziness, Denies otalgia, Denies headache(s), Reports hearing loss (now has hearing aids), Denies odynophagia and Denies sore throat Card Denies chest pain, Denies palpitations and Denies dyspnea Resp Denies cough and Denies dyspnea GI Denies abdominal pain, Denies constipation, Denies dysphagia, Denies heartburn, Denies diarrhea, Denies nausea, Denies odynophagia and Denies vomiting Denies difficulty voiding, Denies nocturia, Denies dysuria and Denies urinary urgency Musc Denies back pain, Reports arthralgias (in the right hip, on and off; base of right thumb/wrist; left shoulder) and Denies joint swelling Skin/Breast Denies rash Neuro Denies dizziness and Denies headache(s) Psych Reports anxiety (on and off) and Reports panic attacks (had one episode a few weeks ago on 05/26/2023 - went to ER) Endo Denies fatigue and Denies palpitations Physical exam (Primary Care) Vital Signs: Last Vital Signs Pulse 74 06/18/23 11:06 BP 134/68 06/18/23 11:06 Pulse Ox 98 06/18/23 11:06 Oxygen Delivery Method Room Air 06/18/23 11:06 BMI result Body Mass Index 23.0 Tobacco/Smoking Status: Tobacco use Status Tobacco use date assessed 06/18/23 06/18/23 11:07 Patient Tobacco Use Status Never used Tobacco 06/18/23 11:07 e-Cigarette/Vaping Use Never Used 06/18/23 11:07 PHQ-9: PHQ-9 Score PHQ-9: Total score 0 06/18/23 11:07 Depression Screening Interpretation: Negative Thrive Assessment: Date of Thrive Assessment Date Thrive assessed 06/18/23 06/18/23 11:07 Currently or been in a relationship where the following occur: no concerns reported Const General: no acute distress and alert HENMT Ears: TM's normal bilaterally and EAC's normal Throat: Yes posterior oropharynx normal and Yes tonsils normal (no TP congestion noted) Neck Neck: Yes no lymphadenopathy and Yes supple Thyroid: Thyroid normal Resp Auscultation: clear to auscultation bilaterally, no rales and no wheezes Cardio Rate: regular rate Rhythm: regular rhythm Heart sounds: no murmurs GI Palpation (GI): Soft to palpation and nontender Auscultation: normal bowel sounds General: Yes no CVA tenderness Back/Spine/Pelvis Back: no CVA tenderness Skin Rashes: no rashes Extrem Other: (+) scattered prominent varicose veins on both lower extremities that are tender on palpation General: Yes no clubbing, cyanosis or edema Right upper extremity: elbow/forearm Details: tenderness (over the muscles on the radial side of the forearm), wrist Details: tenderness; no swelling and Extremity exam: right hand Details: tenderness Location: of the thumb Location: at the MCP joint and no swelling Results Reviewed Results Reviewed: Laboratory Tests 06/13/23 09:00 WBC 5.5 Hgb 12.1 Hct 35.9 L Plt Count 251 Sodium 140 Potassium 3.8 Creatinine 0.73 Estimated GFR > 60 Fasting Glucose 107 H Hemoglobin A1c % 5.7 Calcium 9.5 AST 23 ALT 27 Triglycerides 54 Cholesterol 164 LDL Cholesterol, Calc 80 HDL Cholesterol 74 Vitamin B12 459 25-OH Vitamin D Total 38.8 TSH 2.62 Ur Specific [place] 1.010 Urine Protein Negative Urine Glucose (UA) Negative Urine Blood Negative Urine Nitrite Negative Ur Leukocyte Esterase Small (1+) H Assessment and Plan Assessment & Plan (1) Pure hypercholesterolemia: Code(s): E78.00 - Pure hypercholesterolemia, unspecified Plan: Results of her labs done a few days ago reviewed and discussed with patient Reinforced low cholesterol diet Continue Atorvastatin 40 mg QD Will recheck her labs and fasting lipids in 4 months for follow up (2) Diabetes mellitus: Code(s): E11.9 - Type 2 diabetes mellitus without complications Qualifiers: Diabetes mellitus type: type 2 Diabetes mellitus long term acute care registered nurse insulin use: without long term acute care registered nurse use Diabetes mellitus complication status: without complication Qualified Code(s): E11.9 - Type 2 diabetes mellitus without complications Plan: HgbA1c was at 5.7% on her labs done a few days ago (was at 5.4% previously) - goal is <7.0% Reinforced diabetic diet Continue Metformin 500 mg BID (3) Benign essential hypertension: Code(s): I10 - Essential (primary) hypertension Plan: Reinforced low sodium diet - goal is systolic BP of at least 130 to 140 mm or less Continue Losartan 25 mg QD (4) Intermittent palpitations: Code(s): R00.2 - Palpitations Plan: Holter monitor done a couple of years ago showed sinus rhythm with occasional PACs; echocardiogram done back in July 2017 came out normal Symptoms have since resolved; patient states that she rarely experiences any palpitations now although she reports experiencing an episode yesterday for about 3 minutes Was taking Metoprolol ER 25 mg QD previously for rate control but patient self-discontinued her Rx several months ago as she did not feel that she needed to continue on it - states that she has not had any recurrence of symptoms since stopping Metoprolol ER until yesterday Is advised to call right away if this occurs again - may need to reevaluate her and consider starting her back on low dose Metoprolol then (5) GERD without esophagitis: Code(s): K21.9 - Gastro-esophageal reflux disease without esophagitis Plan: Dietary restrictions reinforced (6) Osteoarthritis: Code(s): M19.90 - Unspecified osteoarthritis, unspecified site Qualifiers: Osteoarthritis location: unspecified site Osteoarthritis type: primary Qualified Code(s): M19.91 - Primary osteoarthritis, unspecified site Plan: Continue Acetaminophen 325 mg 2 tablets 2 to 3 times a day as needed for joint pain Her left knee pain has improved a lot with cortisone injection and physical therapy X-rays of the right hip done a few months ago revealed (+) mild OA changes; states that her right hip pain has subsided a lot since Have recommended to go to physical therapy if her hip pain flares up again; patient will call for referral if needed Follow-up with rheumatology and orthopedics as scheduled (7) Pain of right thumb: Code(s): M79.644 - Pain in right finger(s) Plan: X-rays of the right hand done in May 2022 revealed (+) mild degenerative changes of the hands Follow up with orthopedics as scheduled (8) Vitamin D deficiency: Code(s): E55.9 - Vitamin D deficiency, unspecified Plan: Continue Vitamin D3 1000 units QD (9) Vitamin B12 deficiency: Code(s): E53.8 - Deficiency of other specified B group vitamins Plan: Continue Vitamin B12 tablets 1000 mcg QD (10) Varicose veins of bilateral lower extremities with pain: Code(s): I83.813 - Varicose veins of bilateral lower extremities with pain Plan: S/P EVLT of the left lower extremity with (+) symptomatic improvement Follow up with Dr. Ricardo Yip for vascular surgery management as scheduled (11) Anxiety: Code(s): F41.9 - Anxiety disorder, unspecified Plan: Continue Hydroxyzine 50 mg Q HS PRN Patient also used to take Buspirone 10 mg BID but it looks like she self-discontinued this a while back and she declines offer to start her back on Rx at this time Due to her recent anxiety and panic attack episode, will refer her to psychiatry for further evaluation and management (12) Depression: Code(s): F32.9 - Major depressive disorder, single episode, unspecified Qualifiers: Depression Type: major depressive disorder Major depression recurrence: recurrent Active/Remission status: currently active Major depression episode severity: unspecified Qualified Code(s): F33.9 - Major depressive disorder, recurrent, unspecified Plan: Continue Fluoxetine 10 mg QD Follow-up with Psychiatry as scheduled (13) Osteoporosis screening: Code(s): Z13.820 - Encounter for screening for osteoporosis Plan: Will send her for repeat BMD for follow up - BMD done in 05/2020 came out normal Plan Follow up in 4 months Orders: Orders XR DEXA axial skeleton Today Z78.0 - Asymptomatic menopausal state Hemoglobin A1c 4 Months E11.9 - Type 2 diabetes mellitus without complications Complete Blood Count Auto Diff 4 Months D64.9 - Anemia, unspecified Comprehensive [place]. Panel Fast 4 Months E78.00 - Pure hypercholesterolemia, unspecified Lipid Panel 4 Months E78.00 - Pure hypercholesterolemia, unspecified Microalbumin, Random (w Creat) 4 Months E11.9 - Type 2 diabetes mellitus without complications TSH reflex Free T4 4 Months E78.00 - Pure hypercholesterolemia, unspecified UA CC w/rflx Micro + Cult 4 Months R30.0 - Dysuria Vitamin B12 and Folate 4 Months E53.8 - Deficiency of other specified B group vitamins Vitamin D 25-OH Total 4 Months E55.9 - Vitamin D deficiency, unspecified Referrals Psychiatry Referral F33.9 - Major depressive disorder, recurrent, unspecified, F41.0 - Panic disorder [episodic paroxysmal anxiety], F41.9 - Anxiety disorder, unspecified Coding Level of Care Code Est Pt Level 4 (61209) Diagnoses Pure hypercholesterolemia E78.00 Type 2 diabetes mellitus without complication, without long-term current use of insulin E11.9 Diabetes mellitus type: type 2 Diabetes mellitus long term acute care registered nurse insulin use: without alf use Diabetes mellitus complication status: without complication Benign essential hypertension I10 Intermittent palpitations R00.2 GERD without esophagitis K21.9 Primary osteoarthritis, unspecified site M19.91 Osteoarthritis location: unspecified site Osteoarthritis type: primary Pain of right thumb M79.644 Vitamin D deficiency E55.9 Vitamin B12 deficiency E53.8 Varicose veins of bilateral lower extremities with pain I83.813 Anxiety F41.9 Episode of recurrent major depressive disorder, unspecified depression episode severity F33.9 Depression Type: major depressive disorder Major depression recurrence: recurrent Active/Remission status: currently active Major depression episode severity: unspecified Osteoporosis screening Z13.820
== END 2023-06-18 11:56 | disposition home or self-care (01) ==
PROVIDERS: PCP Internal Medicine; Visit Provider Internal Medicine
DX: E11.9 Type 2 diabetes mellitus without complications (principal); F33.9 Major depressive disorder, recurrent, unspecified; E78.00 Pure hypercholesterolemia, unspecified; I10 Essential (primary) hypertension; R00.2 Palpitations; K21.9 Gastro-esophageal reflux disease without esophagitis; M19.91 Primary osteoarthritis, unspecified site; M79.644 Pain in right finger(s); E55.9 Vitamin D deficiency, unspecified; E53.8 Deficiency of other specified B group vitamins; I83.813 Varicose veins of bilateral lower extremities with pain; F41.9 Anxiety disorder, unspecified
CPT/HCPCS: 99214

== ENCOUNTER 2023-07-08 09:02 | Outpatient (REF) | payer OTHER, SELFPAY ==
--- NOTE | ~2023-07-08 | MM_ITS ---
EXAMINATION: BONE DENSITOMETRY CLINICAL INDICATION: Menopause. COMPARISON: Previous BD dated 06/20/2020 and baseline BD dated 01/25/2007. TECHNIQUE: Using a [employer] DXA System (software version: 13.1) manufactured by [employer], dual-energy x-ray absorptiometry was performed of the lumbar spine and left hip. The images are of good technical quality. Summary results are attached. FINDINGS: LEFT FEMUR, NECK: Current: BMD 0.945 g/cm2, Z-score 1.5, T-score -0.7, normal. Prior: BMD 0.968 g/cm2. Baseline: BMD 1.058 g/cm2. LEFT FEMUR, TOTAL: Current: BMD 0.918 g/cm2, Z-score 1.3, T-score -0.7, normal, 8.5% decrease from previous, 18.6% decrease from baseline (<5% change is not significant). Prior: BMD 1.003 g/cm2. Baseline: BMD 1.128 g/cm2. AP SPINE L1-L4: Current: BMD 1.124 g/cm2, Z-score 1.7, T-score -0.5, normal, 5.8% decrease from previous, 8.6% decrease from baseline (<5% change is not significant). Prior: BMD 1.193 g/cm2. Baseline: BMD 1.230 g/cm2. IDENTIFIED RISK FACTORS: Menopause, hysterectomy, rheumatoid arthritis. HISTORY OF FRACTURE: None listed. MEDICATIONS: Multivitamin, vitamin D. MM/XR DEXA axial skeleton IMPRESSION: 1. DIAGNOSIS: Normal bone density based on the lowest T-score value of -0.7 in the total femur applying World Health Organization criteria. 2. 10-YEAR FRACTURE RISK PREDICTION, FRAX: According to the guidelines, FRAX calculation should only be performed on patients in the osteopenia bone density category. Therefore, FRAX was not performed on this patient. 3. Treatment Recommendations: NOF guidelines recommend consideration for treatment in postmenopausal women and men age 50 and older presenting with the following: -A hip or vertebral (clinical or morphometric) fracture. -T-score less than or equal to -2.5 at the femoral neck or spine after appropriate evaluation to exclude secondary causes. -Low bone mass at the hip or spine and a 10-year fracture probability by FRAX of greater than or equal to 3% for hip fracture or greater than or equal to 20% for major osteoporotic fracture based on the [place] adapted WHO algorithm. 4. Other Recommendations: All treatment decisions require clinical judgment and consideration of individual patient factors, including patient preferences, comorbidities, previous drug use, risk factors not captured in the FRAX model (e.g. frailty, falls, vitamin D deficiency, increased bone turnover, interval significant decline in bone density) and possible under or overestimation of fracture risk by FRAX. FUTURE SCAN RECOMMENDATION: People with diagnosed cases of osteoporosis or at high risk for fracture should have regular bone mineral density tests. For patients eligible for Medicare, routine testing is allowed once every 2 years. The testing frequency can be increased to one year for patients who have rapidly progressing disease, those who are receiving or discontinuing medical therapy to restore bone mass, or have additional risk factors.
== END 2023-07-08 09:03 | disposition home or self-care (01) ==
LOC: HO.MAMMO 09:02
PROVIDERS: PCP Internal Medicine; Visit Provider Internal Medicine
DX: Z13.820 Encounter for screening for osteoporosis (principal); Z78.0 Asymptomatic menopausal state
CPT/HCPCS: 77080

== ENCOUNTER 2023-08-31 14:25 | Outpatient (REF) | payer OTHER, SELFPAY ==
--- NOTE | ~2023-08-31 | XR_ITS ---
EXAMINATION: XR THORACIC SPINE CLINICAL INFORMATION: Back pain, patient states mostly lower back, right hip pain, but also talked about recent bone density study and pain in upper back. Confirmed exam with patient. COMPARISON: May 29, 2016. TECHNIQUE: 3 views of the thoracic spine were obtained. FINDINGS: Diffuse demineralization. Multilevel degenerative changes in the thoracic spine. Thoracolumbar scoliosis. XR/XR thoracic spine 3V IMPRESSION: Multilevel degenerative changes in the thoracic spine. Multilevel degenerative changes in the thoracic spine.
== END 2023-08-31 14:26 | disposition home or self-care (01) ==
LOC: HO.XRAY 14:25
PROVIDERS: PCP Internal Medicine; Visit Provider Internal Medicine
DX: M54.9 Dorsalgia, unspecified (principal)
CPT/HCPCS: 72072

== ENCOUNTER 2023-10-09 01:32 | Emergency (ER) | payer OTHER, SELFPAY ==
--- NOTE | 2023-10-09 | ECG_ITS ---
Test Reason : Heart Racing Blood Pressure : / mmHG Vent. Rate : 088 BPM Atrial Rate : 088 BPM P-R Int : 126 ms QRS Dur : 108 ms QT Int : 374 ms P-R-T Axes : 051 -05 022 degrees QTc Int : 452 ms Sinus rhythm with Premature atrial complexes Incomplete right bundle branch block Borderline ECG When compared with ECG of 26-MAY-2023 11:10, Premature atrial complexes are now Present Referred By: Generic ED Physician Electronically Signed By:LUIS SMITH MD
[2023-10-09 01:41] VITALS: BP 155/76; PULSE 126; RESP 18; TEMP 36.7; O2SAT 97; BMI 22.7
[2023-10-09 01:52] LABS: MANUAL DIFF FLAG NO
[2023-10-09 01:53] LABS: Basophils Percent Auto 0.3 % (0-2); Eosinophils Percent Auto 0.5 % (0-4); Hematocrit 35.9 % (37.0-47.0); Hemoglobin 12.4 g/dl (12.0-16.0); Imm Gran Abs Auto 0.02 X10*3/uL (0.00-0.03); Imm Gran Pct Auto 0.3 % (0.0-0.4); Lymphocytes Absolute Auto 1.7 X10*3/uL (1.2-4.9); Lymphocytes Percent Auto 21.5 % (20-40); Mean Corpuscular HGB Conc 34.5 g/dl (31.0-35.0); Mean Corpuscular Hemoglobin 30.6 pg (27.0-33.0); Mean Corpuscular Volume 88.6 fL (80.0-98.0); Mean Platelet Volume 9.3 fL (9.4-12.3); Monocytes Absolute Auto 0.5 X10*3/uL (0.1-1.2); Monocytes Percent Auto 6.1 % (2-11); Neutrophils Absolute Auto 5.7 x10*3/uL (2.0-8.3); Neutrophils Percent Auto 71.3 % (45-73); Platelet Count 226 X10*3/uL (160-400); Red Blood Count 4.05 X10*6/uL (4.20-5.50); Red Cell Distribution Width 13.3 % (11.0-16.0); White Blood Count 7.9 X10*3/uL (4.8-10.8)
[2023-10-09 02:09] LABS: Alanine Aminotransferase 17 U/L (0-31); Albumin Level 4.2 g/dL (3.5-5.0); Alkaline Phosphatase 75 U/L (39-117); Anion Gap 12 (12-20); Aspartate Amino Transferase 22 U/L (5-31); Bilirubin Total 0.4 mg/dL (0.0-1.0); Blood Urea Nitrogen 12 mg/dL (9-16); Carbon Dioxide 29 mmol/L (22-29); Chloride 103 mmol/L (96-108); Creatinine Clr Calc Pharmacy 49.5; Estimated Glomerular Filt Rate > 60; Glucose Random 116 mg/dL (60-115); Potassium 3.5 mmol/L (3.3-5.1); Sodium 140 mmol/L (135-145); Total Protein 7.4 g/dL (6.5-8.0)
[2023-10-09 02:32] VITALS: BP 150/78; PULSE 85; PULSE 88; RESP 15; TEMP 36.6; O2SAT 99
[2023-10-09 02:45] LABS: Glucose, Whole Blood 103 mg/dL (60-115)
--- NOTE | 2023-10-09 04:21 | ED.GENADULT ---
HPI - General Adult General Chief complaint: Arrhythmia/Palpitations Stated complaint: heart is racing suffers from panic attacks Time Seen by Provider: 10/09/23 04:16 Source: patient Mode of arrival: ambulatory Limitations: no limitations History of Present Illness ED Provider: Dr. Jeanne Curiel HPI narrative: Patient comes to the emergency room complaining of palpitations. Patient states that she was sleeping, woke up with palpitations, lasted for about 3 minutes, drank water and then they self-resolved. Patient states that she walked around the house making sure she was okay, then went to bed, then she started becoming anxious and asked her family to bring her to the emergency room. Patient states that she did not have any recurrent palpitations after the 1st episode at midnight. Patient denies any chest pain or shortness of breath. At this time, patient is asymptomatic. Related Data Home Medications ?Medication ?Instructions ?Recorded ?Confirmed multivitamin (One Daily 1 tab PO DAILY 12/21/19 06/18/23 Multivitamin tablet) blood sugar diagnostic #10 ea 02/03/20 06/18/23 aspirin 81 mg tablet,delayed 81 mg PO DAILY 05/26/23 06/18/23 release (Adult Low Dose Aspirin) folic acid 400 mcg tablet 0.4 mg PO DAILY 05/26/23 06/18/23 ibuprofen 200 mg capsule 200 mg PO Q6H PRN 05/26/23 06/18/23 Previous Rx's ?Medication ?Instructions ?Recorded acetaminophen 325 mg tablet 650 mg (2 x 325 mg) PO BID-TID PRN 07/17/20 fever or pain #180 caps blood-glucose meter #1 ea 08/31/20 blood-glucose meter (Accu-Chek #1 ea 09/04/20 Genie Plus Meter) blood sugar diagnostic (Accu-Chek #100 ea 09/13/20 Genie Plus test strips) ibuprofen 600 mg tablet 600 mg PO Q6-8H PRN pain 30 days 09/27/20 #90 tabs lancets (Accu-Chek Softclix 1 ea topical BID #100 ea 06/07/22 Lancets) Wipes #2 ea 11/25/22 Long Panty Liners #90 ea 11/25/22 blood pressure test kit-large #1 ea 11/28/22 hydroxyzine HCl 50 mg tablet 50 mg PO BID PRN anxiety 30 days 03/23/23 #60 tabs blood sugar diagnostic (Accu-Chek #50 ea 05/14/23 Guide test strips) blood sugar diagnostic (FreeStyle #50 ea 05/18/23 Lite Strips) blood-glucose meter (FreeStyle #1 ea 05/18/23 Lite Meter kit) atorvastatin 40 mg tablet 40 mg PO DAILY 90 days #90 caps 07/05/23 metformin 500 mg tablet 500 mg PO BID #180 tabs 07/05/23 cholecalciferol (vitamin D3) 50 50 mcg PO DAILY #90 caps 10/02/23 mcg (2,000 unit) capsule (Vitamin D3) losartan 25 mg tablet 25 mg PO DAILY #90 tabs 10/02/23 Allergies Allergy/AdvReac Type Severity Reaction Status Date / Time Penicillins Allergy Mild NUMBNESS Verified 10/09/23 01:46 Review of Systems Review of Systems: Constitutional : No Weight loss, No Fever, No Chills, No Night Sweats, No Fatigue, No Malaise ENT/Mouth : No Hearing loss, No Ear Pain, No Nasal Congestion, No Sinus Pain, No Hoarseness, No sore throat, No Rhinorrhea, No Swallowing Difficulty Eyes: No Eye Pain, No Swelling, No Redness, No Foreign Body, No Discharge, No Vision Changes Cardiovascular : No Chest Pain, No SOB, No Dyspnea on Exertion, No Orthopnea, No Edema, complaining of Palpitations Respiratory : No Cough, No Sputum, No Wheezing, No Smoke Exposure, No Dyspnea Gastrointestinal : No Nausea, No Vomiting, No Diarrhea, No Constipation, No abdominal Pain, No Hematochezia, No Melena Genitourinary : no irregular bleeding, No Dysuria, No Urinary Frequency, No Hematuria, No Urinary Incontinence, No Urgency, No Flank Pain, No Urinary Flow Changes, No Hesitancy Musculoskeletal : No joint pain, No Myalgias, No Joint Swelling Skin : No Skin Lesions, No rash Neuro : No Weakness, No Numbness, No Paresthesias, No Loss of Consciousness, No Dizziness, No Headache Psych : No Anxiety/Panic, No Depression, No SI/HI/AH/VH, No Social Issues, Heme/Lymph: No Bruising, No Bleeding,No Lymphadenopathy Endocrine : No Polyuria, No Polydipsia, No Temperature Intolerance [facility] Past Medical History Medical History Varicose veins of bilateral lower extremities with pain Overweight (BMI 25.0-29.9) Depression Anxiety Vitamin B12 deficiency Vitamin D deficiency Osteoarthritis GERD without esophagitis Intermittent palpitations Benign essential hypertension Pure hypercholesterolemia Diabetes mellitus High cholesterol Hypertension Diabetes Fall Arthritis Hypertension Diabetes mellitus, type 2 Trigger ring finger of right hand Trigger finger Surgical History History of colonoscopy History of uterine prolapse Family History Family History Father Hypertension Mother Stroke Son Hypertension Son Hypertension Sister No problems noted. Brother No problems noted. Social History Social History Household Members: None Housing: Apartment Alcohol intake: never Patient Tobacco Use Status: Never used Tobacco Smoked in Last 30 Days: No e-Cigarette/Vaping Use: Never Used Second Hand Smoke Exposure: No Use of substances other than those prescribed or required for medical reasons: No Advance Directives: No Advance Directives Information Provided: No service: No Current occupational status: disabled Cognitive needs: No Hearing needs: No Vision needs: Yes Physical Exam ED Vital Signs: Vital Signs - 24 hr 10/09/23 01:41 10/09/23 02:32 Temperature 98.1 F 97.8 F Pulse Rate 126 H 88 Respiratory Rate 18 15 Blood Pressure 155/76 H 150/78 H Pulse Oximetry 97 99 Oxygen Delivery Method Room Air Room Air BMI result Body Mass Index 22.7 Const Other: Appearance: Alert. Oriented X3. No acute distress. Eyes: Pupils equal, round and reactive to light. ENT: Pharynx normal. Neck: Normal inspection. Neck supple. No lymph nodes noted. No crepitus CVS: Normal heart rate and rhythm. Pulses normal. Normal S1 and S2 Respiratory: No respiratory distress. Breath sounds normal. No Wheezing. No rales Abdomen: Soft and nontender. No rigidity. No distention. Skin: Skin warm and dry. Normal skin color. Normal skin turgor. Extremities: No lower extremity edema. No Lacerations. No Rash Neuro: Oriented X 3. No motor deficit. No sensory deficit. Moving all extremities. No slurred speech. CN 2 through 12 grossly intact Psych: calm, cooperative, normal affect Medical Decision Making Medical Decision Making [facility] Narrative: -my interpretation of EKG, normal sinus rhythm, heart rate 88, occasional PVCs, no ST segment depression or elevation, nonspecific T-wave inversion in lead 3, QTC 452. -my interpretation of labs, normal hematology and chemistry, LFTs normal troponin negative. Patient has been asymptomatic for hours, on the monitor we have not detected any arrhythmias -discussed with the patient that if she continues having arrhythmias, she needs to follow-up with the PCP and get a Holter monitor evaluation. Patient agrees with plan. Differential Diagnosis Differential Diagnoses: The differential diagnosis associated with the presentation includes (Anxiety, SVT, AFib) Admission/Observation Consideration of admission/observation: Escalation of care including admission/observation considered (Given patient's symptoms, admission/observation was considered) Lab Data [facility] Lab Attestation statement: I reviewed the patient's lab results. 10/09/23 01:48 10/09/23 01:48 Labs: Lab Results 10/09/23 10/09/23 Range/Units 01:48 02:39 WBC 7.9 (4.8-10.8) X10*3/uL RBC 4.05 L (4.20-5.50) X10*6/uL Hgb 12.4 (12.0-16.0) g/dl Hct 35.9 L (37.0-47.0) % MCV 88.6 (80.0-98.0) fL MCH 30.6 (27.0-33.0) pg MCHC 34.5 (31.0-35.0) g/dl RDW 13.3 (11.0-16.0) % Plt Count 226 (160-400) X10*3/uL MPV 9.3 L (9.4-12.3) fL Immature Gran % (Auto) 0.3 (0.0-0.4) % Neut % (Auto) 71.3 (45-73) % Lymph % (Auto) 21.5 (20-40) % [place] % (Auto) 6.1 (2-11) % Eos % (Auto) 0.5 (0-4) % Baso % (Auto) 0.3 (0-2) % Lymph # (Auto) 1.7 (1.2-4.9) X10*3/uL [place] # (Auto) 0.5 (0.1-1.2) X10*3/uL Eos # (Auto) 0.0 (0.0-0.4) X10*3/uL Baso # (Auto) 0.0 (0.0-0.2) X10*3/uL Abs Immat Gran (auto) 0.02 (0.00-0.03) X10*3/uL Absolute Neuts (auto) 5.7 (2.0-8.3) x10*3/uL Absolute Nucleated RBC 0.000 (0.0-0.012) X10*3/uL Nucleated RBC % (auto) 0.0 (0.0-0.2) /100WBC Sodium 140 (135-145) mmol/L Potassium 3.5 (3.3-5.1) mmol/L Chloride 103 (96-108) mmol/L Carbon Dioxide 29 (22-29) mmol/L Anion Gap 12 (12-20) BUN 12 (9-16) mg/dL Creatinine 0.73 (0.5-1.4) mg/dL Estim Creat Clear Calc 49.5 Estimated GFR > 60 POC Glucose 103 (60-115) mg/dL Random Glucose 116 H (60-115) mg/dL Calcium 10.0 (8.4-10.2) mg/dL Total Bilirubin 0.4 (0.0-1.0) mg/dL AST 22 (5-31) U/L ALT 17 (0-31) U/L Alkaline Phosphatase 75 (39-117) U/L Troponin I High Sens 4.0 (<3.5-17.0) ng/L Total Protein 7.4 (6.5-8.0) g/dL Albumin 4.2 (3.5-5.0) g/dL Critical Care Time Critical Care Time Critical Care Time: Yes Total Critical Care Time: 30 Attestation: I have personally provided critical care time. Time includes review of lab data, radiology results, discussion with consultants, and monitoring for potential decompensation. Intervention performed as documented. Discharge Plan Discharge Clinical Impression: Palpitations Patient Disposition: Home, Self-Care Instructions: Heart Palpitations (ED) Additional Instructions: Please follow-up with your primary care physician tomorrow. If you have any worsening or new symptoms, please return to the emergency room or call 911 Prescriptions: No Action acetaminophen 325 mg tablet 650 mg PO BID-TID PRN (Reason: fever or pain) Qty: 180 5RF (DME) blood-glucose meter Misc See Rx Instructions .ROUTE .MEDSUPPLY Qty: 1 0RF Rx Instructions: Accu-Chek Genie Plus (DME) blood-glucose meter [Accu-Chek Genie Plus Meter] Misc See Rx Instructions .ROUTE .MEDSUPPLY Qty: 1 0RF Rx Instructions: TEST 2 TIMES DAILY (DME) Accu-Chek Genie Plus test strp Strip See Rx Instructions .ROUTE .MEDSUPPLY Qty: 100 12RF Rx Instructions: As directed-In vitro twice a day ibuprofen 600 mg tablet 600 mg PO Q6-8H PRN (Reason: pain) 30 Days Qty: 90 0RF lancets [Accu-Chek Softclix Lancets] Misc 1 ea topical BID Qty: 100 5RF (DME) Long Panty Liners See Rx Instructions .Route .MEDSUPPLY Qty: 90 12RF Rx Instructions: As directed (DME) Wipes See Rx Instructions .Route .MEDSUPPLY Qty: 2 12RF Rx Instructions: As directed (DME) blood pressure test kit-large Kit See Rx Instructions .Route Qty: 1 0RF Rx Instructions: As directed hydroxyzine HCl 50 mg tablet 50 mg PO BID PRN (Reason: anxiety) 30 Days Qty: 60 3RF (DME) Accu-Chek Guide test strips Strip See Rx Instructions .ROUTE .MEDSUPPLY Qty: 50 3RF Rx Instructions: As directed- in vitro twice a day. (DME) blood-glucose meter [FreeStyle Lite Meter] Kit See Rx Instructions .Route Qty: 1 0RF Rx Instructions: As directed (DME) FreeStyle Lite Strips Strip See Rx Instructions .Route Qty: 50 3RF Rx Instructions: As directed atorvastatin 40 mg tablet 40 mg PO DAILY 90 Days Qty: 90 1RF metformin 500 mg tablet 500 mg PO BID Qty: 180 1RF cholecalciferol (vitamin D3) [Vitamin D3] 50 mcg (2,000 unit) capsule 50 mcg PO DAILY Qty: 90 3RF losartan 25 mg tablet 25 mg PO DAILY Qty: 90 3RF (DME) Accu-Chek Genie Plus test strp Strip See Rx Instructions Not Applicable BID Qty: 10 Rx Instructions: As directed multivitamin [One Daily Multivitamin] Tablet 1 tab PO DAILY aspirin [Adult Low Dose Aspirin] 81 mg tablet,delayed release (DR/EC) 81 mg PO DAILY folic acid 400 mcg tablet 0.4 mg PO DAILY ibuprofen 200 mg capsule 200 mg PO Q6H PRN Print Language: Turkish
[2023-10-09 04:28] VITALS: BP 142/70; PULSE 82; RESP 20; TEMP 36.6; O2SAT 97
[2023-10-09 04:31] VITALS: BP 142/70; PULSE 82; RESP 20; TEMP 36.6; O2SAT 97
== END 2023-10-09 04:35 | disposition home or self-care (01) ==
PROVIDERS: Emergency Provider Emergency Medicine; PCP Internal Medicine
DX: R00.2 Palpitations (principal); E11.9 Type 2 diabetes mellitus without complications; I10 Essential (primary) hypertension; E78.00 Pure hypercholesterolemia, unspecified; Z79.82 Long term (current) use of aspirin; Z79.02 Long term (current) use of antithrombotics/antiplatelets; Z79.84 Long term (current) use of oral hypoglycemic drugs
CPT/HCPCS: 36415; 80053; 82947; 84484; 85025; 93005; 99283; 99285

== ENCOUNTER → 2023-10-09 01:38 | Outpatient (BNV) | payer OTHER, SELFPAY | PROVIDERS: Emergency Provider Emergency Medicine; PCP Internal Medicine; Visit Provider Internal Medicine Cardiovascular Disease | DX: I45.19 Other right bundle-branch block (principal); R94.31 Abnormal electrocardiogram [ECG] [EKG] | CPT/HCPCS: 93010 ==

== ENCOUNTER 2023-10-14 10:29 | Outpatient (AMB) | payer OTHER, SELFPAY ==
[2023-10-14 10:36] VITALS: BP 116/64; PULSE 92; O2SAT 98; BMI 22.1
--- NOTE | 2023-10-14 10:36 | A.OFFPC_ITS ---
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 blood sugar diagnostic (FreeStyle Lite Strips) As directed blood-glucose meter Accu-Chek Genie Plus blood-glucose meter (Accu-Chek Genie Plus Meter) TEST 2 TIMES DAILY blood-glucose meter (FreeStyle Lite Meter kit) As directed cholecalciferol (vitamin D3) (Vitamin D3) 50 mcg PO DAILY folic acid 0.4 mg PO DAILY hydroxyzine HCl 50 mg PO BID PRN 30 days ibuprofen 600 mg PO Q6-8H PRN 30 days ibuprofen 200 mg PO Q6H PRN lancets (Accu-Chek Softclix Lancets) 1 ea topical BID [Long Panty Liners As directed] losartan 25 mg PO DAILY metformin 500 mg PO BID multivitamin (One Daily Multivitamin tablet) 1 tab PO DAILY Tobacco use date assessed: 06/18/23 Fall risk assessment: No Falls in past year Last assessed Fall Risk: 10/14/23 Dental Screening Dental Screen Date: 06/18/23 HPI [facility] 10/08 heart is racing suffers from panic attacks HPI Details 77-year-old female with past medical his tory of diabetes mellitus, hypertension, hypercholesterolemia, GERD, depression, anxiety with panic attacks last seen by Dr. Prieto June 2023 coming in for hospital follow up. In review of the notes, patient was seen in [facility] ED 10/09/2023 concerns of palpitations. EKG was unremarkable, labs with troponin were negative. Patient was cleared by ED and discharged home. Patient states when she went to the ER she felt like she could not talk and was having palpitations. She was diagnosed with panic attacks and has had these in the past and takes hydroxyzine as needed. She does mentioned she has several episodes of month palpitations and would like them to be evaluated. She does mentioned she has cut out drinking caffeine and coffee which has helped with her symptoms. Lastly she mentions bilateral eyes have had crusting and purulent discharge and her right eye has been itchy as well. [facility] Medical History Varicose veins of bilateral lower extremities with pain Overweight (BMI 25.0-29.9) Depression Anxiety Vitamin B12 deficiency Vitamin D deficiency Osteoarthritis GERD without esophagitis Intermittent palpitations Benign essential hypertension Pure hypercholesterolemia Diabetes mellitus High cholesterol Hypertension Diabetes Fall Arthritis Hypertension Diabetes mellitus, type 2 Trigger ring finger of right hand Trigger finger Surgical History History of colonoscopy History of uterine prolapse Family History Father Hypertension Mother Stroke Son Hypertension Son Hypertension Sister No problems noted. Brother No problems noted. Social History Household Members: None Housing: Apartment Alcohol intake: never Patient Tobacco Use Status: Never used Tobacco e-Cigarette/Vaping Use: Never Used Second Hand Smoke Exposure: No service: No Current occupational status: disabled Cognitive needs: No Hearing needs: No Vision needs: Yes Questionnaire Thrive Questionnaire Date Thrive assessed: 06/18/23 AUDIT C Alcohol Use Questionnaire (AUDIT-C) 1. How often do you have a drink containing alcohol?: Never 3. How often do you have six or more drinks on one occasion?: Never Total Score: 0 Score Reviewed/Action Taken: Yes TALI-7 AMB Questionnaire TALI-7 Date TALI - 7 assessed: 06/18/23 Source: Developed by Drs. Krzysztof Phelps, Ketty Wong, Florentino Aiken and colleagues, with an educational kat from [employer]. Review of Systems Const Denies body aches, Denies chills, Denies fever(s), Denies headache(s) and Denies poor appetite Eyes Reports as per HPI ENT Denies dizziness and Denies headache(s) Card Denies chest pain, Denies syncope, Denies edema, Reports irregular heart rhythm (Occasional palpitations), Denies lightheadedness and Denies dyspnea Resp Denies cough and Denies dyspnea GI Denies abdominal pain and Denies nausea Reports no additional complaints Musc Reports no additional complaints and Denies abnormal gait Skin/Breast Reports system reviewed and no additional complaints, except as documented Neuro Denies abnormal gait, Denies dizziness, Denies syncope and Denies headache(s) Psych Reports no additional complaints Physical exam (Primary Care) Vital Signs: Last Vital Signs Pulse 92 10/14/23 10:36 BP 116/64 10/14/23 10:36 Pulse Ox 98 10/14/23 10:36 Oxygen Delivery Method Room Air 10/14/23 10:36 BMI result Body Mass Index 22.1 Tobacco/Smoking Status: Tobacco use Status Tobacco use date assessed 06/18/23 10/14/23 10:37 Patient Tobacco Use Status Never used Tobacco 10/14/23 10:37 e-Cigarette/Vaping Use Never Used 10/14/23 10:37 Thrive Assessment: Date of Thrive Assessment Date Thrive assessed 06/18/23 10/14/23 10:37 Const General: cooperative, healthy appearing, comfortable and no acute distress Orientation/consciousness: patient oriented x3 HENMT Head: Yes normocephalic Ears: hearing grossly normal bilaterally General nose exam: Normal external nose present Eyes Other: Bilateral eyes have purulent discharge that reappears shortly after wiping them General: appearance normal, both eyes and all related structures Conjunctivae: conjunctival abnormal bilateral (Erythema) Neck Neck: Yes full ROM and Yes no lymphadenopathy Resp Effort & Inspection: normal respiratory effort Auscultation: clear to auscultation bilaterally, no crackles, no rales, no rhonchi and no wheezes Cardio Rate: regular rate Rhythm: regular rhythm Skin General skin exam: no rashes or lesions noted Neuro General: patient oriented x3 Gait exam (Neuro): Normal gait present Extrem General: Yes normal to inspection, Yes full ROM and No edema Psych Affect: normal affect Attitude: cooperative Insight: Good insight present (Psych) Judgement: Good judgement present (Psych) Assessment and Plan Assessment & Plan (1) Heart palpitations: Code(s): R00.2 - Palpitations Plan: We will order for 3 day Holter monitor to evaluate palpitations. Did inform patient that she does not have any episodes of palpitations during these 3 days the test may be inaccurate. We will continue to follow up as needed. We can consider cardiology referral if Holter monitor is positive or if palpitation episodes increased. 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 We will treat with erythromycin ointment bilaterally for 5 days. If symptoms persist or do not improve please reach out to our office for re-evaluation. Also prescribed allergy eyedrops as she mentions prior to the discharge she was having itchy red eyes. Plan This note was constructed using voice recognition software. While every effort has been made to ensure accuracy and associate team physician, still areas may have been included sometimes these areas may affect the content or meeting of the given symptoms. Total time spent caring for the patient today was 30 minutes. This includes time spent before the visit reviewing the chart, time spent during the visit, and time spent after the visit and documentation. Orders: Orders ECG 3 day holter monitor Today R00.2 - Palpitations Medications: New ketotifen fumarate 0.025%(0.035%) (Zaditor) administer at least 8 hours apart 1 drp ophthalmic (eye) BID PRN 5 mL 0RF allergy symptoms erythromycin 1 appl ophthalmic-Left QID 5 days 3.5 grams 0RF erythromycin bilateral eyes 1 appl ophthalmic (eye) QID 5 days 3.5 grams 0RF Coding Level of Care Code Est Pt Level 4 (80237) Diagnoses Heart palpitations R00.2 Bacterial conjunctivitis of both eyes H10.9; B96.89
== END 2023-10-14 11:22 | disposition home or self-care (01) ==
PROVIDERS: PCP Internal Medicine
DX: R00.2 Palpitations (principal); H10.9 Unspecified conjunctivitis; B96.89 Other specified bacterial agents as the cause of diseases classified elsewhere
CPT/HCPCS: 99214

== ENCOUNTER → 2023-10-23 13:27 | Outpatient (REF) | payer OTHER, SELFPAY ==
--- NOTE | 2023-10-23 13:29 | HM_ITS ---
Conclusion: 1. Patient was monitored for total period of 3 days 2. Baseline was normal sinus rhythm with average heart of 85 beats per minute 3. No significant pauses noted 4. Occasional PACs noted with total burden of 0.5% with 3 short runs of SVT, longest lasting 11 beats and the fastest at 190 beats per minute 5. Patient marked 1 event with symptom of palpitation correlating with PAC MTDD
== END ==
LOC: HO.CARD 13:27
PROVIDERS: PCP Internal Medicine
DX: R00.2 Palpitations (principal)
CPT/HCPCS: 93242

== ENCOUNTER → 2023-10-23 13:29 | Outpatient (BNV) | payer OTHER, SELFPAY | PROVIDERS: PCP Internal Medicine; Visit Provider Internal Medicine Cardiovascular Disease | DX: I49.1 Atrial premature depolarization (principal) | CPT/HCPCS: 93244 ==

== ENCOUNTER 2023-11-04 10:35 | Outpatient (AMB) | payer OTHER, SELFPAY ==
[2023-11-04 10:38] VITALS: BP 112/78; PULSE 79; O2SAT 96; BMI 22.0
--- NOTE | 2023-11-04 10:38 | A.OFFPC_ITS ---
Vital Signs 11/04/23 10:38 Height 5 ft 1 in Weight 116 lb 8 oz BMI 22.0 BP 112/78 Blood Pressure Location Lt brachial Position Sitting Pulse 79 Pulse Source Pulse Oximeter Pulse Oximetry (%) 96 Oxygen Delivery Method Room Air Intake Visit Reasons: Cataract 11/05 & 12/07 (A1C) Concrete Analyst Required: No Accompanied by: Self / Same As Patient Allergies Penicillins Allergy (Mild, Verified 11/04/23 11:03) NUMBNESS Medication List - Last Reconciled 11/04/23 by Maxx Prieto MD [Wipes As directed] acetaminophen 650 mg (2 x 325 mg) PO BID-TID PRN aspirin (Adult Low Dose Aspirin) 81 mg PO DAILY atorvastatin 40 mg PO DAILY 90 days blood pressure test kit-large As directed blood sugar diagnostic As directed blood sugar diagnostic (Accu-Chek Genie Plus test strips) As directed-In vitro twice a day blood sugar diagnostic (Accu-Chek Guide test strips) As directed- in vitro twice a day. blood sugar diagnostic (FreeStyle Lite Strips) As directed blood-glucose meter Accu-Chek Genie Plus blood-glucose meter (Accu-Chek Genie Plus Meter) TEST 2 TIMES DAILY blood-glucose meter (FreeStyle Lite Meter kit) As directed cholecalciferol (vitamin D3) (Vitamin D3) 50 mcg PO DAILY erythromycin 1 appl ophthalmic (eye) QID 5 days folic acid 0.4 mg PO DAILY hydroxyzine HCl 50 mg PO BID PRN 30 days ibuprofen 600 mg PO Q6-8H PRN 30 days ibuprofen 200 mg PO Q6H PRN ketotifen fumarate 0.025%(0.035%) (Zaditor) 1 drp ophthalmic (eye) BID PRN lancets (Accu-Chek Softclix Lancets) 1 ea topical BID [Long Panty Liners As directed] losartan 25 mg PO DAILY metformin 500 mg PO BID multivitamin (One Daily Multivitamin tablet) 1 tab PO DAILY Tobacco use date assessed: 11/04/23 Fall risk assessment: No Falls in past year Last assessed Fall Risk: 11/04/23 Dental Screening Dental Screen Date: 11/04/23 Did you have a dental visit in the last 12 months?: No Did you have a dental problem in the last 6 months where you did not have access to dental care?: No Was dental information given to patient?: Patient has dentist HPI Cataract 11/05 & 12/07 (A1C) HPI Details Patient comes in today at the request of Dr. Markell Lockett for a preoperative medical examination for clearance for surgery She is scheduled for cataract extraction with IOL under MAC of the right eye in a couple of days on 11/06/2023, followed by the same procedure on the left eye a few weeks later on 12/08/2023 Patient states that she currently feels okay She denies any headaches or dizziness Denies any chest pains, no SOB; still has occasional brief bouts of palpitations and would like to know if her recent extended Holter monitor showed any pertinent findings No nausea/vomiting, no abdominal pain No change in bowel habits noted States that she had some labs done last month but did not get her previously ordered labs done recently as she was advised that her regular follow up appointment today will be changed to a preop visit so she was not sure if she was supposed to still get her labs done or not [facility] Medical History Varicose veins of bilateral lower extremities with pain Overweight (BMI 25.0-29.9) Depression Anxiety Vitamin B12 deficiency Vitamin D deficiency Osteoarthritis GERD without esophagitis Intermittent palpitations Benign essential hypertension Pure hypercholesterolemia Diabetes mellitus High cholesterol Hypertension Diabetes Fall Arthritis Hypertension Diabetes mellitus, type 2 Trigger ring finger of right hand Trigger finger Surgical History History of colonoscopy History of uterine prolapse Family History Father Hypertension Mother Stroke Son Hypertension Son Hypertension Sister No problems noted. Brother No problems noted. Social History Household Members: None Housing: Apartment Alcohol intake: never Patient Tobacco Use Status: Never used Tobacco e-Cigarette/Vaping Use: Never Used Second Hand Smoke Exposure: No service: No Current occupational status: disabled Cognitive needs: No Hearing needs: No Vision needs: Yes Questionnaire PHQ-9 Over the last 2 weeks, how often have you been bothered by any of the following problems? 1. Little interest or pleasure in doing things: not at all 2. Feeling down, depressed, or hopeless: not at all 3. Trouble falling or staying asleep, or sleeping too much: not at all 4. Feeling tired or having little energy: not at all 5. Poor appetite or overeating: not at all 6. Feeling bad about yourself - or that you are a failure or have let yourself or your family down: not at all 7. Trouble concentrating on things, such as reading the newspaper or watching television: not at all 8. Moving or speaking so slowly that other people could have noticed. Or the opposite - being so fidgety or restless that you have been moving around a lot more than usual: not at all 9. Thoughts that you would be better off or of hurting yourself in some way: not at all Total score: 0 Depression Screening Interpretation: Negative Depression Screening Done: Yes 55353 - PHQ-9 Billing: Yes Source: Developed by Drs. Krzysztof Phelps, Ketty Wong, Florentino Aiken and colleagues, with an educational kat from [employer]. Thrive Questionnaire Date Thrive assessed: 11/04/23 I am a: Patient What is your living situation today?: I have a steady place to live Within the past 12 months, did the food you bought not last and you didn't have the money to get more?: Never true Within the past 12 months, did you worry whether your food would run out before you got money to buy more?: Never true Do you have trouble paying for medicines?: No Do you have trouble getting transportation to medical appointments?: No Do you have trouble paying your heating and electricity bill?: No Do you have trouble taking care of your child, family member or friend?: No Do you have trouble with day-to-day activities such as bathing, preparing meals, shopping, managing finances, etc.?: No Are you currently unemployed and looking for a job?: No Are you interested in more education?: No Please select the resources that you would like help with: None Currently or been in a relationship where the following occur: No concerns reported THRIVE Score: 0 AUDIT C Alcohol Use Questionnaire (AUDIT-C) 1. How often do you have a drink containing alcohol?: Never 3. How often do you have six or more drinks on one occasion?: Never Total Score: 0 Score Reviewed/Action Taken: Yes TALI-7 AMB Questionnaire TALI-7 Date TALI - 7 assessed: 11/04/23 Feeling nervous, anxious, or on edge: 0 = Not at all Not being able to stop or control worryin = Not at all Worrying too much about different things: 0 = Not at all Trouble relaxin = Not at all Being so restless that it is hard to sit still: 0 = Not at all Becoming easily annoyed or irritable: 0 = Not at all Feeling afraid as if something awful might happen: 0 = Not at all Total TALI-7 score (0-4 normal; 5-9 mild; 10-14 moderate; 15-21 severe): 0 Source: Developed by Drs. Krzysztof Phelps, Ketty Wong, Florentino Aiken and colleagues, with an educational kat from [employer]. Review of Systems Const Denies chills, Denies fatigue, Denies fever(s) and Denies headache(s) Eyes Reports blurry vision (in both eyes) ENT Denies dysphagia, Denies dizziness, Denies otalgia, Denies headache(s), Reports hearing loss (now has hearing aids), Denies odynophagia and Denies sore throat Card Denies chest pain, Denies chest pain with activity, Denies irregular heart rhythm, Reports palpitations (occasionally - see HPI) and Denies dyspnea Resp Denies cough and Denies dyspnea GI Denies abdominal pain, Denies constipation, Denies dysphagia, Denies heartburn, Denies diarrhea, Denies nausea, Denies odynophagia and Denies vomiting Denies difficulty voiding, Denies nocturia, Denies dysuria and Denies urinary urgency Musc Denies back pain, Reports arthralgias (in the right hip, on and off; base of right thumb/wrist; left shoulder) and Denies joint swelling Skin/Breast Denies rash Neuro Denies dizziness and Denies headache(s) Psych Reports anxiety (on and off) and Denies depression Endo Denies fatigue and Reports palpitations (occasionally - see HPI) Physical exam (Primary Care) Vital Signs: Last Vital Signs Pulse 79 11/04/23 10:38 BP 112/78 11/04/23 10:38 Pulse Ox 96 11/04/23 10:38 Oxygen Delivery Method Room Air 11/04/23 10:38 BMI result Body Mass Index 22.0 Tobacco/Smoking Status: Tobacco use Status Tobacco use date assessed 11/04/23 11/04/23 10:40 Patient Tobacco Use Status Never used Tobacco 11/04/23 10:40 e-Cigarette/Vaping Use Never Used 11/04/23 10:40 PHQ-9: PHQ-9 Score PHQ-9: Total score 0 11/04/23 11:08 Depression Screening Interpretation: Negative Thrive Assessment: Date of Thrive Assessment Date Thrive assessed 11/04/23 11/04/23 10:40 Currently or been in a relationship where the following occur: No concerns reported Const General: no acute distress and alert HENMT Ears: TM's normal bilaterally and EAC's normal Throat: Yes posterior oropharynx normal and Yes tonsils normal (no TP congestion noted) Neck Neck: Yes no lymphadenopathy and Yes supple Thyroid: Thyroid normal Resp Auscultation: clear to auscultation bilaterally, no rales and no wheezes Cardio Rate: regular rate Rhythm: regular rhythm Heart sounds: no murmurs GI Palpation (GI): Soft to palpation and nontender Auscultation: normal bowel sounds General: Yes no CVA tenderness Back/Spine/Pelvis Back: no CVA tenderness Skin Rashes: no rashes Extrem Other: (+) scattered prominent varicose veins on both lower extremities; some are slightly tender on palpation General: Yes no clubbing, cyanosis or edema Right upper extremity: elbow/forearm Details: tenderness (over the muscles on the radial side of the forearm), wrist Details: tenderness; no swelling and Extremity exam: right hand Details: tenderness Location: of the thumb Location: at the MCP joint and no swelling Results AMB Hemoglobin A1c AMB Hemoglobin A1c 5.7 % Last Edit by AYAKA Ordonez on 11/04/23 10 :53 Results Reviewed Results Reviewed: Laboratory Last Values Hgb A1c (Clinic) 5.7 % (4.0-6.0) 11/04/23 10:40 Laboratory Tests 10/09/23 11/04/23 01:48 10:40 WBC 7.9 Hgb 12.4 Hct 35.9 L Plt Count 226 Sodium 140 Potassium 3.5 Creatinine 0.73 Estimated GFR > 60 Random Glucose 116 H Hgb A1c (Clinic) 5.7 Calcium 10.0 AST 22 ALT 17 Assessment and Plan Assessment & Plan (1) Preoperative examination: Code(s): Z01.818 - Encounter for other preprocedural examination Plan: Patient currently presents with acceptable risks for planned low cardiac-risk procedure Results of her labs done last month reviewed and discussed with patient - results are attached to his report (see above) for review (2) Cataracts, bilateral: Code(s): H26.9 - Unspecified cataract Qualifiers: Age-related cataract type: unspecified Cataract type: age-related Qualified Code(s): H25.9 - Unspecified age-related cataract Plan: She is scheduled for cataract extraction with IOL under MAC of the right eye in a couple of days on 11/06/2023, followed by the same procedure on the left eye a few weeks from now on 12/08/[address] Markell Lockett of [facility] (3) Pure hypercholesterolemia: Code(s): E78.00 - Pure hypercholesterolemia, unspecified Plan: Reinforced low cholesterol diet Continue Atorvastatin 40 mg QD Will recheck her labs and fasting lipids in 4 months for follow up (4) Diabetes mellitus: Code(s): E11.9 - Type 2 diabetes mellitus without complications Qualifiers: Diabetes mellitus type: type 2 Diabetes mellitus manager intermediate insulin use: without manager intermediate use Diabetes mellitus complication status: without complication Qualified Code(s): E11.9 - Type 2 diabetes mellitus without complications Plan: Her in-office HgbA1c today is at 5.7% (HgbA1c was also previously at 5.7% a few months ago) - goal is <7.0% Reinforced diabetic diet Continue Metformin 500 mg BID (5) Benign essential hypertension: Code(s): I10 - Essential (primary) hypertension Plan: Reinforced low sodium diet - goal is systolic BP of at least 130 to 140 mm or less Continue Losartan 25 mg QD (6) Intermittent palpitations: Code(s): R00.2 - Palpitations Plan: Holter monitor done a couple of years ago showed sinus rhythm with occasional PACs; echocardiogram done back in July 2017 came out normal She was taking Metoprolol ER 25 mg QD previously for rate control but patient self-discontinued her Rx several months ago as she did not feel that she needed to continue on it - states that she has not had any recurrence of symptoms since stopping Metoprolol ER until recently She was sent for an extended Holter last month for further evaluation of her symptoms - this still showed (+) occasional PACs with a total burden of 0.5% Patient did dar 1 event that correlated with PACs She is reassured again of the benign nature of PACs and advised that if she feels that her palpitations are continuing to be bothersome for her, then she can consider starting back on low dose Metoprolol ER to help alleviate her symptoms (7) GERD without esophagitis: Code(s): K21.9 - Gastro-esophageal reflux disease without esophagitis Plan: Dietary restrictions reinforced (8) Osteoarthritis: Code(s): M19.90 - Unspecified osteoarthritis, unspecified site Qualifiers: Osteoarthritis location: unspecified site Osteoarthritis type: primary Qualified Code(s): M19.91 - Primary osteoarthritis, unspecified site Plan: Continue Acetaminophen 325 mg 2 tablets 2 to 3 times a day as needed for joint pain Her left knee pain has improved a lot with cortisone injection and physical therapy X-rays of the right hip done a few months ago revealed (+) mild OA changes; states that her right hip pain has subsided a lot since X-rays of the right hand done in May 2022 also revealed (+) mild degenerative changes of the hands Have recommended to go to physical therapy if her hip pain and finger/hand pain flare up again; patient will call for referral if needed Follow-up with rheumatology and orthopedics as scheduled (9) Vitamin D deficiency: Code(s): E55.9 - Vitamin D deficiency, unspecified Plan: Continue Vitamin D3 1000 units QD (10) Vitamin B12 deficiency: Code(s): E53.8 - Deficiency of other specified B group vitamins Plan: Continue Vitamin B12 tablets 1000 mcg QD (11) Varicose veins of bilateral lower extremities with pain: Code(s): I83.813 - Varicose veins of bilateral lower extremities with pain Plan: S/P EVLT of the left lower extremity with (+) symptomatic improvement Follow up with vascular surgery as scheduled - she used to see Dr. Teresa Yip but was advised recently that Dr. Yip retired and someone else from [facility] will be taking over for him and will be seeing her at her next appointment (12) Anxiety: Code(s): F41.9 - Anxiety disorder, unspecified Plan: Continue Hydroxyzine 50 mg Q HS PRN Patient also used to take Buspirone 10 mg BID but it looks like she self- discontinued this a while back and she declines offer to start her back on Rx at this time Due to her recent anxiety and panic attack episode a few months ago, she was referred to psychiatry for further evaluation and management (13) Depression: Code(s): F32.9 - Major depressive disorder, single episode, unspecified Qualifiers: Depression Type: major depressive disorder Major depression recurrence: recurrent Active/Remission status: currently active Major depression episode severity: unspecified Qualified Code(s): F33.9 - Major depressive disorder, recurrent, unspecified Plan: Continue Fluoxetine 10 mg QD Follow-up with Psychiatry as scheduled Plan Patient currently appears medically optimized and has no contraindications to undergo cataract surgeries on both eyes as planned - is medically cleared for surgery Follow up in 4 months Orders: Orders UA CC w/rflx Micro + Cult 4 Months R30.0 - Dysuria Microalbumin, Random (w Creat) 4 Months E11.9 - Type 2 diabetes mellitus without complications Vitamin D 25-OH Total 4 Months E55.9 - Vitamin D deficiency, unspecified AMB Hemoglobin A1c Today Z13.9 - Encounter for screening, unspecified Hemoglobin A1c 4 Months E11.9 - Type 2 diabetes mellitus without complications Complete Blood Count Auto Diff 4 Months D64.9 - Anemia, unspecified Lipid Panel 4 Months E78.00 - Pure hypercholesterolemia, unspecified Comprehensive [place]. Panel Fast 4 Months E78.00 - Pure hypercholesterolemia, unspecified TSH reflex Free T4 4 Months E78.00 - Pure hypercholesterolemia, unspecified Coding Level of Care Code Est Pt Level 4 (13472) Diagnoses Preoperative examination Z01.818 Age-related cataract of both eyes, unspecified age-related cataract type H25.9 Age-related cataract type: unspecified Cataract type: age-related Pure hypercholesterolemia E78.00 Type 2 diabetes mellitus without complication, without long-term current use of insulin E11.9 Diabetes mellitus type: type 2 Diabetes mellitus longterm insulin use: without longterm use Diabetes mellitus complication status: without complication Benign essential hypertension I10 Intermittent palpitations R00.2 GERD without esophagitis K21.9 Primary osteoarthritis, unspecified site M19.91 Osteoarthritis location: unspecified site Osteoarthritis type: primary Vitamin D deficiency E55.9 Vitamin B12 deficiency E53.8 Varicose veins of bilateral lower extremities with pain I83.813 Anxiety F41.9 Episode of recurrent major depressive disorder, unspecified depression episode severity F33.9 Depression Type: major depressive disorder Major depression recurrence: recurrent Active/Remission status: currently active Major depression episode severity: unspecified
== END 2023-11-04 11:20 | disposition home or self-care (01) ==
PROVIDERS: PCP Internal Medicine; Visit Provider Internal Medicine
DX: Z01.818 Encounter for other preprocedural examination (principal); E11.9 Type 2 diabetes mellitus without complications; F33.9 Major depressive disorder, recurrent, unspecified; H25.9 Unspecified age-related cataract; E78.00 Pure hypercholesterolemia, unspecified; I10 Essential (primary) hypertension; R00.2 Palpitations; K21.9 Gastro-esophageal reflux disease without esophagitis; M19.91 Primary osteoarthritis, unspecified site; E55.9 Vitamin D deficiency, unspecified; E53.8 Deficiency of other specified B group vitamins; I83.813 Varicose veins of bilateral lower extremities with pain
CPT/HCPCS: 83036; 99214

== ENCOUNTER 2024-03-04 08:26 | Outpatient (REF) | payer OTHER, SELFPAY ==
[2024-03-04 08:50] LABS: MANUAL DIFF FLAG NO
[2024-03-04 09:07] LABS: Basophils Percent Auto 0.4 % (0-2); Eosinophils Absolute Auto 0.1 X10*3/uL (0.0-0.4); Eosinophils Percent Auto 1.5 % (0-4); Hematocrit 40.6 % (37.0-47.0); Hemoglobin 13.4 g/dl (12.0-16.0); Imm Gran Abs Auto 0.01 X10*3/uL (0.00-0.03); Imm Gran Pct Auto 0.2 % (0.0-0.4); Lymphocytes Absolute Auto 1.9 X10*3/uL (1.2-4.9); Mean Corpuscular Hemoglobin 30.2 pg (27.0-33.0); Mean Corpuscular Volume 91.6 fL (80.0-98.0); Mean Platelet Volume 10.1 fL (9.4-12.3); Monocytes Absolute Auto 0.4 X10*3/uL (0.1-1.2); Neutrophils Percent Auto 55.9 % (45-73); Platelet Count 264 X10*3/uL (160-400); Red Blood Count 4.43 X10*6/uL (4.20-5.50); Red Cell Distribution Width 13.4 % (11.0-16.0); White Blood Count 5.3 X10*3/uL (4.8-10.8)
[2024-03-04 09:19] LABS: Appearance Urine Clear; Color Urine Yellow; Glucose Urine UA Negative (Negative); Leukocyte Esterase Urine Moderate (2+) (Negative); Nitrite Urine Negative (Negative); PH 5.5 (5.0-9.0); Specific Gravity - Urine 1.015 (1.005-1.025); UMIC TRIGGER UACC YES; Urine Blood Negative (Negative); Urine Ketones Negative (Negative); Urine Protein Negative (Neg-Trace)
[2024-03-04 09:20] LABS: Estimated Average Glucose 117 mg/dL; Hemoglobin A1C 135.9721 umol/L; Hemoglobin A1c % 5.7 % (<6.0); Total Hemoglobin (HGBA1C) 3529.4876 umol/L
[2024-03-04 09:24] LABS: Bacteria Urine None Seen (None Seen); Hyaline Casts Urine 0-2 /LPF (0-2); RBC Urine 0-2 /HPF (0-2); Squamous Epithelial Cell Urine 0-2 /HPF (0-2); UACC Culture Trigger YES
[2024-03-04 09:44] LABS: Alanine Aminotransferase 24 U/L (0-31); Albumin Level 4.3 g/dL (3.5-5.0); Alkaline Phosphatase 72 U/L (39-117); Anion Gap 11 (12-20); Aspartate Amino Transferase 31 U/L (5-31); Bilirubin Total 0.6 mg/dL (0.0-1.0); Blood Urea Nitrogen 11 mg/dL (9-16); Calcium 9.8 mg/dL (8.4-10.2); Carbon Dioxide 29 mmol/L (22-29); Chloride 104 mmol/L (96-108); Cholesterol 166 mg/dL (<200); Estimated Glomerular Filt Rate > 60; Glucose Fasting 107 mg/dL (60-99); HDL Cholesterol 69 mg/dL (>40); LDL Cholesterol Calculated 82 mg/dL (<100); Potassium 4.4 mmol/L (3.3-5.1); Sodium 140 mmol/L (135-145); Total Protein 7.9 g/dL (6.5-8.0); Triglycerides 76 mg/dL (<150)
[2024-03-04 09:52] LABS: TSH reflex Free T4 3.17 uIU/mL (0.32-4.0); Vitamin D 25-OH Total 55.3 ng/mL (>30)
[2024-03-04 10:04] LABS: Creatinine Urine 124.37 mg/dL; Microalbum/Creatinine Ratio Ur 15.2 ug/mg cr (<30)
[2024-03-04 10:13] LABS: Folate 18.3 ng/mL (> or = 4.0); Vitamin B12 386 pg/mL (200-900)
== END 2024-03-04 08:27 | disposition home or self-care (01) ==
LOC: HO.LAB 08:26
PROVIDERS: PCP Internal Medicine; Visit Provider Internal Medicine
DX: D64.9 Anemia, unspecified (principal); E55.9 Vitamin D deficiency, unspecified; E53.8 Deficiency of other specified B group vitamins; E11.9 Type 2 diabetes mellitus without complications; E78.00 Pure hypercholesterolemia, unspecified; R30.0 Dysuria
CPT/HCPCS: 36415; 80053; 80061; 81001; 82043; 82306; 82570; 82607; 82746; 83036; 84443; 85025; 87086

== ENCOUNTER 2024-03-08 09:26 | Outpatient (AMB) | payer OTHER, SELFPAY ==
[2024-03-08 09:39] VITALS: BP 128/84; PULSE 84; TEMP 36.6; O2SAT 97; BMI 21.8
--- NOTE | 2024-03-08 09:39 | A.OFFPC_ITS ---
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 blood sugar diagnostic (FreeStyle Lite Strips) As directed blood-glucose meter Accu-Chek Genie Plus blood-glucose meter (Accu-Chek Genie Plus Meter) TEST 2 TIMES DAILY blood-glucose meter (FreeStyle Lite Meter kit) As directed cholecalciferol (vitamin D3) (Vitamin D3) 50 mcg PO DAILY folic acid 0.4 mg PO DAILY hydroxyzine HCl 50 mg PO BID PRN 30 days ibuprofen 600 mg PO Q6-8H PRN 30 days ibuprofen 200 mg PO Q6H PRN ketotifen fumarate 0.025%(0.035%) (Zaditor) 1 drp ophthalmic (eye) BID PRN lancets (Accu-Chek Softclix Lancets) 1 ea topical BID [Long Panty Liners As directed] losartan 25 mg PO DAILY metformin 500 mg PO BID multivitamin (One Daily Multivitamin tablet) 1 tab PO DAILY Tobacco use date assessed: 03/08/24 Fall risk assessment: No Falls in past year Last assessed Fall Risk: 03/08/24 Dental Screening Dental Screen Date: 03/08/24 Did you have a dental visit in the last 12 months?: No Did you have a dental problem in the last 6 months where you did not have access to dental care?: No Was dental information given to patient?: No HPI 4mth f/u HPI Details Patient is a 78 year old female with a significant past medical history of of hypertension, p.o. hypercholesterolemia, osteoarthritis, and diabetes mellitus The patient is presenting for follow-up appointment Patient had labs done few days ago and would like to know the results She reports that ketotifen fumarate 0.025% and her eyes still get itching at times, she is wondering if this medication could be refilled She is also requesting more glucometer strips because she tests her blood sugar twice every day and now the pharmacy is sending her less than before She reports that there is nothing new going on with her. She reports that she had varicose veins in her left leg taken care of and now the ones in the right leg acting up She reports that she is planning on making appt at the vein clinic to get it taking care of soon The patient denies chest pain, sob, heart palpitation, dizziness, abdominal pain or changes in bowel habits PFSH Medical History Varicose veins of bilateral lower extremities with pain Overweight (BMI 25.0-29.9) Depression Anxiety Vitamin B12 deficiency Vitamin D deficiency Osteoarthritis GERD without esophagitis Intermittent palpitations Benign essential hypertension Pure hypercholesterolemia Diabetes mellitus High cholesterol Hypertension Diabetes Fall Arthritis Hypertension Diabetes mellitus, type 2 Trigger ring finger of right hand Trigger finger Surgical History History of colonoscopy History of uterine prolapse Family History Father Hypertension Mother Stroke Son Hypertension Son Hypertension Sister No problems noted. Brother No problems noted. Social History Household Members: None Housing: Apartment Alcohol intake: never Patient Tobacco Use Status: Never used Tobacco e-Cigarette/Vaping Use: Never Used Second Hand Smoke Exposure: No service: No Current occupational status: disabled Cognitive needs: No Hearing needs: No Vision needs: Yes Questionnaire PHQ-9 Over the last 2 weeks, how often have you been bothered by any of the following problems? 1. Little interest or pleasure in doing things: not at all 2. Feeling down, depressed, or hopeless: not at all 3. Trouble falling or staying asleep, or sleeping too much: not at all 4. Feeling tired or having little energy: not at all 5. Poor appetite or overeating: not at all 6. Feeling bad about yourself - or that you are a failure or have let yourself or your family down: not at all 7. Trouble concentrating on things, such as reading the newspaper or watching television: not at all 8. Moving or speaking so slowly that other people could have noticed. Or the opposite - being so fidgety or restless that you have been moving around a lot more than usual: not at all 9. Thoughts that you would be better off or of hurting yourself in some way: not at all Total score: 0 Depression Screening Interpretation: Negative Depression Screening Done: Yes 01722 - PHQ-9 Billing: Yes Source: Developed by Drs. Krzysztof Phelps, Ketty Wong, Florentino Aiken and colleagues, with an educational kat from [employer]. Thrive Questionnaire Date Thrive assessed: 03/08/24 I am a: Patient What is your living situation today?: I have a steady place to live Within the past 12 months, did the food you bought not last and you didn't have the money to get more?: Never true Within the past 12 months, did you worry whether your food would run out before you got money to buy more?: Never true Do you have trouble paying for medicines?: No Do you have trouble getting transportation to medical appointments?: No Do you have trouble paying your heating and electricity bill?: No Do you have trouble taking care of your child, family member or friend?: No Do you have trouble with day-to-day activities such as bathing, preparing meals, shopping, managing finances, etc.?: No Are you currently unemployed and looking for a job?: No Are you interested in more education?: No Please select the resources that you would like help with: None Currently or been in a relationship where the following occur: No concerns reported THRIVE Score: 0 AUDIT C Alcohol Use Questionnaire (AUDIT-C) 1. How often do you have a drink containing alcohol?: Never 3. How often do you have six or more drinks on one occasion?: Never Total Score: 0 Score Reviewed/Action Taken: Yes TALI-7 AMB Questionnaire TALI-7 Date TALI - 7 assessed: 03/08/24 Feeling nervous, anxious, or on edge: 0 = Not at all Not being able to stop or control worryin = Not at all Worrying too much about different things: 0 = Not at all Trouble relaxin = Not at all Being so restless that it is hard to sit still: 0 = Not at all Becoming easily annoyed or irritable: 0 = Not at all Feeling afraid as if something awful might happen: 0 = Not at all Total TALI-7 score (0-4 normal; 5-9 mild; 10-14 moderate; 15-21 severe): 0 Source: Developed by Drs. Krzysztof Phelps, Ketty Wong, Florentino Aiken and colleagues, with an educational kat from [employer]. TALI-7 Assessment Billing TALI-7 Assessment Tool: TALI-7 Assessment 17277 Review of Systems Const Details: Const Denies chills, Denies fatigue, Denies fever(s), Denies headache(s) and Denies weakness ENT Denies dizziness and Denies headache(s) Card Denies chest pain, Denies lightheadedness, Denies dyspnea and Denies other (Palpitations) Resp Denies cough, Denies dyspnea, Denies wheezing and Denies other ( shortness of breath) GI Denies abdominal pain, Denies melena, Denies hematochezia, Denies change in bowel habits, Denies dyspepsia and Denies nausea Denies hematuria and Denies dysuria Musc Denies abnormal gait, reports right leg myalgias and numbness, Denies arthralgias, Denies tingling Skin/Breast Denies rash, Denies unusual bruising and Denies wounds Neuro Denies abnormal gait, Denies dizziness, Denies headache(s), Denies memory loss, Denies numbness, Denies Sensory deficit (Neuro), Denies tingling and Denies weakness Psych Reports recurrent anxiety, Denies depression, Denies memory loss Endo Denies cold intolerance, Denies fatigue, Denies heat intolerance, Denies polydipsia and Denies polyuria Aller/Immun Denies wheezing Physical exam (Primary Care) Vital Signs: Last Vital Signs Temp 97.8 F 03/08/24 09:39 Pulse 84 03/08/24 09:39 BP 128/84 03/08/24 09:39 Pulse Ox 97 03/08/24 09:39 Oxygen Delivery Method Room Air 03/08/24 09:39 BMI result Body Mass Index 21.8 Tobacco/Smoking Status: Tobacco use Status Tobacco use date assessed 03/08/24 03/08/24 09:41 Patient Tobacco Use Status Never used Tobacco 03/08/24 09:41 e-Cigarette/Vaping Use Never Used 03/08/24 09:41 PHQ-9: PHQ-9 Score PHQ-9: Total score 0 03/08/24 19:27 Depression Screening Interpretation: Negative Thrive Assessment: Date of Thrive Assessment Date Thrive assessed 03/08/24 03/08/24 09:41 Currently or been in a relationship where the following occur: No concerns reported Const Other: General: no acute distress and well developed Nutritional Appearance: well nourished Orientation/consciousness: patient oriented x3 HENMT Head: Yes normocephalic and Yes atraumatic Eyes General: appearance normal, both eyes and all related structures Pupils: Equal, round and reactive pupils present EOM: EOMs intact bilaterally Resp Effort & Inspection: normal respiratory effort Auscultation: clear to auscultation bilaterally Cardio Rate: regular rate Rhythm: regular rhythm Heart sounds: S1 normal heart sound present, S2 normal heart sound present, no gallops, no murmurs and no rubs GI Palpation (GI): No Abdominal aortic bruit present, Soft to palpation, nontender, No hepatosplenomegaly present and No Rebound tenderness present Auscultation: normal bowel sounds General: Yes no CVA tenderness Back/Spine/Pelvis Back: no CVA tenderness Cervical Spine: cervical ROM normal and No Cervical spine tenderness Thoracic/Lumbar Spine: thoraco-lumbar ROM normal, No pain with thoraco-lumbar ROM, No thoracic spinal tenderness and No lumbar spinal tenderness Extrem General: Declines assessment: Reports that she has compression stockings on Skin General: warm and dry. Normal skin color. Normal skin turgor Lesions: no lesions Rashes: no rashes Trauma: no lacerations or abrasions Wounds: no wounds Nails: normal Neuro General: patient oriented x3, gait normal and no focal neuro deficit Cranial nerves: Yes Equal, round and reactive pupils present Cognition (Neuro): normal cognition Gait exam (Neuro): Normal gait present Sensory Exam: No Sensory deficit (Neuro) Psych Appearance: grossly normal Affect: normal affect Attitude: cooperative Thought process: Normal thought process present Results Reviewed Results Reviewed: Laboratory Tests 03/04/24 03/04/24 08:41 08:48 WBC 5.3 RBC 4.43 Hgb 13.4 Hct 40.6 Plt Count 264 Sodium 140 Potassium 4.4 D Chloride 104 Carbon Dioxide 29 Anion Gap 11 L BUN 11 Creatinine 0.74 Estimated GFR > 60 Fasting Glucose 107 H Estimat Average Glucose 117 Hemoglobin A1c % 5.7 AST 31 ALT 24 Alkaline Phosphatase 72 Triglycerides 76 Cholesterol 166 LDL Cholesterol, Calc 82 HDL Cholesterol 69 Vitamin B12 386 25-OH Vitamin D Total 55.3 Folate 18.3 TSH 3.17 Urine Color Yellow Urine Appearance Clear Urine pH 5.5 Ur Specific [place] 1.015 Urine Protein Negative Urine Glucose (UA) Negative Urine Ketones Negative Urine Blood Negative Urine Nitrite Negative Ur Leukocyte Esterase Moderate (2+) H Urine RBC 0-2 Urine WBC 6-10 H Urine Creatinine 124.37 Urine Microalbumin 19.0 Microalb/Creat Ratio 15.2 Coding Level of Care Code Est Pt Level 4 (50848) Diagnoses Benign essential hypertension I10 Pure hypercholesterolemia E78.00 Type 2 diabetes mellitus without complication, without long-term current use of insulin E11.9 Diabetes mellitus complication status: without complication Diabetes mellitus senior living insulin use: without senior living use Diabetes mellitus type: type 2 Intermittent palpitations R00.2 GERD without esophagitis K21.9 Primary osteoarthritis of left knee M17.12 Osteoarthritis type: primary Varicose veins of bilateral lower extremities with pain I83.813 Vitamin B12 deficiency E53.8 Vitamin D deficiency E55.9 Anxiety F41.9 Panic attack F41.0 Additional Codes TALI-7 Assessment Billing - TALI-7 Assessment Tool: TALI-7 Assessment 76604 ([id number]) PHQ-9 - 31122 - PHQ-9 Billing: Yes ([id number]) Assessment & Plan Assessment & Plan (1) Benign essential hypertension: Code(s): I10 - Essential (primary) hypertension Category: Medical Plan: Reinforced DASH diet continues losartan 25 mg daily (2) Pure hypercholesterolemia: Code(s): E78.00 - Pure hypercholesterolemia, unspecified Category: Medical Plan: Results of her labs done a few days ago reviewed and discussed with patient reinforced a diet low in cholesterol continues atorvastatin 40 mg daily Will recheck labs in 4 months for follow appt (3) Diabetes mellitus: Code(s): E11.9 - Type 2 diabetes mellitus without complications Category: Medical Qualifiers: Diabetes mellitus complication status: without complication 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 (5) GERD without esophagitis: Code(s): K21.9 - Gastro-esophageal reflux disease without esophagitis Category: Medical Plan: reinforced dietary restriction and meals schedule-void eating close to bedtime- allowing 3-4 hours after eating before attempting to rest. (6) Osteoarthritis of left knee: Code(s): M17.12 - Unilateral primary osteoarthritis, left knee Category: Medical Qualifiers: Osteoarthritis type: primary Qualified Code(s): M17.12 - Unilateral primary osteoarthritis, left knee Plan: Continue Ibuprofen 200 mg Q6hrs prn and tylenol prn modified activity, it is important to stay active as tolerated (7) Varicose veins of bilateral lower extremities with pain: Code(s): I83.813 - Varicose veins of bilateral lower extremities with pain Category: Medical Plan: Reports S/P EVLT of the left lower extremity with (+) symptomatic improvement Reports that her right left leg is now similar to what her left leg was and she is in the process of making an appt Follow up with vascular surgery as scheduled (8) Vitamin B12 deficiency: Code(s): E53.8 - Deficiency of other specified B group vitamins Category: Medical Plan: encouraged foods rich in vitamin b12 (9) Vitamin D deficiency: Code(s): E55.9 - Vitamin D deficiency, unspecified Category: Medical Plan: Continue cholecalciferol 50 mcg daily (10) Anxiety: Code(s): F41.9 - Anxiety disorder, unspecified Category: Medical Plan: Continue hydroxyzine 50 mg bid PRN Denies si/hi (11) Panic attack: Code(s): F41.0 - Panic disorder [episodic paroxysmal anxiety] Category: Medical Plan: Continue Hydroxyzine 50 mg BID prn Reports that she takes the medication when she feels the anxiety is coming on and this works well for her. She is able to mitigate the panic attack by treating the anxiety. Plan The patient to follow up in 4 months or sooner for any concerns I personally spent 34 minutes reviewing the chart, caring for the patient and documenting after the visit. Orders: Orders Complete Blood Count Auto Diff 4 Months E53.8 - Deficiency of other specified B group vitamins, E55.9 - Vitamin D deficiency, unspecified, K21.9 - Gastro- esophageal reflux disease without esophagitis, R00.2 - Palpitations, I10 - Essential (primary) hypertension, E11.9 - Type 2 diabetes mellitus without complications, E78.00 - Pure hypercholesterolemia, unspecified Hemoglobin A1c 4 Months E53.8 - Deficiency of other specified B group vitamins, E55.9 - Vitamin D deficiency, unspecified, K21.9 - Gastro-esophageal reflux disease without esophagitis, R00.2 - Palpitations, I10 - Essential (primary) hypertension, E11.9 - Type 2 diabetes mellitus without complications, E78.00 - Pure hypercholesterolemia, unspecified TSH reflex Free T4 4 Months E53.8 - Deficiency of other specified B group vitamins, E55.9 - Vitamin D deficiency, unspecified, K21.9 - Gastro-esophageal reflux disease without esophagitis, R00.2 - Palpitations, I10 - Essential (primary) hypertension, E11.9 - Type 2 diabetes mellitus without complications, E78.00 - Pure hypercholesterolemia, unspecified Vitamin B12 and Folate 4 Months E53.8 - Deficiency of other specified B group vitamins, E55.9 - Vitamin D deficiency, unspecified, K21.9 - Gastro-esophageal reflux disease without esophagitis, R00.2 - Palpitations, I10 - Essential (primary) hypertension, E11.9 - Type 2 diabetes mellitus without complications, E78.00 - Pure hypercholesterolemia, unspecified Comprehensive [place]. Panel Fast 4 Months E53.8 - Deficiency of other specified B group vitamins, E55.9 - Vitamin D deficiency, unspecified, K21.9 - Gastro-eso phageal reflux disease without esophagitis, R00.2 - Palpitations, I10 - Essential (primary) hypertension, E11.9 - Type 2 diabetes mellitus without complications, E78.00 - Pure hypercholesterolemia, unspecified UA CC w/rflx Micro + Cult 4 Months E53.8 - Deficiency of other specified B group vitamins, E55.9 - Vitamin D deficiency, unspecified, K21.9 - Gastro- esophageal reflux disease without esophagitis, R00.2 - Palpitations, I10 - Essential (primary) hypertension, E11.9 - Type 2 diabetes mellitus without complications, E78.00 - Pure hypercholesterolemia, unspecified Vitamin B12 4 Months E53.8 - Deficiency of other specified B group vitamins, E55.9 - Vitamin D deficiency, unspecified, K21.9 - Gastro-esophageal reflux disease without esophagitis, R00.2 - Palpitations, I10 - Essential (primary) hypertension, E11.9 - Type 2 diabetes mellitus without complications, E78.00 - Pure hypercholesterolemia, unspecified Lipid Panel 4 Months E53.8 - Deficiency of other specified B group vitamins, E55.9 - Vitamin D deficiency, unspecified, K21.9 - Gastro-esophageal reflux disease without esophagitis, R00.2 - Palpitations, I10 - Essential (primary) hypertension, E11.9 - Type 2 diabetes mellitus without complications, E78.00 - Pure hypercholesterolemia, unspecified Medications: Changed From blood sugar diagnostic As directed 50 ea 3RF E11.9 - Type 2 diabetes mellitus without complications To blood sugar diagnostic (FreeStyle Lite Strips) As directed 50 ea 3RF E11.9 - Type 2 diabetes mellitus without complications From blood sugar diagnostic As directed 50 ea 3RF E11.9 - Type 2 diabetes mellitus without complications To blood sugar diagnostic (FreeStyle Lite Strips) check blood sugars before meals and at bedtime 50 ea 3RF E11.9 - Type 2 diabetes mellitus without complications Refilled ketotifen fumarate 0.025%(0.035%) (Zaditor) administer at least 8 hours apart 1 drp ophthalmic (eye) BID PRN 5 mL 0RF allergy symptoms
== END 2024-03-08 11:09 | disposition home or self-care (01) ==
PROVIDERS: PCP Internal Medicine
DX: I10 Essential (primary) hypertension (principal); E78.00 Pure hypercholesterolemia, unspecified; E11.9 Type 2 diabetes mellitus without complications; R00.2 Palpitations; K21.9 Gastro-esophageal reflux disease without esophagitis; M17.12 Unilateral primary osteoarthritis, left knee; I83.813 Varicose veins of bilateral lower extremities with pain; E53.8 Deficiency of other specified B group vitamins; E55.9 Vitamin D deficiency, unspecified; F41.9 Anxiety disorder, unspecified; F41.0 Panic disorder [episodic paroxysmal anxiety]

== ENCOUNTER → 2024-03-08 09:26 | Outpatient (BNVA) | payer OTHER, SELFPAY | PROVIDERS: PCP Internal Medicine | DX: I10 Essential (primary) hypertension (principal); E78.00 Pure hypercholesterolemia, unspecified; E11.9 Type 2 diabetes mellitus without complications; R00.2 Palpitations; K21.9 Gastro-esophageal reflux disease without esophagitis; M17.12 Unilateral primary osteoarthritis, left knee; I83.813 Varicose veins of bilateral lower extremities with pain; E53.8 Deficiency of other specified B group vitamins; E55.9 Vitamin D deficiency, unspecified; F41.9 Anxiety disorder, unspecified; F41.0 Panic disorder [episodic paroxysmal anxiety] | CPT/HCPCS: 96127; 99212 ==

== ENCOUNTER 2024-04-11 08:24 | Outpatient (REF) | payer OTHER, SELFPAY | END 2024-04-11 08:25 | disposition home or self-care (01) | LOC: HO.MAMMO 08:24 | PROVIDERS: PCP Internal Medicine; Visit Provider Internal Medicine | DX: Z12.31 Encounter for screening mammogram for malignant neoplasm of breast (principal) | CPT/HCPCS: 77063; 77067 ==

== ENCOUNTER → 2024-04-11 08:30 | Outpatient (BNV) | payer OTHER, SELFPAY | PROVIDERS: PCP Internal Medicine; Visit Provider Internal Medicine | DX: Z12.31 Encounter for screening mammogram for malignant neoplasm of breast (principal) | CPT/HCPCS: 77063; 77067 ==

== ENCOUNTER 2024-07-02 08:11 | Outpatient (REF) | payer OTHER, SELFPAY ==
[2024-07-02 08:47] LABS: MANUAL DIFF FLAG NO
[2024-07-02 08:58] LABS: Basophils Percent Auto 0.5 % (0-2); Eosinophils Absolute Auto 0.1 X10*3/uL (0.0-0.4); Eosinophils Percent Auto 1.1 % (0-4); Hemoglobin 12.4 g/dl (12.0-16.0); Imm Gran Abs Auto 0.01 X10*3/uL (0.00-0.03); Imm Gran Pct Auto 0.2 % (0.0-0.4); Lymphocytes Absolute Auto 1.7 X10*3/uL (1.2-4.9); Lymphocytes Percent Auto 29.9 % (20-40); Mean Corpuscular HGB Conc 32.6 g/dl (31.0-35.0); Mean Corpuscular Hemoglobin 29.8 pg (27.0-33.0); Mean Corpuscular Volume 91.3 fL (80.0-98.0); Monocytes Absolute Auto 0.4 X10*3/uL (0.1-1.2); Monocytes Percent Auto 7.4 % (2-11); Neutrophils Absolute Auto 3.5 x10*3/uL (2.0-8.3); Neutrophils Percent Auto 60.9 % (45-73); Platelet Count 243 X10*3/uL (160-400); Red Blood Count 4.16 X10*6/uL (4.20-5.50); Red Cell Distribution Width 13.2 % (11.0-16.0); White Blood Count 5.7 X10*3/uL (4.8-10.8)
[2024-07-02 09:27] LABS: Alanine Aminotransferase 40 U/L (0-31); Alkaline Phosphatase 69 U/L (39-117); Anion Gap 14 (12-20); Aspartate Amino Transferase 35 U/L (5-31); Bilirubin Total 0.5 mg/dL (0.0-1.0); Blood Urea Nitrogen 15 mg/dL (9-16); Calcium 9.6 mg/dL (8.4-10.2); Carbon Dioxide 29 mmol/L (22-29); Chloride 106 mmol/L (96-108); Cholesterol 166 mg/dL (<200); Estimated Glomerular Filt Rate > 60; Glucose Fasting 98 mg/dL (60-99); HDL Cholesterol 75 mg/dL (>40); LDL Cholesterol Calculated 82 mg/dL (<100); Potassium 4.4 mmol/L (3.3-5.1); Sodium 145 mmol/L (135-145); Total Protein 7.1 g/dL (6.5-8.0); Triglycerides 48 mg/dL (<150)
[2024-07-02 09:40] LABS: Appearance Urine Clear; Color Urine Yellow; Glucose Urine UA Negative (Negative); Leukocyte Esterase Urine Large (3+) (Negative); Nitrite Urine Negative (Negative); UMIC TRIGGER UACC YES; Urine Blood Negative (Negative); Urine Ketones Negative (Negative); Urine Protein Negative (Neg-Trace)
[2024-07-02 09:46] LABS: Bacteria Urine None Seen (None Seen); Hyaline Casts Urine 0-2 /LPF (0-2); RBC Urine 0-2 /HPF (0-2); UACC Culture Trigger YES; WBC Urine 21-50 /HPF (0-5)
[2024-07-02 09:47] LABS: TSH reflex Free T4 2.79 uIU/mL (0.32-4.0); Vitamin D 25-OH Total 47.6 ng/mL (>30)
[2024-07-02 10:00] LABS: Estimated Average Glucose 117 mg/dL; Hemoglobin A1C 125.6335 umol/L; Hemoglobin A1c % 5.7 % (<6.0); Total Hemoglobin (HGBA1C) 3279.7261 umol/L
[2024-07-02 10:36] LABS: Creatinine Urine 124.37 mg/dL; Microalbum/Creatinine Ratio Ur 21.7 ug/mg cr (<30)
== END 2024-07-02 08:12 | disposition home or self-care (01) ==
LOC: HO.LAB 08:11
PROVIDERS: PCP Internal Medicine
DX: D64.9 Anemia, unspecified (principal); E11.9 Type 2 diabetes mellitus without complications; E55.9 Vitamin D deficiency, unspecified; E78.00 Pure hypercholesterolemia, unspecified
CPT/HCPCS: 36415; 80053; 80061; 81001; 82043; 82306; 82570; 83036; 84443; 85025; 87086

== ENCOUNTER 2024-07-05 10:28 | Outpatient (AMB) | payer OTHER, SELFPAY ==
--- NOTE | 2024-07-05 10:46 | MHC.PC.OV ---
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 Accompanied by: Self / Same As Patient Allergies Penicillins Allergy (Mild, Verified 07/05/24 11:14) NUMBNESS Medication List - Last Reconciled 07/05/24 by Maxx Prieto MD [Wipes As directed] aspirin (Adult Low Dose Aspirin) 81 mg PO DAILY atorvastatin 40 mg PO DAILY 90 days blood sugar diagnostic (FreeStyle Lite Strips) check blood sugars before meals and at bedtime blood-glucose meter (FreeStyle Lite Meter kit) As directed cholecalciferol (vitamin D3) (Vitamin D3) 50 mcg PO DAILY folic acid 0.4 mg PO DAILY hydroxyzine HCl 50 mg PO BID PRN 30 days ibuprofen 200 mg PO Q6H PRN ketotifen fumarate 0.025%(0.035%) (Zaditor) 1 drp ophthalmic (eye) BID PRN [Long Panty Liners As directed] losartan 25 mg PO DAILY metformin 500 mg PO BID multivitamin (One Daily Multivitamin tablet) 1 tab PO DAILY Tobacco use date assessed: 07/05/24 Fall risk assessment: No Falls in past year Last assessed Fall Risk: 07/05/24 Dental Screening Dental Screen Date: 07/05/24 Did you have a dental visit in the last 12 months?: Yes Did you have a dental problem in the last 6 months where you did not have access to dental care?: No Was dental information given to patient?: Patient has dentist HPI 4 Month F/U HPI Details Patient comes in today for her follow-up visit States that she feels okay She denies any headaches or dizziness Denies any chest pains, no increased shortness of breath No nausea/vomiting, no abdominal pain No change in bowel habits noted She had her follow-up labs done a few days ago - to discuss her results FOR[facility]LY [facility] Medical History Varicose veins of bilateral lower extremities with pain Overweight (BMI 25.0-29.9) Depression Anxiety Vitamin B12 deficiency Vitamin D deficiency Osteoarthritis GERD without esophagitis Intermittent palpitations Benign essential hypertension Pure hypercholesterolemia Diabetes mellitus High cholesterol Hypertension Diabetes Fall Arthritis Hypertension Diabetes mellitus, type 2 Trigger ring finger of right hand Trigger finger Surgical History History of colonoscopy History of uterine prolapse Family History Father Hypertension Mother Stroke Son Hypertension Son Hypertension Sister No problems noted. Brother No problems noted. Social History Household Members: None Housing: Apartment Alcohol intake: never Patient Tobacco Use Status: Never used Tobacco e-Cigarette/Vaping Use: Never Used Second Hand Smoke Exposure: No service: No Current occupational status: disabled Cognitive needs: No Hearing needs: No Vision needs: Yes Questionnaire PHQ-9 Over the last 2 weeks, how often have you been bothered by any of the following problems? 1. Little interest or pleasure in doing things: not at all 2. Feeling down, depressed, or hopeless: not at all 3. Trouble falling or staying asleep, or sleeping too much: several days 4. Feeling tired or having little energy: not at all 5. Poor appetite or overeating: not at all 6. Feeling bad about yourself - or that you are a failure or have let yourself or your family down: not at all 7. Trouble concentrating on things, such as reading the newspaper or watching television: not at all 8. Moving or speaking so slowly that other people could have noticed. Or the opposite - being so fidgety or restless that you have been moving around a lot more than usual: not at all 9. Thoughts that you would be better off or of hurting yourself in some way: not at all Total score: 1 Depression Screening Interpretation: Negative Depression Screening Done: Yes 54729 - PHQ-9 Billing: Yes Source: Developed by Drs. Krzysztof Phelps, Ketty Wong, Florentino Aiken and colleagues, with an educational kat from [employer]. Thrive Questionnaire Date Thrive assessed: 07/05/24 I am a: Patient What is your living situation today?: I have a steady place to live Within the past 12 months, did the food you bought not last and you didn't have the money to get more?: Never true Within the past 12 months, did you worry whether your food would run out before you got money to buy more?: Never true Do you have trouble paying for medicines?: No Do you have trouble getting transportation to medical appointments?: No Do you have trouble paying your heating and electricity bill?: No Do you have trouble taking care of your child, family member or friend?: I choose not to answer this question Do you have trouble with day-to-day activities such as bathing, preparing meals, shopping, managing finances, etc.?: I choose not to answer this question Are you currently unemployed and looking for a job?: No Are you interested in more education?: No Please select the resources that you would like help with: None Currently or been in a relationship where the following occur: No concerns reported THRIVE Score: 0 AUDIT C Alcohol Use Questionnaire (AUDIT-C) 1. How often do you have a drink containing alcohol?: Never 3. How often do you have six or more drinks on one occasion?: Never Total Score: 0 Score Reviewed/Action Taken: Yes TALI-7 AMB Questionnaire TALI-7 Date TALI - 7 assessed: 07/05/24 Feeling nervous, anxious, or on edge: 0 = Not at all Not being able to stop or control worryin = Not at all Worrying too much about different things: 0 = Not at all Trouble relaxin = Not at all Being so restless that it is hard to sit still: 0 = Not at all Becoming easily annoyed or irritable: 0 = Not at all Feeling afraid as if something awful might happen: 0 = Not at all Total TALI-7 score (0-4 normal; 5-9 mild; 10-14 moderate; 15-21 severe): 0 Source: Developed by Drs. Krzysztof Phelps, Ketty Wong, Florentino Aiken and colleagues, with an educational kat from [employer]. TALI-7 Assessment Billing TALI-7 Assessment Tool: TALI-7 Assessment 63462 Review of Systems Const Denies chills, Denies fatigue, Denies fever(s) and Denies headache(s) ENT Denies dysphagia, Denies dizziness, Denies otalgia, Denies headache(s), Reports hearing loss (now has hearing aids), Denies odynophagia and Denies sore throat Card Denies chest pain, Denies chest pain with activity, Denies irregular heart rhythm, Denies palpitations and Denies dyspnea Resp Denies chest congestion, Denies cough and Denies dyspnea GI Denies abdominal pain, Denies constipation, Denies dysphagia, Denies heartburn, Denies diarrhea, Denies nausea, Denies odynophagia and Denies vomiting Denies difficulty voiding, Denies nocturia, Denies dysuria and Denies urinary urgency Musc Denies back pain, Reports arthralgias (in the right hip, on and off; base of right thumb/wrist; left shoulder) and Denies joint swelling Skin/Breast Denies rash Neuro Denies dizziness and Denies headache(s) Psych Reports anxiety (on and off) and Denies depression Endo Denies fatigue and Denies palpitations Physical exam (Primary Care) Vital Signs: Last Vital Signs Pulse 83 07/05/24 10:47 BP 126/70 07/05/24 10:47 Pulse Ox 98 07/05/24 10:47 Oxygen Delivery Method Room Air 07/05/24 10:47 BMI result Body Mass Index 22.3 Tobacco/Smoking Status: Tobacco use Status Tobacco use date assessed 07/05/24 07/05/24 10:51 Patient Tobacco Use Status Never used Tobacco 07/05/24 10:51 e-Cigarette/Vaping Use Never Used 07/05/24 10:51 PHQ-9: PHQ-9 Score PHQ-9: Total score 1 07/05/24 11:20 Depression Screening Interpretation: Negative Thrive Assessment: Date of Thrive Assessment Date Thrive assessed 07/05/24 07/05/24 10:51 Currently or been in a relationship where the following occur: No concerns reported Const General: no acute distress and alert HENMT Ears: TM's normal bilaterally and EAC's normal Throat: Yes posterior oropharynx normal and Yes tonsils normal (no TP congestion noted) Neck Neck: Yes no lymphadenopathy and Yes supple Thyroid: Thyroid normal Resp Auscultation: clear to auscultation bilaterally, no rales and no wheezes Cardio Rate: regular rate Rhythm: regular rhythm Heart sounds: no murmurs GI Palpation (GI): Soft to palpation and nontender Auscultation: normal bowel sounds General: Yes no CVA tenderness Back/Spine/Pelvis Back: no CVA tenderness Skin Rashes: no rashes Extrem Other: (+) scattered prominent varicose veins on both lower extremities; some are slightly tender on palpation General: Yes no clubbing, cyanosis or edema Right upper extremity: elbow/forearm Details: tenderness (over the muscles on the radial side of the forearm), wrist Details: tenderness; no swelling and Extremity exam: right hand Details: tenderness Location: of the thumb Location: at the MCP joint and no swelling Results Reviewed Results Reviewed: Laboratory Tests 07/02/24 07/02/24 08:42 08:44 WBC 5.7 Hgb 12.4 Hct 38.0 Plt Count 243 Sodium 145 Potassium 4.4 Creatinine 0.72 Estimated GFR > 60 Fasting Glucose 98 Hemoglobin A1c % 5.7 Calcium 9.6 AST 35 H ALT 40 H Triglycerides 48 Cholesterol 166 LDL Cholesterol, Calc 82 HDL Cholesterol 75 25-OH Vitamin D Total 47.6 TSH 2.79 Ur Specific [place] 1.020 Urine Protein Negative Urine Glucose (UA) Negative Urine Blood Negative Urine Nitrite Negative Ur Leukocyte Esterase Large (3+) H Microalb/Creat Ratio 21.7 Coding Level of Care Code Est Pt Level 4 (37714) Complex EM visit Add On G2211 Diagnoses Pure hypercholesterolemia E78.00 Type 2 diabetes mellitus without complication, without long-term current use of insulin E11.9 Diabetes mellitus type: type 2 Diabetes mellitus mcfp insulin use: without termite control service representative use Diabetes mellitus complication status: without complication Benign essential hypertension I10 Intermittent palpitations R00.2 GERD without esophagitis K21.9 Primary osteoarthritis, unspecified site M19.91 Osteoarthritis location: unspecified site Osteoarthritis type: primary Vitamin D deficiency E55.9 Vitamin B12 deficiency E53.8 Varicose veins of bilateral lower extremities with pain I83.813 Anxiety F41.9 Episode of recurrent major depressive disorder, unspecified depression episode severity F33.9 Depression Type: major depressive disorder Major depression recurrence: recurrent Active/Remission status: currently active Major depression episode severity: unspecified Additional Codes TALI-7 Assessment Billing - TALI-7 Assessment Tool: TALI-7 Assessment 71756 ([id number]) PHQ-9 - 45478 - PHQ-9 Billing: Yes ([id number]) Assessment & Plan Assessment & Plan (1) Pure hypercholesterolemia: Code(s): E78.00 - Pure hypercholesterolemia, unspecified Category: Medical Plan: Results of her labs done a few days ago reviewed and discussed with patient Reinforced low cholesterol diet Continue Atorvastatin 40 mg QD Will recheck her labs and fasting lipids in 4 months for follow up (2) Diabetes mellitus: Code(s): E11.9 - Type 2 diabetes mellitus without complications Category: Medical Qualifiers: Diabetes mellitus type: type 2 Diabetes mellitus termite control service representative insulin use: without mcfp use Diabetes mellitus complication status: without complication Qualified Code(s): E11.9 - Type 2 diabetes mellitus without complications Plan: Patient's HgbA1c was at 5.7% on her labs done a few days ago (her in-office HgbA1c was previously also at 5.7% a few months ago) - goal is <7.0% Reinforced diabetic diet Continue Metformin 500 mg BID (3) Benign essential hypertension: Code(s): I10 - Essential (primary) hypertension Category: Medical Plan: Reinforced low sodium diet - goal is systolic BP of at least 130 to 140 mm or less Continue Losartan 25 mg QD (4) Intermittent palpitations: Code(s): R00.2 - Palpitations Category: Medical Plan: Holter monitor done a few years ago showed sinus rhythm with occasional PACs; echocardiogram done back in July 2017 came out normal She was taking Metoprolol ER 25 mg QD previously for rate control but patient self-discontinued her Rx about a year ago as she did not feel that she needed to continue on it - states that she has not had any recurrence of symptoms since stopping Metoprolol ER until recently She was sent for an extended Holter a few months ago for further evaluation of her symptoms - this still showed (+) occasional PACs with a total burden of 0.5%; patient did dar 1 event that correlated with PACs She was reassured again of the benign nature of PACs and advised that if she feels that her palpitations are getting to be bothersome for her, then she can consider starting back on low dose Metoprolol ER to help alleviate her symptoms (5) GERD without esophagitis: Code(s): K21.9 - Gastro-esophageal reflux disease without esophagitis Category: Medical Plan: Dietary restrictions reinforced (6) Osteoarthritis: Code(s): M19.90 - Unspecified osteoarthritis, unspecified site Category: Medical Qualifiers: Osteoarthritis location: unspecified site Osteoarthritis type: primary Qualified Code(s): M19.91 - Primary osteoarthritis, unspecified site Plan: Continue Acetaminophen 325 mg 2 tablets 2 to 3 times a day as needed for joint pain Her left knee pain has improved a lot with cortisone injection and physical therapy X-rays of the right hip done a few months ago revealed (+) mild OA changes; states that her right hip pain has subsided a lot since X-rays of the right hand done in May 2022 also revealed (+) mild degenerative changes of the hands Have recommended to go to physical therapy if her hip pain and finger/hand pain flare up again; patient will call for referral if needed Follow-up with rheumatology and orthopedics as scheduled (7) Vitamin D deficiency: Code(s): E55.9 - Vitamin D deficiency, unspecified Category: Medical Plan: Continue Vitamin D3 1000 units QD (8) Vitamin B12 deficiency: Code(s): E53.8 - Deficiency of other specified B group vitamins Category: Medical Plan: Continue Vitamin B12 tablets 1000 mcg QD (9) Varicose veins of bilateral lower extremities with pain: Code(s): I83.813 - Varicose veins of bilateral lower extremities with pain Category: Medical Plan: S/P EVLT of the left lower extremity with (+) symptomatic improvement Follow up with vascular surgery as scheduled - she used to see Dr. Teresa Yip but was advised recently that Dr. Yip retired and someone else from [facility] took over for him (10) Anxiety: Code(s): F41.9 - Anxiety disorder, unspecified Category: Medical Plan: Continue Hydroxyzine 50 mg Q HS PRN Patient also used to take Buspirone 10 mg BID but it looks like she self-discontinued this a while back and she declines offer to start her back on Rx at this time Due to her recent anxiety and panic attack episode a few months ago, she was referred to psychiatry for further evaluation and management (11) Depression: Code(s): F32.9 - Major depressive disorder, single episode, unspecified Category: Medical Qualifiers: Depression Type: major depressive disorder Major depression recurrence: recurrent Active/Remission status: currently active Major depression episode severity: unspecified Qualified Code(s): F33.9 - Major depressive disorder, recurrent, unspecified Plan: Continue Fluoxetine 10 mg QD Follow-up with Psychiatry as scheduled Plan Follow up in 4 months Orders: Orders Hemoglobin A1c 4 Months E11.9 - Type 2 diabetes mellitus without complications TSH reflex Free T4 4 Months E78.00 - Pure hypercholesterolemia, unspecified UA CC w/rflx Micro + Cult 4 Months R30.0 - Dysuria Complete Blood Count Auto Diff 4 Months D64.9 - Anemia, unspecified Lipid Panel 4 Months E78.00 - Pure hypercholesterolemia, unspecified Comprehensive [place]. Panel Fast 4 Months E78.00 - Pure hypercholesterolemia, unspecified Microalbumin, Random (w Creat) 4 Months E11.9 - Type 2 diabetes mellitus without complications Vitamin D 25-OH Total 4 Months E55.9 - Vitamin D deficiency, unspecified
[2024-07-05 10:47] VITALS: BP 126/70; PULSE 83; O2SAT 98; BMI 22.3
--- OUTSIDE RECORDS SUMMARY | 2024-07-05 12:02 | XMS_ITS | Continuity of Care Document ---
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 Please verify the information with the gaspra of the legal document before using it for clinical purposes. Encounters Encounter Description Practice Location Reason(s) For Visit Diagnoses Date Provider Providers Copied on Encounter Offic Cons New/estab Mod-hi 60- [place] & [place] [facility], [address] [place] [address] [address], [place], [id number], [place] tel:[phone] [facility] - [place] Varicose veins of right lower extremity with other complicationsPa in in right lower legCramp and spasmRestless legs syndromePruritu s, unspecified 5 Jose Alberto SUNSHINE, AHMET, ANDREA Blankenship. [address] [facility] [address], [place], [place], [id number] , [place]. tel:[phone] Referring Provider: Maxx Prieto MD, [address] [place] [address] [address], [place], [address]. tel:[phone] [facility], [address] [facility] [address], [place], [id number], [place] tel:[phone] [facility] [place] Varicose veins of right lower extremity with pain Jose Alberto SUNSHINE, RVT, RPVI Krzysztof. [address] [facility], [address], [place], [place], [id number] , [place]. tel:[phone] Referring Provider: Maxx Prieto MD, [address] [place] [address] [address], [place], [address]. tel:[phone] Family History Family Member Type Diagnosis Age At Onset No Information Payers Payer name Insurance type Covered democrat ID Glenis saldana(s) [facility] CI [id number] Social History Type Description Quantity Date Captured Comments Alcohol Use Details Unknown Caffeine Use Details Unknown Tobacco Use Status Current non-smoker Smoking Status Never Smoker Non-Smoking Tobacco Use Details : No Details Available : No Details Available Sex Female Vital Signs Date / Time: Height Weight BMI Pulse Rate Blood Pressure Temperature Respiratory Rate Body Surface Area Head Circumference Head Circ. Percentile Wt./Abdiaziz. Percentile BMI percentile Pulse Ox Inhaled Ox 54.430 kg (120.00 lbs) 23.4 4 kg/m eter (2) 120/80 mm[Hg] Chief Complaint And Reason For Visit No Information Reason For Referral Reason For Referral No Information Plan Of Treatment Date Type Action Status Goal Diet education completed Referral Ordered: Weight management: Referral to physician timeframe: 3 Months (related to Body mass index (BMI) 23.0-23.9, adult) ordered Appointment Sophie Yuen BOOKED Appointment Sophie Yuen BOOKED Appointment Sophie Yuen BOOKED Appointment Sophie Yuen BOOKED Appointment Sophie Yuen BOOKED Appointment Sophie Yuen BOOKED Appointment Sophie Yuen BOOKED Appointment Sophie Yuen BOOKED History Of Present Illness Encounter Date Complaint History Of Prese nt Illness No Information Functional Status Date Functional Assessmen t No Information Instructions Date Instruction Additional Infor darius Patient education booklet given Related to Varicose veins of right lower extremity with other complications Pre and post instruc tions reviewed and provided Related to Varicose veins of right lower extremity with other complications Diet education Related to Body mass index (BMI) 23.0-23.9, adult Giving Encouragement to exercise Related to Body mass index (BMI) 23.0-23.9, adult Lifestyle education Related to B kenna mass index (BMI) 23.0-23.9, adult Assessments Type Assessment Date No Information Patient Care Teams Name Effective Dates (start - stop) Status Members No Information
== END 2024-07-05 11:25 | disposition home or self-care (01) ==
LOC: HO.HMCH 10:29
PROVIDERS: PCP Internal Medicine; Visit Provider Internal Medicine
DX: E78.00 Pure hypercholesterolemia, unspecified (principal); E11.9 Type 2 diabetes mellitus without complications; I10 Essential (primary) hypertension; R00.2 Palpitations; K21.9 Gastro-esophageal reflux disease without esophagitis; M19.91 Primary osteoarthritis, unspecified site; E55.9 Vitamin D deficiency, unspecified; E53.8 Deficiency of other specified B group vitamins; I83.813 Varicose veins of bilateral lower extremities with pain; F41.9 Anxiety disorder, unspecified; F33.9 Major depressive disorder, recurrent, unspecified

== ENCOUNTER → 2024-07-05 10:28 | Outpatient (BNVA) | payer OTHER, SELFPAY | PROVIDERS: PCP Internal Medicine; Visit Provider Internal Medicine | DX: E78.00 Pure hypercholesterolemia, unspecified (principal); E11.9 Type 2 diabetes mellitus without complications; I10 Essential (primary) hypertension; R00.2 Palpitations; K21.9 Gastro-esophageal reflux disease without esophagitis; M19.91 Primary osteoarthritis, unspecified site; E55.9 Vitamin D deficiency, unspecified; E53.8 Deficiency of other specified B group vitamins; I83.813 Varicose veins of bilateral lower extremities with pain; F41.9 Anxiety disorder, unspecified; F33.9 Major depressive disorder, recurrent, unspecified; Z79.84 Long term (current) use of oral hypoglycemic drugs; Z79.899 Other long term (current) drug therapy | CPT/HCPCS: 96127; 99212 ==

== ENCOUNTER 2024-07-28 14:47 | Outpatient (REF) | payer OTHER, SELFPAY ==
--- NOTE | ~2024-07-28 | XR_ITS ---
CLINICAL HISTORY: R10.2 - Pelvic and perineal pain 2 view pelvis Comparison: None Findings: No acute fracture or dislocation. No significant arthritic changes. Soft tissues are unremarkable. IMPRESSION: 1. No acute findings. This document has been electronically signed by: Justice Briceno MD on 07/30/2024 09:31:58
--- NOTE | ~2024-07-28 | XR_ITS ---
CLINICAL HISTORY: M54.50 - Low back pain, unspecified 3 views lumbar spine Comparison: None Findings: Normal vertebral body alignment. No acute fractures or dislocation. There is multiple level degenerative facet change. IMPRESSION: No acute findings. This document has been electronically signed by: Justice Briceno MD on 07/30/2024 09:31:40
--- OUTSIDE RECORDS SUMMARY | 2024-07-28 14:51 | XMS_ITS | Continuity of Care Document ---
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 Please verify the information with the gaspar of the legal document before using it for clinical purposes. Encounters Encounter Description Practice Location Reason(s) For Visit Diagnoses Date Provider Providers Copied on Encounter Offic/outpt E&m Estab 5 Min Trial- Telemedicine [place] & [place] [facility], [address] [place] [address] [address], [place], [id number], [place] tel:[phone] [facility] [place] Cramp and spasmRestless legs syndromeVenou s insufficiency (chronic) (peripheral)P ruritus, unspecifiedTy pe 2 diabetes mellitus without complications Essential (primary) hypertension Griffin Tillman. [address] [facility], [facility] [address], [place], [id number], [place]. tel:[phone] Referring Provider: Maxx Prieto MD, [address] [place] [address] [address], [place], [address]. tel:[phone] Offic Cons New/estab Mod-hi 60- [place] & [place] [facility], [address] [place] [address] [address], [place], [id number], tel:[phone] [facility] Varicose veins of right lower extremity with other complications Pain in right lower legCramp and spasmRestless legs syndromePruri tus, unspecified 5 Jose Alberto SUNSHINE, AHMET, ANDREA Blankenship. [address] [place] [address], [place], [place], [id number], [place]. tel:[phone] Referring Provider: Maxx Prieto MD, [address] [place] [address] [address], [place], [address]. tel:[phone] [facility], [address] [place] [address] [address], [id number], [place] tel:[phone] CVR - [place] Varicose veins of right lower extremity with pain 5 Jose Alberto SUNSHINE RVT, ANDREA Blankenship. [address] [place] [address], [place], [place], [id number], [place]. tel:[phone] Referring Provider: Maxx Prieto MD, [address] [place] [address] [address], [place], [address]. tel:[phone] Family History Family Member Type Diagnosis Age At Onset No Information Payers Payer name Insurance type Covered constitution party ID Glenis saldana(s) [facility] CI [id number] Social History Type Description Quantity Date Captured [...] darius Patient education booklet given Related to Cramp and spasm Pre and post instruc tions reviewed and provided Related to Cramp and spasm Patient education booklet given Related to Varicose [...]
== END 2024-07-28 14:48 | disposition home or self-care (01) ==
LOC: HO.XRAY 14:47
PROVIDERS: Visit Provider Internal Medicine
DX: M54.50 Low back pain, unspecified (principal); R10.2 Pelvic and perineal pain; Z91.81 History of falling
CPT/HCPCS: 72100; 72170

== ENCOUNTER → 2024-07-28 14:51 | Outpatient (BNV) | payer OTHER, SELFPAY | PROVIDERS: Visit Provider Specialist | DX: M54.50 Low back pain, unspecified (principal); R10.2 Pelvic and perineal pain | CPT/HCPCS: 72100; 72170 ==

== ENCOUNTER 2024-11-17 08:26 | Outpatient (REF) | payer OTHER, SELFPAY ==
[2024-11-17 08:44] LABS: MANUAL DIFF FLAG NO
[2024-11-17 08:56] LABS: Hematocrit 38.0 % (37.0-47.0); Hemoglobin 12.6 g/dl (12.0-16.0); Imm Gran Abs Auto 0.00 X10*3/uL (0.00-0.03); Imm Gran Pct Auto 0.0 % (0.0-0.4); Lymphocytes Absolute Auto 1.5 X10*3/uL (1.2-4.9); Mean Corpuscular HGB Conc 33.2 g/dl (31.0-35.0); Mean Corpuscular Hemoglobin 30.0 pg (27.0-33.0); Mean Corpuscular Volume 90.5 fL (80.0-98.0); NRBC Abs Auto 0.000 X10*3/uL (0.0-0.012); NRBC Pct Auto 0.0 /100WBC (0.0-0.2); Platelet Count 246 X10*3/uL (160-400); Red Blood Count 4.20 X10*6/uL (4.20-5.50); White Blood Count 4.7 X10*3/uL (4.8-10.8)
[2024-11-17 09:27] LABS: Hemoglobin A1C 132.2472 umol/L; Total Hemoglobin (HGBA1C) 3316.8193 umol/L
[2024-11-17 09:44] LABS: Alanine Aminotransferase 23 U/L (0-31); Albumin Level 4.3 g/dL (3.5-5.0); Alkaline Phosphatase 74 U/L (39-117); Anion Gap 7 (12-20); Aspartate Amino Transferase 29 U/L (5-31); Blood Urea Nitrogen 10 mg/dL (9-16); Calcium 9.6 mg/dL (8.4-10.2); Carbon Dioxide 32 mmol/L (22-29); Chloride 105 mmol/L (96-108); Cholesterol 142 mg/dL (<200); Estimated Glomerular Filt Rate > 60; HDL Cholesterol 69 mg/dL (>40); Potassium 3.9 mmol/L (3.3-5.1); Sodium 140 mmol/L (135-145); Total Protein 7.1 g/dL (6.5-8.0); Triglycerides 40 mg/dL (<150)
[2024-11-17 10:01] LABS: Appearance Urine Clear; Glucose Urine UA Negative (Negative); PH 7.5 (5.0-9.0); Specific Gravity - Urine 1.010 (1.005-1.025); UMIC TRIGGER UACC YES
[2024-11-17 10:08] LABS: UACC Culture Trigger YES
[2024-11-17 10:13] LABS: Folate 13.9 ng/mL (> or = 4.0); Vitamin B12 355 pg/mL (200-900)
[2024-11-17 10:36] LABS: Microalbum/Creatinine Ratio Ur 13.2 ug/mg cr (<30)
== END 2024-11-17 08:27 | disposition home or self-care (01) ==
LOC: HO.LAB 08:26
PROVIDERS: PCP Internal Medicine; Visit Provider Internal Medicine
DX: E11.9 Type 2 diabetes mellitus without complications (principal); E53.8 Deficiency of other specified B group vitamins; K21.9 Gastro-esophageal reflux disease without esophagitis; E78.00 Pure hypercholesterolemia, unspecified; R00.2 Palpitations; I10 Essential (primary) hypertension; D64.9 Anemia, unspecified; E55.9 Vitamin D deficiency, unspecified
CPT/HCPCS: 36415; 80053; 80061; 81001; 81003; 82043; 82306; 82570; 82607; 82746; 83036; 84443; 85025; 87086

== ENCOUNTER 2024-11-22 09:32 | Outpatient (AMB) | payer OTHER, SELFPAY ==
[2024-11-22 09:37] VITALS: BP 112/78; PULSE 75; O2SAT 98; BMI 22.3
--- NOTE | 2024-11-22 09:37 | MHC.PC.OV ---
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 Accompanied by: Self / Same As Patient Allergies Penicillins Allergy (Mild, Verified 11/22/24 10:37) NUMBNESS Medication List - Last Reconciled 11/22/24 by Maxx Prieto MD [Wipes As directed] aspirin (Adult Low Dose Aspirin) 81 mg PO DAILY atorvastatin 40 mg PO DAILY 90 days blood sugar diagnostic (FreeStyle Lite Strips) check blood sugars before meals and at bedtime blood-glucose meter (FreeStyle Lite Meter kit) As directed cholecalciferol (vitamin D3) (Vitamin D3) 50 mcg PO DAILY folic acid 0.4 mg PO DAILY hydroxyzine HCl 50 mg PO BID PRN 30 days ibuprofen 200 mg PO Q6H PRN ketotifen fumarate 0.025%(0.035%) (Zaditor) 1 drp ophthalmic (eye) BID PRN [Long Panty Liners As directed] losartan 25 mg PO DAILY metformin 500 mg PO BID multivitamin (One Daily Multivitamin tablet) 1 tab PO DAILY Tobacco use date assessed: 11/22/24 Fall risk assessment: No Falls in past year Last assessed Fall Risk: 11/22/24 Dental Screening Dental Screen Date: 11/22/24 Did you have a dental visit in the last 12 months?: No Did you have a dental problem in the last 6 months where you did not have access to dental care?: No Was dental information given to patient?: Patient has dentist HPI 4 Months HPI Details Patient comes in today for her follow-up visit for her HTN, DM, hyperlipidemia States that she feels okay She denies any headaches or dizziness Denies any chest pains, no increased shortness of breath No nausea/vomiting, no abdominal pain No change in bowel habits noted She had her follow-up labs done a few days ago - to discuss her results [facility] Medical History Varicose veins of bilateral lower extremities with pain Overweight (BMI 25.0-29.9) Depression Anxiety Vitamin B12 deficiency Vitamin D deficiency Osteoarthritis GERD without esophagitis Intermittent palpitations Benign essential hypertension Pure hypercholesterolemia Diabetes mellitus High cholesterol Hypertension Diabetes Fall Arthritis Hypertension Diabetes mellitus, type 2 Trigger ring finger of right hand Trigger finger Surgical History History of colonoscopy History of uterine prolapse Family History Father Hypertension Mother Stroke Son Hypertension Son Hypertension Sister No problems noted. Brother No problems noted. Social History Household Members: None Housing: Apartment Alcohol intake: never Patient Tobacco Use Status: Never used Tobacco e-Cigarette/Vaping Use: Never Used Second Hand Smoke Exposure: No service: No Current occupational status: disabled Cognitive needs: No Hearing needs: No Vision needs: Yes Questionnaire PHQ-9 Over the last 2 weeks, how often have you been bothered by any of the following problems? Depression Screening Interpretation: Negative Depression Screening Done: Yes Source: Developed by Drs. Krzysztof Phelps, Ketty Wong, Florentino Aiken and colleagues, with an educational kat from [employer]. Thrive Questionnaire Date Thrive assessed: 07/05/24 I am a: Patient What is your living situation today?: I have a steady place to live Within the past 12 months, did the food you bought not last and you didn't have the money to get more?: Never true Within the past 12 months, did you worry whether your food would run out before you got money to buy more?: Never true Do you have trouble paying for medicines?: No Do you have trouble getting transportation to medical appointments?: No Do you have trouble paying your heating and electricity bill?: No Do you have trouble taking care of your child, family member or friend?: I choose not to answer this question Do you have trouble with day-to-day activities such as bathing, preparing meals, shopping, managing finances, etc.?: I choose not to answer this question Are you currently unemployed and looking for a job?: Yes Are you interested in more education?: No Please select the resources that you would like help with: None Currently or been in a relationship where the following occur: No concerns reported THRIVE Score: 0 AUDIT C Alcohol Use Questionnaire (AUDIT-C) 1. How often do you have a drink containing alcohol?: Never 3. How often do you have six or more drinks on one occasion?: Never Total Score: 0 Score Reviewed/Action Taken: Yes TALI-7 AMB Questionnaire TALI-7 Date TALI - 7 assessed: 07/05/24 Feeling nervous, anxious, or on edge: 0 = Not at all Not being able to stop or control worryin = Several days Worrying too much about different things: 1 = Several days Trouble relaxin = Several days Being so restless that it is hard to sit still: 1 = Several days Becoming easily annoyed or irritable: 0 = Not at all Feeling afraid as if something awful might happen: 0 = Not at all Total TALI-7 score (0-4 normal; 5-9 mild; 10-14 moderate; 15-21 severe): 4 Source: Developed by Drs. Krzysztof Phelps, Ketty Wong, Florentino Aiken and colleagues, with an educational kat from [employer]. Review of Systems Const Denies chills, Denies fatigue, Denies fever(s) and Denies headache(s) ENT Denies dysphagia, Denies dizziness, Denies otalgia, Denies headache(s), Reports hearing loss (now has hearing aids), Denies odynophagia and Denies sore throat Card Denies chest pain, Denies chest pain with activity, Denies irregular heart rhythm, Denies palpitations and Denies dyspnea Resp Denies chest congestion, Denies cough and Denies dyspnea GI Denies abdominal pain, Denies constipation, Denies dysphagia, Denies heartburn, Denies diarrhea, Denies nausea, Denies odynophagia and Denies vomiting Denies difficulty voiding, Denies nocturia, Denies dysuria and Denies urinary urgency Musc Denies back pain, Reports arthralgias (in the right hip, on and off; base of right thumb/wrist; left shoulder) and Denies joint swelling Skin/Breast Denies rash Neuro Denies dizziness and Denies headache(s) Psych Reports anxiety (on and off) and Denies depression Endo Denies fatigue and Denies palpitations Physical exam (Primary Care) Vital Signs: Last Vital Signs Pulse 75 11/22/24 09:37 BP 112/78 11/22/24 09:37 Pulse Ox 98 11/22/24 09:37 Oxygen Delivery Method Room Air 11/22/24 09:37 BMI result Body Mass Index 22.3 Tobacco/Smoking Status: Tobacco use Status Tobacco use date assessed 11/22/24 11/22/24 09:59 Patient Tobacco Use Status Never used Tobacco 11/22/24 09:37 e-Cigarette/Vaping Use Never Used 11/22/24 09:37 Depression Screening Interpretation: Negative Thrive Assessment: Date of Thrive Assessment Date Thrive assessed 07/05/24 11/22/24 09:37 Currently or been in a relationship where the following occur: No concerns reported Const General: no acute distress and alert HENMT Ears: TM's normal bilaterally and EAC's normal Throat: Yes posterior oropharynx normal and Yes tonsils normal (no TP congestion noted) Neck Neck: Yes no lymphadenopathy and Yes supple Thyroid: Thyroid normal Resp Auscultation: clear to auscultation bilaterally, no rales and no wheezes Cardio Rate: regular rate Rhythm: regular rhythm Heart sounds: no murmurs GI Palpation (GI): Soft to palpation and nontender Auscultation: normal bowel sounds General: Yes no CVA tenderness Back/Spine/Pelvis Back: no CVA tenderness Skin Rashes: no rashes Extrem Other: (+) scattered prominent varicose veins on both lower extremities; some are slightly tender on palpation General: Yes no clubbing, cyanosis or edema Right upper extremity: elbow/forearm Details: tenderness (over the muscles on the radial side of the forearm), wrist Details: tenderness; no swelling and Extremity exam: right hand Details: tenderness Location: of the thumb Location: at the MCP joint and no swelling Results Reviewed Results Reviewed: Laboratory Tests 11/17/24 11/17/24 08:37 08:43 WBC 4.7 L Hgb 12.6 Hct 38.0 Plt Count 246 Sodium 140 Potassium 3.9 Creatinine 0.67 Estimated GFR > 60 Fasting Glucose 94 Hemoglobin A1c % 5.8 Calcium 9.6 AST 29 ALT 23 Triglycerides 40 Cholesterol 142 LDL Cholesterol, Calc 65 HDL Cholesterol 69 Vitamin B12 355 25-OH Vitamin D Total 59.4 TSH 3.76 Ur Specific [place] 1.010 Urine Protein Negative Urine Glucose (UA) Negative Urine Blood Negative Urine Nitrite Negative Ur Leukocyte Esterase Moderate (2+) H Microalb/Creat Ratio 13.2 Coding Level of Care Code Est Pt Level 4 (71203) Diagnoses Pure hypercholesterolemia E78.00 Type 2 diabetes mellitus without complication, without long-term current use of insulin E11.9 Diabetes mellitus type: type 2 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 use: without 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 use Diabetes mellitus complication status: without complication Benign essential hypertension I10 Intermittent palpitations R00.2 GERD without esophagitis K21.9 Primary osteoarthritis, unspecified site M19.91 Osteoarthritis location: unspecified site Osteoarthritis type: primary Vitamin D deficiency E55.9 Vitamin B12 deficiency E53.8 Varicose veins of bilateral lower extremities with pain I83.813 Anxiety F41.9 Episode of recurrent major depressive disorder, unspecified depression episode severity F33.9 Depression Type: major depressive disorder Major depression recurrence: recurrent Active/Remission status: currently active Major depression episode severity: unspecified Assessment & Plan Assessment & Plan (1) Pure hypercholesterolemia: Code(s): E78.00 - Pure hypercholesterolemia, unspecified Category: Medical Plan: Results of her labs done a few days ago reviewed and discussed with patient Reinforced low cholesterol diet Continue Atorvastatin 40 mg QD Will recheck her labs and fasting lipids in 4 months for follow up (2) Diabetes mellitus: Code(s): E11.9 - Type 2 diabetes mellitus without complications Category: Medical Qualifiers: Diabetes mellitus type: type 2 Diabetes mellitus mcfp insulin use: without mcfp use Diabetes mellitus complication status: without complication Qualified Code(s): E11.9 - Type 2 diabetes mellitus without complications Plan: Patient's HgbA1c was at 5.8% on her labs done a few days ago (was previously at 5.7% a few months ago) - goal is <7.0% Reinforced diabetic diet Continue Metformin 500 mg BID (3) Benign essential hypertension: Code(s): I10 - Essential (primary) hypertension Category: Medical Plan: Reinforced low sodium diet - goal is systolic BP of at least 130 to 140 mm or less Continue Losartan 25 mg QD Patient is reminded to continue monitoring her blood pressure regularly (4) Intermittent palpitations: Code(s): R00.2 - Palpitations Category: Medical Plan: Holter monitor done a few years ago showed sinus rhythm with occasional PACs; echocardiogram done back in July 2017 came out normal She was taking Metoprolol ER 25 mg QD previously for rate control but self-discontinued her Rx about a year ago as she did not feel that she needed to continue on it - states that she has not had any recurrence of symptoms since stopping Metoprolol ER until recently She was sent for an extended Holter monitor a few months ago for further evaluation of her symptoms - this still showed (+) occasional PACs with a total burden of 0.5%; patient did dar 1 event that correlated with PACs She was reassured again of the benign nature of PACs and advised that if she feels that her palpitations are getting to be bothersome for her, then we can consider starting her back on low dose Metoprolol ER to help alleviate her symptoms (5) GERD without esophagitis: Code(s): K21.9 - Gastro-esophageal reflux disease without esophagitis Category: Medical Plan: Dietary restrictions reinforced (6) Osteoarthritis: Code(s): M19.90 - Unspecified osteoarthritis, unspecified site Category: Medical Qualifiers: Osteoarthritis location: unspecified site Osteoarthritis type: primary Qualified Code(s): M19.91 - Primary osteoarthritis, unspecified site Plan: Continue Acetaminophen 325 mg 2 tablets 2 to 3 times a day as needed for joint pain Her left knee pain has improved a lot with cortisone injection and physical therapy X-rays of the right hip done a few months ago revealed (+) mild OA changes; states that her right hip pain has subsided a lot since X-rays of the right hand done in May 2022 also revealed (+) mild degenerative changes of the hands Have recommended that she go to physical therapy if her hip pain and finger/hand pain flare up again; patient will call for referral if needed Follow-up with rheumatology and orthopedics as scheduled (7) Vitamin D deficiency: Code(s): E55.9 - Vitamin D deficiency, unspecified Category: Medical Plan: Continue Vitamin D3 1000 units QD (8) Vitamin B12 deficiency: Code(s): E53.8 - Deficiency of other specified B group vitamins Category: Medical Plan: Continue Vitamin B12 tablets 1000 mcg QD (9) Varicose veins of bilateral lower extremities with pain: Code(s): I83.813 - Varicose veins of bilateral lower extremities with pain Category: Medical Plan: S/P EVLT of the left lower extremity with (+) symptomatic improvement Follow up with vascular surgery as scheduled - she used to see Dr. Teresa Yip but was advised recently that Dr. Yip retired and someone else from [facility] took over for him (10) Anxiety: Code(s): F41.9 - Anxiety disorder, unspecified Category: Medical Plan: Continue Hydroxyzine 50 mg Q HS PRN Patient also used to take Buspirone 10 mg BID but it looks like she self-discontinued this a while back and she declines offer to start her back on Rx at this time Due to her recent anxiety and panic attack episode a few months ago, she was referred to psychiatry for further evaluation and management (11) Depression: Code(s): F32.9 - Major depressive disorder, single episode, unspecified Category: Medical Qualifiers: Depression Type: major depressive disorder Major depression recurrence: recurrent Active/Remission status: currently active Major depression episode severity: unspecified Qualified Code(s): F33.9 - Major depressive disorder, recurrent, unspecified Plan: Continue Fluoxetine 10 mg QD Follow-up with Psychiatry as scheduled Plan Follow up in 4 months Orders: Orders Comprehensive [place]. Panel Fast 4 Months E78.00 - Pure hypercholesterolemia, unspecified TSH reflex Free T4 4 Months E78.00 - Pure hypercholesterolemia, unspecified UA CC w/rflx Micro + Cult 4 Months R30.0 - Dysuria Complete Blood Count Auto Diff 4 Months D64.9 - Anemia, unspecified Lipid Panel 4 Months E78.00 - Pure hypercholesterolemia, unspecified Microalbumin, Random (w Creat) 4 Months E11.9 - Type 2 diabetes mellitus without complications Hemoglobin A1c 4 Months E11.9 - Type 2 diabetes mellitus without complications Vitamin B12 and Folate 4 Months E53.8 - Deficiency of other specified B group vitamins Vitamin D 25-OH Total 4 Months E55.9 - Vitamin D deficiency, unspecified Medications: Changed From folic acid 0.4 mg PO DAILY To folic acid 1 mg PO DAILY 90 tabs 3RF 90 days From aspirin (Adult Low Dose Aspirin) 81 mg PO DAILY To aspirin (Adult Low Dose Aspirin) 81 mg PO DAILY 90 tabs 3RF 90 days
== END 2024-11-22 10:57 | disposition home or self-care (01) ==
LOC: HO.HMCH 09:33
PROVIDERS: PCP Internal Medicine; Visit Provider Internal Medicine
DX: E78.00 Pure hypercholesterolemia, unspecified (principal); E11.9 Type 2 diabetes mellitus without complications; I10 Essential (primary) hypertension; R00.2 Palpitations; K21.9 Gastro-esophageal reflux disease without esophagitis; M19.91 Primary osteoarthritis, unspecified site; E55.9 Vitamin D deficiency, unspecified; E53.8 Deficiency of other specified B group vitamins; I83.813 Varicose veins of bilateral lower extremities with pain; F41.9 Anxiety disorder, unspecified; F33.9 Major depressive disorder, recurrent, unspecified

== ENCOUNTER → 2024-11-22 09:32 | Outpatient (BNVA) | payer OTHER, SELFPAY | PROVIDERS: PCP Internal Medicine; Visit Provider Internal Medicine | DX: I10 Essential (primary) hypertension (principal); E11.9 Type 2 diabetes mellitus without complications; E55.9 Vitamin D deficiency, unspecified; E78.00 Pure hypercholesterolemia, unspecified; R00.2 Palpitations; K21.9 Gastro-esophageal reflux disease without esophagitis; M19.91 Primary osteoarthritis, unspecified site; E53.8 Deficiency of other specified B group vitamins; I83.813 Varicose veins of bilateral lower extremities with pain; F41.9 Anxiety disorder, unspecified; F33.9 Major depressive disorder, recurrent, unspecified; R30.0 Dysuria; D64.9 Anemia, unspecified | CPT/HCPCS: 99212 ==